=== PATIENT | male | born 1945 | race Caucasian/White ===

== ENCOUNTER 2017-12-10 09:53 | Day surgery (SDC) | payer MEDICARE, OTHER ==
[~2017-12-10 09:53] MED LIST: Metoclopramide 10 MG/2 ML SDV IV PRN; Sodium Chloride 0.9% 1,000 ML IV SCH; Sodium Chloride 0.9% 10 ML Syringe FLUSH PRN
[2017-12-10] MEDS ORDERED: Propofol 200 MG/20 ML SDV ONE (11:15)
--- NOTE | 2017-12-10 19:14 | OR ---
DATE OF OPERATION: 12/10/2017 PREOPERATIVE DIAGNOSIS: Left lower quadrant pain. POSTOPERATIVE DIAGNOSIS: Left lower quadrant pain. PROCEDURE: Colonoscopy. ANESTHESIA: MAC. ESTIMATED BLOOD LOSS: None. COMPLICATIONS: None. INDICATIONS FOR THE PROCEDURE: The patient is a 72-year-old male, who has had intermittent left lower quadrant pain now for the past several months. The patient was also due for a screening colonoscopy. Last colonoscopy was apparently at least 15 years ago. Was found to have polyps at that time. Otherwise aside from the pain, no other change in bowel habits. DESCRIPTION OF PROCEDURE: Informed consent was obtained from the patient. The patient was taken to the operating room, placed on the table in the left lateral decubitus position. Monitored anesthesia care was administered. Digital rectal exam did show some external anal skin tags. The colonoscope was then advanced through the anus and directed towards the cecum. Cecum was identified by ileocecal valve as well as appendiceal orifice. The ileocecal valve was intubated. The terminal ileum did appear to be normal. Colonoscope was then slowly withdrawn. The patient did have moderate to severe descending and sigmoid diverticulosis. No signs of any acute inflammation. The patient otherwise had no polyps, no masses, no areas of ischemia or inflammation. Retroflexion was performed in the rectum which was also unremarkable. Colonoscope was then withdrawn. FINDINGS: Moderate to severe descending and sigmoid diverticulosis. RECOMMENDATIONS: We would recommend increase water and high-fiber diet, otherwise, no further screening colonoscopies at this time. JEREMIAH/BETZY /[id number]
== END 2017-12-10 13:48 | disposition home or self-care (01) ==
LOC: LB.SDS 09:53
PROVIDERS: ATTEND Surgery
DX: K57.30 Diverticulosis of large intestine without perforation or abscess without bleeding (principal); K59.00 Constipation, unspecified; E78.00 Pure hypercholesterolemia, unspecified; I12.9 Hypertensive chronic kidney disease with stage 1 through stage 4 chronic kidney disease, or unspecified chronic kidney disease; N18.9 Chronic kidney disease, unspecified; M15.9 Polyosteoarthritis, unspecified; L20.89 Other atopic dermatitis; Z79.899 Other long term (current) drug therapy; Z88.2 Allergy status to sulfonamides; Z86.010 Personal history of colon polyps
CPT/HCPCS: J2704; J7040; J7050

== ENCOUNTER 2017-12-21 12:31 | Emergency (ER) | payer MEDICARE, OTHER ==
[~2017-12-21 12:31] MED LIST changes: -Metoclopramide 10 MG/2 ML SDV IV PRN; -Sodium Chloride 0.9% 1,000 ML IV SCH; -Sodium Chloride 0.9% 10 ML Syringe FLUSH PRN; +Sodium Chloride 0.9% 500 ML IV STA
[2017-12-21] MEDS: Sodium Chloride 0.9% 1,000 ML IV ONE (12:32)
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
[2017-12-22] MEDS ORDERED: Sodium Chloride 0.9% 10 ML Syringe FLUSH PRN (10:42)
[2017-12-22] MEDS: Sodium Chloride 0.9% 1,000 ML IV ONE (11:21)
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
== END 2017-12-21 13:34 ==
LOC: LB.ED 12:31
DX: S37.031A Laceration of right kidney, unspecified degree, initial encounter (principal); S36.113A Laceration of liver, unspecified degree, initial encounter; V49.40XA Driver injured in collision with unspecified motor vehicles in traffic accident, initial encounter
CPT/HCPCS: 36415; 36430; 51702; 71250; 74176; 80053; 85025; 86850; 86900; 86901; 86920; 86922; 96360; 99291; A0425; A0429; J7030; P9016

== ENCOUNTER 2018-10-16 09:34 | Observation (INO) | payer MEDICARE, OTHER ==
[2018-10-16] MEDS ORDERED: Ondansetron 4 MG/2 ML SDV IVPUSH ONE (09:59)
[2018-10-16] MEDS: Sodium Chloride 0.9% 1,000 ML IV SCH ×3 (10:14→15:05)
[2018-10-16] MEDS ORDERED: Ondansetron 4 MG/2 ML SDV ONE (10:15)
[2018-10-16] MEDS ORDERED: Ondansetron 4 MG/2 ML SDV IVPUSH PRN (12:20)
--- NOTE | 2018-10-16 12:56 | EDM.PDOC ---
ED HPI GENERAL MEDICAL PROBLEM - General Chief Complaint: Gastrointestinal Problem Stated Complaint: SICK Time Seen by Provider: 10/16/18 09:47 Source of Information: Reports: Patient, Family History Limitations: Reports: No Limitations - History of Present Illness INITIAL COMMENTS - FREE TEXT/NARRATIVE: This patient presents to the ED for evaluation of vomiting. He states the vomiting began during the night and he has had 10-12 episodes, continuing on arrival to the ED. Complaining of nausea but denies abdominal pain. Denies diarrhea. Completed chemo for pancreatic cancer in June 2018 but has port still in place. Has been doing well at home. Onset: Today, Sudden Onset Date: 10/16/18 Onset Time: 00:05 Duration: Getting Worse Bilateral Abdominal Pain Score (Numeric/FACES): 2 - Related Data Allergies Allergy/AdvReac Type Severity Reaction Status Date / Time No Known Allergies Allergy Verified 07/02/15 07:09 Home Meds: Home Meds Lisinopril [Prinivil] 20 mg PO DAILY 07/02/15 [History] Simvastatin [Zocor] 20 mg PO DAILY 07/02/15 [History] Enoxaparin [Lovenox] 60 mg SQ DAILY 10/16/18 [History] Past Medical History HEENT History: Reports: Cataract Cardiovascular History: Reports: High Cholesterol, Hypertension Respiratory History: Reports: Other (See Below) Other Respiratory History: 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, 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 Gastrointestinal History: Reports: Other (See Below) Other Gastrointestinal History: hx pancreatic ca Genitourinary History: Reports: Chronic Renal Insuffiency, Other (See Below) Other Genitourinary History: hx kidney stone from pet scan 1 cm, should pass Musculoskeletal History: Reports: Back Pain, Chronic Endocrine/Metabolic History: Reports: Other (See Below) Other Endocrine/Metabolic History: lynphs infected Oncologic (Cancer) History: Reports: Prostate, Other (See Below) Other Oncologic History: 2018 currently taking chemotherapy for multiple abnormalities found in abdomen, last chemo in june 2018 - Infectious Disease History Other Infectious Disease History: not sure - Past Surgical History HEENT Surgical History: Reports: Cataract Surgery GI Surgical History: Reports: Colonoscopy, Polypectomy Male Surgical History: Reports: Prostatectomy Musculoskeletal Surgical History: Reports: Hip Replacement, Shoulder Surgery Social & Family History - Family History Family Medical History: Noncontributory - Tobacco Use Smoking Status *Q: Never Smoker - Recreational Drug Use Recreational Drug Use: No ED ROS GENERAL - Review of Systems Review Of Systems: See Below Constitutional: Denies: Fever, Chills HEENT: Reports: No Symptoms Respiratory: Denies: Shortness of Breath, Wheezing, Cough Cardiovascular: Denies: Chest Pain GI/Abdominal: Reports: Nausea, Vomiting. Denies: Abdominal Pain, Diarrhea, Difficulty Swallowing Musculoskeletal: Reports: No Symptoms Skin: Reports: No Symptoms Neurological: Reports: No Symptoms ED EXAM, GI/ABD - Physical Exam Exam: See Below Exam Limited By: No Limitations General Appearance: Alert, No Apparent Distress Eyes: Bilateral: Normal Appearance Ears: Normal External Exam Nose: Normal Inspection, Normal Mucosa Throat/Mouth: Normal Inspection, Normal Oropharynx Head: Atraumatic, Normocephalic Neck: Normal Inspection, Supple, Non-Tender, Full Range of Motion Respiratory/Chest: No Respiratory Distress, Lungs Clear, Normal Breath Sounds, No Accessory Muscle Use Cardiovascular: Regular Rate, Rhythm GI/Abdominal Exam: Other (Bowel sounds hypoactive, mild abdominal distention. Tenderness with palpation of upper quadrants.) Extremities: Normal Range of Motion Neurological: Alert, Oriented Psychiatric: Normal Affect, Normal Mood Skin Exam: Warm, Dry Course - Vital Signs Last Recorded V/S: Last Vital Signs Temp 36.2 C 10/16/18 10:23 Pulse 75 10/16/18 12:10 Resp 20 10/16/18 12:10 BP 123/83 10/16/18 12:10 Pulse Ox 97 10/16/18 12:10 - Orders/Labs/Meds Orders: Active Orders 24 hr Category Date Time Status Admission Diagnosis [ADT] Urgent ADT 10/16/18 12:14 Active Patient Status [ADT] Routine ADT 10/16/18 12:19 Active Oral Fluid Challenge [RC] ASDIRECTED Care 10/16/18 12:14 Active Vital Signs [RC] PER UNIT ROUTINE Care 10/16/18 12:14 Active Abdomen Pelvis w Cont [CT] Stat Exams 10/16/18 09:58 Ordered Ondansetron [Zofran] Med 10/16/18 12:20 Active 4 mg IVPUSH Q4H PRN Sodium Chloride 0.9% [Normal Saline] 1,000 ml Med 10/16/18 10:00 Active IV ASDIRECTED Medication Orders Sodium Chloride (Normal Saline) 1,000 mls @ 1,000 mls/hr IV ASDIRECTED LAURA Last Admin: 10/16/18 12:33 Dose: 500 mls/hr Infusion: 10/16/18 11:14 Dose: 1,000 mls/hr Admin: 10/16/18 10:14 Dose: 1,000 mls/hr Ondansetron HCl (Zofran) 4 mg IVPUSH Q4H PRN PRN Reason: Nausea/Vomiting Labs: Laboratory Tests 10/16/18 Range/Units 10:15 Sodium 144 (136-145) mmol/L Potassium 4.2 (3.5-5.1) mmol/L Chloride 100 (98-107) mmol/L Carbon Dioxide 32.8 H D (21.0-32.0) mmol/L Anion Gap 15.4 H (5.0-15.0) mmol/L BUN 30 H D (8-26) mg/dL Creatinine 2.14 H D (0.70-1.30) mg/dL Est Cr Clr Drug Dosing 1.95 mL/min Estimated GFR (MDRD) 30 L (>60) MLS/MIN BUN/Creatinine Ratio 14.0 (6-25) Glucose 161 H D (74-100) mg/dL Calcium 10.1 (8.5-10.1) mg/dL Total Bilirubin 0.5 D (0.0-1.0) mg/dL AST 33 (15-37) U/L ALT 20 (12-78) U/L Alkaline Phosphatase 121 H (46-116) U/L Total Protein 9.9 H (6.4-8.2) g/dL Albumin 3.8 (3.4-5.0) g/dL Globulin 6.1 H (2.2-4.2) g/dL Albumin/Globulin Ratio 0.6 L (0.8-2.0) Meds: Medications Generic Name Dose Route Start Last Admin Trade Name Freq PRN Reason Stop Dose Admin Sodium Chloride 1,000 mls @ 1,000 mls/hr 10/16/18 10:00 10/16/18 12:33 Normal Saline IV 500 mls/hr ASDIRECTED LAURA Administration Ondansetron HCl 4 mg 10/16/18 12:20 Zofran IVPUSH Q4H PRN Nausea/Vomiting Discontinued Medications Generic Name Dose Route Start Last Admin Trade Name Olman PRN Reason Stop Dose Admin Ondansetron HCl 4 mg 10/16/18 09:59 10/16/18 10:09 Zofran IVPUSH 10/16/18 10:00 4 mg ONETIME ONE Administration Ondansetron HCl Confirm 10/16/18 10:15 10/16/18 10:18 Zofran Administered 10/16/18 10:16 Not Given Dose 4 mg .ROUTE .[facility] ONE - Re-Assessments/Exams Free Text/Narrative Re-Assessment/Exam: 10/16/18 13:00 This patient presents for evaluation of nausea and vomiting with mild abdominal pain in a nonfocal abdominal exam. I considered a broad differential diagnosis for this patient including viral gastroenteritis, bowel obstruction, intra- abdominal infection such as colitis, cholecystitis, UTI, pyelonephritis, appendicitis, etc. He did feel some better after an initial liter of normal saline but continues to have intermittent nausea with retching and vomiting small amounts liquids. After discussion with patient and , I decided to admit this patient to observation status for continuing IV fluids. Departure - Departure Time of Disposition: 12:30 Disposition: Refer to Observation Condition: Fair Clinical Impression: Vomiting - Discharge Information *PRESCRIPTION DRUG MONITORING PROGRAM REVIEWED*: Not Applicable *COPY OF PRESCRIPTION DRUG MONITORING REPORT IN PATIENT CRISTIAN: Not Applicable Referrals: PCP,None [Primary Care Provider] - - My Orders Last 24 Hours: My Active Orders 10/16/18 09:58 Abdomen Pelvis w Cont [CT] Stat 10/16/18 10:00 Sodium Chloride 0.9% [Normal Saline] 1,000 ml IV ASDIRECTED 10/16/18 12:14 Admission Diagnosis [ADT] Urgent Oral Fluid Challenge [RC] ASDIRECTED Vital Signs [RC] PER UNIT ROUTINE 10/16/18 12:19 Patient Status [ADT] Routine 10/16/18 12:20 Ondansetron [Zofran] 4 mg IVPUSH Q4H PRN - Assessment/Plan Last 24 Hours: My Active Orders 10/16/18 09:58 Abdomen Pelvis w Cont [CT] Stat 10/16/18 10:00 Sodium Chloride 0.9% [Normal Saline] 1,000 ml IV ASDIRECTED 10/16/18 12:14 Admission Diagnosis [ADT] Urgent Oral Fluid Challenge [RC] ASDIRECTED Vital Signs [RC] PER UNIT ROUTINE 10/16/18 12:19 Patient Status [ADT] Routine 10/16/18 12:20 Ondansetron [Zofran] 4 mg IVPUSH Q4H PRN
--- NOTE | 2018-10-16 16:15 | PCM.HP ---
H&P History of Present Illness - General Date of Service: 10/16/18 Admit Problem/Dx: Admission Diagnosis/Problem Admission Diagnosis/Problem Vomiting Source of Information: Patient, Family History Limitations: Reports: No Limitations - History of Present Illness Onset of Symptoms: Reports: Today Symptom Onset Date: 10/16/18 Symptom Onset Time: 00:05 Duration of Symptoms: Reports: Getting Worse Bilateral Abdominal Pain Score (Numeric/FACES): 2 - Related Data Allergies/Adverse Reactions: Allergies Allergy/AdvReac Type Severity Reaction Status Date / Time No Known Allergies Allergy Verified 07/02/15 07:09 Home Medications: Home Meds Lisinopril [Prinivil] 20 mg PO DAILY 07/02/15 [History] Simvastatin [Zocor] 20 mg PO DAILY 07/02/15 [History] Enoxaparin [Lovenox] 60 mg SQ DAILY 10/16/18 [History] Past Medical History HEENT History: Reports: Cataract Cardiovascular History: Reports: High Cholesterol, Hypertension Respiratory History: Reports: Other (See Below) Other Respiratory History: 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, 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 Gastrointestinal History: Reports: Other (See Below) Other Gastrointestinal History: hx pancreatic ca Genitourinary History: Reports: Chronic Renal Insuffiency, Other (See Below) Other Genitourinary History: hx kidney stone from pet scan 1 cm, should pass Musculoskeletal History: Reports: Back Pain, Chronic Endocrine/Metabolic History: Reports: Other (See Below) Other Endocrine/Metabolic History: lynphs infected Oncologic (Cancer) History: Reports: Prostate, Other (See Below) Other Oncologic History: 2018 currently taking chemotherapy for multiple abnormalities found in abdomen, last chemo in june 2018 - Infectious Disease History Other Infectious Disease History: not sure - Past Surgical History HEENT Surgical History: Reports: Cataract Surgery GI Surgical History: Reports: Colonoscopy, Polypectomy Male Surgical History: Reports: Prostatectomy Musculoskeletal Surgical History: Reports: Hip Replacement, Shoulder Surgery Social & Family History - Family History Family Medical History: Noncontributory - Tobacco Use Smoking Status *Q: Never Smoker Second Hand Smoke Exposure: No - Caffeine Use Caffeine Use: Reports: Coffee, Soda - Recreational Drug Use Recreational Drug Use: No H&P Review of Systems - Review of Systems: Review Of Systems: See Below General: Denies: Fever, Chills, Malaise, Weakness, Fatigue HEENT: Reports: No Symptoms Pulmonary: Reports: Shortness of Breath, Wheezing, Cough Cardiovascular: Reports: Chest Pain, Dyspnea on Exertion, Orthopnea Gastrointestinal: Reports: Distension, Nausea, Vomiting. Denies: Abdominal Pain , Constipation, Diarrhea, Difficulty Swallowing Genitourinary: Denies: Dysuria Musculoskeletal: Reports: No Symptoms Skin: Reports: No Symptoms Psychiatric: Reports: No Symptoms Neurological: Reports: No Symptoms Exam - Exam Exam: See Below - Vital Signs Vital Signs: Last Vital Signs Temp 36.2 C 10/16/18 10:23 Pulse 75 10/16/18 12:10 Resp 20 10/16/18 12:10 BP 123/83 10/16/18 12:10 Pulse Ox 97 10/16/18 12:10 Weight: 70.307 kg - Exam General: Alert, Oriented, Cooperative HEENT: PERRLA Neck: Supple Lungs: Clear to Auscultation, Normal Respiratory Effort Cardiovascular: Regular Rate, Regular Rhythm GI/Abdominal Exam: Distended, Tender, Abnormal Bowel Sounds. No: Mass Extremities: Normal Range of Motion Skin: Warm, Dry Neuro Extensive - Mental Status: Alert, Oriented x3 Psychiatric: Alert, Normal Affect, Normal Mood - Patient Data Lab Results Last 24 hrs: Laboratory Results - last 24 hr 10/16/18 Range/Units 10:15 Sodium 144 (136-145) mmol/L Potassium 4.2 (3.5-5.1) mmol/L Chloride 100 (98-107) mmol/L Carbon Dioxide 32.8 H D (21.0-32.0) mmol/L Anion Gap 15.4 H (5.0-15.0) mmol/L BUN 30 H D (8-26) mg/dL Creatinine 2.14 H D (0.70-1.30) mg/dL Est Cr Clr Drug Dosing 1.95 mL/min Estimated GFR (MDRD) 30 L (>60) MLS/MIN BUN/Creatinine Ratio 14.0 (6-25) Glucose 161 H D (74-100) mg/dL Calcium 10.1 (8.5-10.1) mg/dL Total Bilirubin 0.5 D (0.0-1.0) mg/dL AST 33 (15-37) U/L ALT 20 (12-78) U/L Alkaline Phosphatase 121 H (46-116) U/L Total Protein 9.9 H (6.4-8.2) g/dL Albumin 3.8 (3.4-5.0) g/dL Globulin 6.1 H (2.2-4.2) g/dL Albumin/Globulin Ratio 0.6 L (0.8-2.0) Result Diagrams: 10/16/18 10:15 - Problem List (1) Vomiting SNOMED Code(s): 398933836 ICD Code: R11.10 - VOMITING, UNSPECIFIED Status: Acute Current Visit: Yes Qualifiers: Vomiting type: unspecified Vomiting Intractability: non-intractable Nausea presence: with nausea Qualified Code(s): R11.2 - Nausea with vomiting, unspecified Problem List Initiated/Reviewed/Updated: Yes Orders Last 24hrs: Active Orders 24 hr Category Date Time Status Admission Diagnosis [ADT] Urgent ADT 10/16/18 12:14 Active Patient Status [ADT] Routine ADT 10/16/18 12:19 Active Oral Fluid Challenge [RC] ASDIRECTED Care 10/16/18 12:14 Active Vital Signs [RC] PER UNIT ROUTINE Care 10/16/18 12:14 Active Abdomen Pelvis w Cont [CT] Stat Exams 10/16/18 09:58 Ordered Ondansetron [Zofran] Med 10/16/18 12:20 Active 4 mg IVPUSH Q4H PRN Sodium Chloride 0.9% [Normal Saline] 1,000 ml Med 10/16/18 10:00 Active IV ASDIRECTED Medication Orders Sodium Chloride (Normal Saline) 1,000 mls @ 1,000 mls/hr IV ASDIRECTED LAURA Last Admin: 10/16/18 15:05 Dose: 500 mls/hr Infusion: 10/16/18 14:33 Dose: 500 mls/hr Admin: 10/16/18 12:33 Dose: 500 mls/hr Infusion: 10/16/18 11:14 Dose: 1,000 mls/hr Admin: 10/16/18 10:14 Dose: 1,000 mls/hr Ondansetron HCl (Zofran) 4 mg IVPUSH Q4H PRN PRN Reason: Nausea/Vomiting Last Admin: 10/16/18 12:45 Dose: 4 mg Assessment/Plan Comment:: Admit to observation status for continued IVF, Zofran as needed, and oral fluid challenge.
--- NOTE | 2018-10-16 17:08 | PCM.DCSUM1 ---
Discharge Summary - Hospital Course Free Text/Narrative:: Patient given IVF through afternoon and reports feeling much better. Has taken and retained some clear liquids as well. Denies nausea, abdominal pain, vomiting , or diarrhea. Diagnosis: Stroke: No Modified [place] Scale: No Symptoms at All Modified [place] Scale Score: 0 - Discharge Data Discharge Date: 10/16/18 Discharge Disposition: Home, Self-Care 01 Condition: Good - Discharge Diagnosis/Problem(s) (1) Vomiting SNOMED Code(s): 959424365 ICD Code: R11.10 - VOMITING, UNSPECIFIED Status: Resolved Current Visit: Yes Qualifiers: Vomiting type: unspecified Vomiting Intractability: non-intractable Nausea presence: with nausea Qualified Code(s): R11.2 - Nausea with vomiting, unspecified - Patient Instructions Diet: Usual Diet as Tolerated Activity: As Tolerated Notify Provider of: Fever, Increased Pain, Nausea and/or Vomiting - Discharge Plan *PRESCRIPTION DRUG MONITORING PROGRAM REVIEWED*: Not Applicable *COPY OF PRESCRIPTION DRUG MONITORING REPORT IN PATIENT CRISTIAN: Not Applicable Home Medications: Home Meds Lisinopril [Prinivil] 20 mg PO DAILY 07/02/15 [History] Simvastatin [Zocor] 20 mg PO DAILY 07/02/15 [History] Enoxaparin [Lovenox] 60 mg SQ DAILY 10/16/18 [History] Forms: ED Department Discharge Referrals: PCP,None [Primary Care Provider] - - Discharge Summary/Plan Comment DC Time >30 min.: No - Patient Data Vitals - Most Recent: Last Vital Signs Temp 36.5 C 10/16/18 15:45 Pulse 69 10/16/18 15:45 Resp 18 10/16/18 15:45 BP 112/79 10/16/18 15:45 Pulse Ox 95 10/16/18 15:45 Weight - Most Recent: 70.307 kg Lab Results - Last 24 hrs: Laboratory Results - last 24 hr 10/16/18 Range/Units 10:15 Sodium 144 (136-145) mmol/L Potassium 4.2 (3.5-5.1) mmol/L Chloride 100 (98-107) mmol/L Carbon Dioxide 32.8 H D (21.0-32.0) mmol/L Anion Gap 15.4 H (5.0-15.0) mmol/L BUN 30 H D (8-26) mg/dL Creatinine 2.14 H D (0.70-1.30) mg/dL Est Cr Clr Drug Dosing 1.95 mL/min Estimated GFR (MDRD) 30 L (>60) MLS/MIN BUN/Creatinine Ratio 14.0 (6-25) Glucose 161 H D (74-100) mg/dL Calcium 10.1 (8.5-10.1) mg/dL Total Bilirubin 0.5 D (0.0-1.0) mg/dL AST 33 (15-37) U/L ALT 20 (12-78) U/L Alkaline Phosphatase 121 H (46-116) U/L Total Protein 9.9 H (6.4-8.2) g/dL Albumin 3.8 (3.4-5.0) g/dL Globulin 6.1 H (2.2-4.2) g/dL Albumin/Globulin Ratio 0.6 L (0.8-2.0) Med Orders - Current: Current Medications Sodium Chloride (Normal Saline) 1,000 mls @ 1,000 mls/hr IV ASDIRECTED [facility] Last Admin: 10/16/18 15:05 Dose: 500 mls/hr Ondansetron HCl (Zofran) 4 mg IVPUSH Q4H PRN PRN Reason: Nausea/Vomiting Last Admin: 10/16/18 12:45 Dose: 4 mg Discontinued Medications Ondansetron HCl (Zofran) 4 mg IVPUSH ONETIME ONE Stop: 10/16/18 10:00 Last Admin: 10/16/18 10:09 Dose: 4 mg Ondansetron HCl (Zofran) Confirm Administered Dose 4 mg .ROUTE .[facility] ONE Stop: 10/16/18 10:16 Last Admin: 10/16/18 10:18 Dose: Not Given
--- NOTE | 2018-10-19 07:53 | CT ---
DATE OF SERVICE: 10/16/18 CLINICAL DATA: History of pancreatic cancer, now vomiting. UNENHANCED ABDOMEN AND PELVIC CT: Multislice acquisition through the abdomen and pelvis without IV or oral contrast was performed. No priors. Breathing motion artifact degrades image quality. The heart size is normal. There are atelectatic changes in both lung bases. The lung bases are otherwise clear. The unenhanced liver appears normal size with homogeneous attenuation. No focal hepatic lesions. The gallbladder appears normal. There is a small amount of fluid adjacent to the liver consistent with ascites. The spleen appears normal. The pancreas is atrophic. There are calcifications within the pancreas consistent with chronic pancreatitis. There are low density lesions in both kidneys consistent in appearance with cysts. There is a fat density mass along the posterior margin of the right kidney most likely representing an angiomyolipoma. There is also a mass-like structure located in the right renal pelvis. There is a nonobstructing renal calculus on the right. Stomach is fluid and gas-filled and moderately distended. There are multiple gas and fluid-filled loops of small bowel within the abdomen that contain air- fluid levels. Some of these are moderately dilated. These findings are consistent with a small bowel obstruction. There is diverticulosis of the descending and sigmoid colon. No evidence of diverticulitis. There is a small amount of ascites. There is soft tissue thickening of the omentum. There are also multiple loops of small bowel with apparent thickened bowel wall. No free air. No adenopathy. No other significant findings. [id number] [facility]
== END 2018-10-16 17:24 | disposition home or self-care (01) ==
LOC: LB.ED 09:34 → LB.MS 12:19
PROVIDERS: ADMIT Nurse Practitioner; ATTEND Nurse Practitioner
DX: R11.2 Nausea with vomiting, unspecified (principal); I12.9 Hypertensive chronic kidney disease with stage 1 through stage 4 chronic kidney disease, or unspecified chronic kidney disease; N18.9 Chronic kidney disease, unspecified; E78.00 Pure hypercholesterolemia, unspecified; Z79.899 Other long term (current) drug therapy
CPT/HCPCS: 36415; 74176; 80053; J2405; J7030; 30901; 99234

== ENCOUNTER 2018-10-25 11:22 | Emergency (ER) | payer MEDICARE, OTHER ==
--- NOTE | 2018-10-25 12:14 | EDM.PDOC ---
ED HPI GENERAL MEDICAL PROBLEM - General Chief Complaint: Gastrointestinal Problem Stated Complaint: STOMACH PAINS Time Seen by Provider: 10/25/18 11:55 Source of Information: Reports: Patient, Family, RN History Limitations: Reports: No Limitations - History of Present Illness INITIAL COMMENTS - FREE TEXT/NARRATIVE: 72 yr male presents with abdominal pain and right low back pain. States history of pancreatic cancer and no chemotherapy since last year. States loose BM yesterday, but no normal BM for a few days. He hasn't taken any laxatives at home. He doesn't remember the last normal BM. States hx of kidney stone, gallblader stone and back pain. Has an appointment Thursday with cardiothoracic surgery for another test. Chemotherapy is on hold until the appointment this Thursday and results of tissue sample. States the pancreatic cancer has returned. 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, 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 Gastrointestinal History: Reports: Other (See Below) Other Gastrointestinal History: hx pancreatic ca Genitourinary History: Reports: Chronic Renal Insuffiency, Other (See Below) Other Genitourinary History: hx kidney stone from pet scan 1 cm, should pass Musculoskeletal History: Reports: Back Pain, Chronic Endocrine/Metabolic History: Reports: Other (See Below) Other Endocrine/Metabolic History: lymphs infected Oncologic (Cancer) History: Reports: Prostate, Other (See Below) Other Oncologic History: 2018 currently taking chemotherapy for multiple abnormalities found in abdomen, last chemo in june 2018 - Infectious Disease History Other Infectious Disease History: not sure - Past Surgical History HEENT Surgical History: Reports: Cataract Surgery GI Surgical History: Reports: Colonoscopy, Polypectomy Male Surgical History: Reports: Prostatectomy Musculoskeletal Surgical History: Reports: Hip Replacement, Shoulder Surgery Social & Family History - Family History Family Medical History: Noncontributory - Caffeine Use Caffeine Use: Reports: Coffee, Soda ED ROS GENERAL - Review of Systems Review Of Systems: See Below Constitutional: Reports: Weakness. Denies: Fever, Chills HEENT: Denies: Sinus Problem, Throat Pain Respiratory: Denies: Shortness of Breath, Cough Cardiovascular: Denies: Chest Pain, Edema GI/Abdominal: Reports: Abdominal Pain, Diarrhea, Distension : Denies: Dysuria Musculoskeletal: Reports: Back Pain (low right back pain) Skin: Reports: No Symptoms Neurological: Reports: No Symptoms Psychiatric: Reports: No Symptoms Hematologic/Lymphatic: Reports: No Symptoms Immunologic: Reports: No Symptoms ED EXAM, GI/ABD - Physical Exam Exam: See Below Exam Limited By: No Limitations General Appearance: Alert Eyes: Bilateral: Normal Appearance Ears: Hearing Grossly Normal Nose: Normal Inspection Throat/Mouth: Normal Inspection, Normal Voice, No Airway Compromise Head: Atraumatic, Normocephalic Neck: Normal Inspection, Supple, Non-Tender Respiratory/Chest: No Respiratory Distress Cardiovascular: Regular Rate, Rhythm GI/Abdominal Exam: Tender, Other (slightly firm abdomen and bowel sounds noted to upper abdomen and decrease to lower abdomen) Back Exam: Other (right lower back pain with palpation) Extremities: Normal Inspection, Non-Tender, No Pedal Edema Neurological: Alert, Oriented, Normal Cognition Skin Exam: Warm, Dry Course - Orders/Labs/Meds Orders: Active Orders 24 hr Category Date Time Status Chest Abdomen Pelvis wo Cont [CT] Stat Exams 10/25/18 12:06 Taken Labs: Laboratory Tests 10/25/18 10/25/18 Range/Units 12:00 12:00 WBC 7.0 D (4.0-11.0) K/uL RBC 5.01 (4.50-6.50) M/uL Hgb 15.5 D (13.0-18.0) g/dL Hct 48.5 D (40.0-54.0) % MCV 97 H (76-96) fL MCH 30.9 (27.0-32.0) pg MCHC 32.0 (31.0-35.0) g/dL RDW 15.0 (11.0-16.0) % Plt Count 297 D (150-400) K/uL MPV 9.3 (6.0-10.0) fL Neut % (Auto) 78.3 H (45.0-70.0) % Lymph % (Auto) 11.0 L (20.0-40.0) % [place] % (Auto) 8.6 (3.0-10.0) % Eos % (Auto) 2.0 (1.0-5.0) % Baso % (Auto) 0.1 (0.0-0.5) % Neut # (Auto) 5.48 (2.00-7.50) K/uL Lymph # (Auto) 0.77 L (1.50-4.00) K/uL [place] # (Auto) 0.60 (0.20-0.80) K/uL Eos # (Auto) 0.14 (0.04-0.40) K/uL Baso # (Auto) 0.01 L (0.02-0.10) K/uL Sodium 141 (136-145) mmol/L Potassium 4.5 (3.5-5.1) mmol/L Chloride 100 (98-107) mmol/L Carbon Dioxide 26.7 (21.0-32.0) mmol/L Anion Gap 18.8 H (5.0-15.0) mmol/L BUN 24 (8-26) mg/dL Creatinine 1.56 H D (0.70-1.30) mg/dL Est Cr Clr Drug Dosing TNP Estimated GFR (MDRD) 44 L (>60) MLS/MIN BUN/Creatinine Ratio 15.4 (6-25) Glucose 113 H (74-100) mg/dL Calcium 10.5 H (8.5-10.1) mg/dL Total Bilirubin 0.4 (0.0-1.0) mg/dL AST 25 (15-37) U/L ALT 18 (12-78) U/L Alkaline Phosphatase 92 (46-116) U/L Total Protein 9.3 H (6.4-8.2) g/dL Albumin 3.7 (3.4-5.0) g/dL Globulin 5.6 H (2.2-4.2) g/dL Albumin/Globulin Ratio 0.7 L (0.8-2.0) Meds: Medications Discontinued Medications Generic Name Dose Route Start Last Admin Trade Name Freq PRN Reason Stop Dose Admin Morphine Sulfate Confirm 10/25/18 14:07 10/25/18 14:08 Morphine Administered 10/25/18 14:08 1 mg Dose Administration 2 mg .ROUTE .STK-MED ONE Ondansetron HCl Confirm 10/25/18 14:08 10/25/18 14:08 Zofran Odt Administered 10/25/18 14:09 4 mg Dose Administration 4 mg .ROUTE .STK-MED ONE - Re-Assessments/Exams Free Text/Narrative Re-Assessment/Exam: 10/25/18 14:[address] of chest, abdomen and pelvis reviewed with pt. Labs with no significant findings. Electrolytes normal reference range and kidney function is stable. Pt has been to bathroom X 2 to vomit. Pt feeling light headed at times and sweaty. No leukocytosis noted. CT with multiple findings. Pt does have follow-up with thoracic/cardiac surgeon on Thursday of this week. Departure - Departure Time of Disposition: 15:00 Disposition: Home, Self-Care 01 Condition: Fair (related to metastatic pancreatic cancer) Clinical Impression: Gastroenteritis - Discharge Information *PRESCRIPTION DRUG MONITORING PROGRAM REVIEWED*: Not Applicable *COPY OF PRESCRIPTION DRUG MONITORING REPORT IN PATIENT CRISTIAN: Not Applicable Prescriptions: Ondansetron [Zofran ODT] 4 mg PO Q6H PRN #10 tab.dis PRN Reason: Nausea Referrals: PCP,None [Primary Care Provider] - Forms: ED Department Discharge - My Orders Last 24 Hours: My Active Orders 10/25/18 12:06 Chest Abdomen Pelvis wo Cont [CT] Stat - Assessment/Plan Last 24 Hours: My Active Orders 10/25/18 12:06 Chest Abdomen Pelvis wo Cont [CT] Stat Plan: CT of abdomen today with continued metastatic disease with ascites noted. Will try the gas x for this. Pt is having loose stools, so probable enteritis with this. Electrolytes and kidney function stable. Pt did have a large meal last night and probable enteritis with this. Recommend liquids as tolerated. Juice, gatorade, broth, water as tolerated to prevent dehydration. Rx for Zofran and Hydrocodone today. Recommend Miralax daily to improve daily BM. RTC or ER if symptoms worsen or no improvement. F/U with thoracic/cardiac surgeon as scheduled.
[2018-10-25] MEDS ORDERED: Morphine 2 MG/ML Syringe ONE (14:07)
[2018-10-25] MEDS ORDERED: Ondansetron 4 MG Tab.DIS ONE (14:08)
--- NOTE | 2018-10-26 11:33 | CT ---
Date of Service: 10/25/18 Clinical Data: UNENHANCED CHEST CT: Multislice acquisition through the chest without IV contrast was performed. Comparison is made ao a prior exam dated 12/21/17. There are linear densities in both lung bases consistent with linear atelectasis or fibrosis. The lungs are otherwise clear. No pleural effusion. No pneumothorax. The heart size is normal. There are coronary artery calcifications. No pericardial effusion There are calcified lymph nodes noted within the mediastinum and in both sudha consistent with prior granulomatous disease. There is a right-sided Port-A-Cath in place. Its distal tip is in the superior vena cava. There is degenerative disk disease throughout the thoracic spine. No other significant findings. Date of Service: 10/25/18 Clinical Data: UNENHANCED ABDOMEN AND PELVIC CT: Multislice axial acquisition through the abdomen and pelvis without IV or oral contrast was performed. Comparison is made to prior exams date 10/16/18 and 12/21/17. The liver is normal size with homogeneous attenuation. No focal hepatic lesions. The gallbladder is mildly distended. No calcified gallstones. No pericholecystic fluid. The spleen appears normal. The pancreas appears atrophic, but otherwise unremarkable. The right and left adrenals appear normal. There is a stable nonobstructing renal calculi on the right. There is persistent atrophy of the right renal cortex with multiple fluid density lesions within the right upper pole consistent with cysts . There is a heterogeneous mass-like structure within the right renal pelvis which does not appear significantly changed from the prior exam. There is a stable predominantly fat density mass posterior to the right kidney most likely representing an angiomyolipoma. There are fluid density lesions within the upper and lower poles of the left kidney consistent with renal cysts. They are unchanged from the prior study. The patient is status post bilateral total hip arthroplasty. This does produce significant beam hardening and streak artifact obscuring adjacent structures. The bladder is not adequately seen. I cannot exclude bladder pathology. Stomach is fluid and gas filled and significantly distended. There are multiple fluid and gas filled loops of small bowel within the mid and lower abdomen and pelvis. Some of these are dilated. They contain scattered air- fluid levels. There is also mural thickening involving multiple loops of small bowel. An ileus or obstruction should be considered. Enteritis should also be considered. There is diverticulosis of the descending and sigmoid colon. No definite evidence for diverticulitis. There is mild mural thickening involving the sigmoid colon. This is probably due to chronic diverticular disease. Colitis should be considered. There is fluid adjacent to the liver consistent with ascites. There is also a small amount of free fluid noted within the pelvis and adjacent to the small bowel. This has increased from the prior study. No free air. No adenopathy. No aortic aneurysm. No lytic or blastic bone lesions. [id number] [facility]
== END 2018-10-25 15:00 | disposition home or self-care (01) ==
LOC: LB.ED 11:22
DX: K52.9 Noninfective gastroenteritis and colitis, unspecified (principal); I12.9 Hypertensive chronic kidney disease with stage 1 through stage 4 chronic kidney disease, or unspecified chronic kidney disease; N18.9 Chronic kidney disease, unspecified; E78.00 Pure hypercholesterolemia, unspecified; Z79.899 Other long term (current) drug therapy
CPT/HCPCS: 36415; 71250; 74176; 80053; 85025; 99284; A9270; J2270

== ENCOUNTER 2018-10-26 12:22 | Observation (INO) | payer MEDICARE, OTHER ==
--- NOTE | 2018-10-26 12:48 | EDM.PDOC ---
ED HPI GENERAL MEDICAL PROBLEM - General Stated Complaint: SICK Time Seen by Provider: 10/26/18 12:30 Source of Information: Reports: Patient History Limitations: Reports: No Limitations - History of Present Illness INITIAL COMMENTS - FREE TEXT/NARRATIVE: Pt claims that since today 911 emergency dispatcher has had 4 episodes of vomiting not able to keep anything down. No bile in the vomitus. Has not been wretching or in any discomfort in the emergency room. Has been feeling distended in the abdomen. No abdominal pain. Pt was seen yesterday in the emergency room for abdominal pain and vomiting. Workup was negative of dehydration or bowel obstruction. Pt was discharge home on Zofran and Gas-X, felt better all day and started having vomiting episodes 911 emergency dispatcher today. Pt has pancreatic cancer and has had chemotherapy, presently on hold until has cardiac workup. No fever or chills. No cough , wheezing or shortness of breath. Onset: Today Onset Date: 10/26/18 Onset Time: 01:00 Severity: Mild Improves with: Reports: None Worsens with: Reports: None Associated Symptoms: Reports: Nausea/Vomiting. Denies: Confusion, Chest Pain, Cough, Diaphoresis, Fever/Chills, Headaches, Loss of Appetite, Malaise, Rash, Seizure, Shortness of Breath, Syncope, Weakness - Related Data Allergies Allergy/AdvReac Type Severity Reaction Status Date / Time No Known Allergies Allergy Verified 10/25/18 13:19 Home Meds: Home Meds Lisinopril [Prinivil] 20 mg PO DAILY 07/02/15 [History] Simvastatin [Zocor] 20 mg PO DAILY 07/02/15 [History] Enoxaparin [Lovenox] 60 mg SQ DAILY 10/16/18 [History] Ondansetron [Zofran ODT] 4 mg PO Q6H PRN #10 tab.dis 10/25/18 [Rx] Simethicone [Gas-X] 125 mg PO ASDIRECTED 10/26/18 [History] Past Medical History HEENT History: Reports: Cataract Cardiovascular History: Reports: High Cholesterol, Hypertension Respiratory History: Reports: Other (See Below) Other Respiratory History: 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, 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 Gastrointestinal History: Reports: Other (See Below) Other Gastrointestinal History: hx pancreatic ca Genitourinary History: Reports: Chronic Renal Insuffiency, Other (See Below) Other Genitourinary History: hx kidney stone from pet scan 1 cm, should pass Musculoskeletal History: Reports: Back Pain, Chronic Endocrine/Metabolic History: Reports: Other (See Below) Other Endocrine/Metabolic History: lymphs infected Oncologic (Cancer) History: Reports: Prostate, Other (See Below) Other Oncologic History: 2018 currently taking chemotherapy for multiple abnormalities found in abdomen, last chemo in june 2018 - Infectious Disease History Other Infectious Disease History: not sure - Past Surgical History HEENT Surgical History: Reports: Cataract Surgery GI Surgical History: Reports: Colonoscopy, Polypectomy Male Surgical History: Reports: Prostatectomy Musculoskeletal Surgical History: Reports: Hip Replacement, Shoulder Surgery Social & Family History - Family History Family Medical History: Noncontributory - Caffeine Use Caffeine Use: Reports: Coffee, Soda ED ROS GENERAL - Review of Systems Review Of Systems: See Below Constitutional: Reports: Weakness. Denies: Fever, Chills, Night Sweats, Diaphoresis HEENT: Denies: Ear Discharge, Rhinitis, Throat Pain, Throat Swelling Respiratory: Denies: Shortness of Breath, Pleuritic Chest Pain, Cough, Sputum Cardiovascular: Denies: Chest Pain, Lightheadedness GI/Abdominal: Reports: Distension, Nausea, Vomiting. Denies: Abdominal Pain, Constipation, Diarrhea, Flatus Musculoskeletal: Denies: Joint Pain, Joint Swelling Skin: Denies: Bruising, Pruritis, Rash ED EXAM, GENERAL - Physical Exam Exam: See Below Exam Limited By: No Limitations General Appearance: Alert, WD/WN, No Apparent Distress, Other (appears very comfortable. Tongue is pink and moist. Hydration appears appropriate.) Eye Exam: Bilateral Eye: EOMI, PERRL Ears: Normal External Exam, Normal Canal, Hearing Grossly Normal, Normal TMs Ear Exam: Bilateral Ear: Auricle Normal, Canal Normal, TM normal Nose: Normal Inspection, Normal Mucosa, No Blood Throat/Mouth: Normal Inspection, Normal Lips, Normal Teeth, Normal Gums, Normal Oropharynx, Normal Voice, No Airway Compromise Head: Atraumatic, Normocephalic Neck: Normal Inspection, Supple, Non-Tender, Full Range of Motion Respiratory/Chest: No Respiratory Distress, Lungs Clear, Normal Breath Sounds, No Accessory Muscle Use, Chest Non-Tender Cardiovascular: Normal Peripheral Pulses, Regular Rate, Rhythm, No Edema, No Gallop, No JVD, No Murmur, No Rub GI/Abdominal: Soft, Non-Tender, No Organomegaly, No Abnormal Bruit, No Mass, Distended, Abnormal Bowel Sounds (slightly hyperactive bowel sounds). No: Guarding, Rigid, Rebound, Tender Extremities: Normal Inspection, Normal Range of Motion, Non-Tender, Normal Capillary Refill, No Pedal Edema Neurological: Alert, Oriented Course - Vital Signs Text/Narrative:: Pt's initial vitals are stable. On clinical exam his abdomen is distended and slightly hyperactive bowel sounds, but non tender. He is not wretching or vomiting here in the emergency room. CBC shows normal White count. His BMP shows normal electrolytes but his creat is up from 1.56 yesterday to 3.0 today.His BUN is up form 24 to 41 today.Also his Abdominal X-ray upright shows multiple air-fluid levels. Pt appears to have bowel obstruction with dehydration. Results discussed with patient and his spouse. Will admit patient to observation , for IV hydration and conservative management of bowel obstruction. I have started him on IV normal saline at 150cc/hr. Will keep him NPO, Zofran 4mg IV TID for vomiting. Will repeat BMP with Abdominal X-ray upright in Am. - Orders/Labs/Meds Orders: Active Orders 24 hr Category Date Time Status Abdomen 1V Upright [CR] Stat Exams 10/26/18 12:42 Taken Sodium Chloride 0.9% [Normal Saline] 1,000 ml Med 10/26/18 13:00 Active IV ASDIRECTED Medication Orders Sodium Chloride (Normal Saline) 1,000 mls @ 150 mls/hr IV ASDIRECTED LAURA Labs: Laboratory Tests 10/26/18 10/26/18 Range/Units 12:53 12:53 WBC 8.6 D (4.0-11.0) K/uL RBC 5.28 (4.50-6.50) M/uL Hgb 16.3 (13.0-18.0) g/dL Hct 50.6 (40.0-54.0) % MCV 96 (76-96) fL MCH 30.9 (27.0-32.0) pg MCHC 32.2 (31.0-35.0) g/dL RDW 15.0 (11.0-16.0) % Plt Count 345 (150-400) K/uL MPV 9.6 (6.0-10.0) fL Neut % (Auto) 78.5 H (45.0-70.0) % Lymph % (Auto) 10.1 L (20.0-40.0) % [place] % (Auto) 10.0 (3.0-10.0) % Eos % (Auto) 0.9 L (1.0-5.0) % Baso % (Auto) 0.5 (0.0-0.5) % Neut # (Auto) 6.74 (2.00-7.50) K/uL Lymph # (Auto) 0.87 L (1.50-4.00) K/uL [place] # (Auto) 0.86 H (0.20-0.80) K/uL Eos # (Auto) 0.08 (0.04-0.40) K/uL Baso # (Auto) 0.04 (0.02-0.10) K/uL POC Sodium 140 (136-145) mmol/L POC Potassium 4.2 (3.5-5.1) mmol/L POC Chloride 98 (98-109) mmol/L POC Total CO2 29.0 (23.0-30.0) mmol/L POC Anion Gap 19.0 H (5.0-15.0) mmol/L POC BUN 41 H (8-26) mg/dL POC Creatinine 3.0 H (0.5-1.2) mg/dL POC Glucose 128 H (74-100) mg/dL POC WB Ioniz Calcium 5.1 (4.5-5.3) mg/dL Meds: Medications Generic Name Dose Route Start Last Admin Trade Name Freq PRN Reason Stop Dose Admin Sodium Chloride 1,000 mls @ 150 mls/hr 10/26/18 13:00 Normal Saline IV ASDIRECTED LAURA Departure - Departure Time of Disposition: 13:15 Disposition: Refer to Observation Condition: Fair Clinical Impression: Bowel obstruction - Discharge Information *PRESCRIPTION DRUG MONITORING PROGRAM REVIEWED*: Not Applicable *COPY OF PRESCRIPTION DRUG MONITORING REPORT IN PATIENT CRISTIAN: Not Applicable Referrals: PCP,None [Primary Care Provider] - - Problem List & Annotations (1) Bowel obstruction SNOMED Code(s): 63115538 Code(s): K56.609 - UNSP INTESTNL OBST, UNSP TO PARTIAL VERSUS COMPLETE OBST Status: Acute Current Visit: Yes - Problem List Review Problem List Initiated/Reviewed/Updated: Yes - My Orders Last 24 Hours: My Active Orders 10/26/18 12:42 Abdomen 1V Upright [CR] Stat 10/26/18 13:00 Sodium Chloride 0.9% [Normal Saline] 1,000 ml IV ASDIRECTED - Assessment/Plan Admission H&P: Please use this note as an admission H&P Last 24 Hours: My Active Orders 10/26/18 12:42 Abdomen 1V Upright [CR] Stat 10/26/18 13:00 Sodium Chloride 0.9% [Normal Saline] 1,000 ml IV ASDIRECTED Assessment:: Bowel obstruction Plan: Pt's initial vitals are stable. On clinical exam his abdomen is distended and slightly hyperactive bowel sounds, but non tender. He is not wretching or vomiting here in the emergency room. CBC shows normal White count. His BMP shows normal electrolytes but his creat is up from 1.56 yesterday to 3.0 today.His BUN is up form 24 to 41 today.Also his Abdominal X-ray upright shows multiple air-fluid levels. Pt appears to have bowel obstruction with dehydration. Results discussed with patient and his spouse. Will admit patient to observation , for IV hydration and conservative management of bowel obstruction. I have started him on IV normal saline at 150cc/hr. Will keep him NPO, Zofran 4mg IV TID for vomiting. Will repeat BMP with Abdominal X-ray upright in Am.
[2018-10-26] MEDS: Sodium Chloride 0.9% 1,000 ML IV SCH ×2 (13:00→19:17)
[2018-10-26] MEDS ORDERED: Sodium Chloride 0.9% 10 ML Syringe FLUSH PRN (13:20)
[2018-10-26] MEDS ORDERED: Ondansetron 4 MG/2 ML SDV IV PRN (13:20)
[2018-10-26] MEDS ORDERED: Pantoprazole 40 MG Vial IV ONE (13:20)
--- NOTE | 2018-10-26 16:21 | CR ---
DATE OF SERVICE: 10/26/18 CLINICAL DATA: Nausea , vomiting, abdominal distension. UPRIGHT ABDOMEN: No free air. There are scattered air-fluid levels in the small bowel and colon. No clearly distended loops of bowel. Enterocolitis should be considered. I cannot exclude an ileus or distal obstruction. No other significant findings. [id number] [facility]
[2018-10-26] MEDS: Enoxaparin 60 MG/0.6 ML Syringe SUBCUT SCH (19:54)
[2018-10-27] MEDS: Sodium Chloride 0.9% 1,000 ML IV SCH (01:39)
[2018-10-27] MEDS: Enoxaparin 60 MG/0.6 ML Syringe SUBCUT SCH (07:46)
[2018-10-27] MEDS ORDERED: Enoxaparin 60 MG/0.6 ML Syringe SUBCUT SCH (08:00)
--- NOTE | 2018-10-27 08:19 | CR ---
DATE OF SERVICE: 10/27/18 CLINICAL DATA: SBO. UPRIGHT ABDOMEN: No free air. There are scattered air-fluid levels in the small bowel and colon. There has been significant improvement when compared to the prior exam with decreased number of air-fluid levels and decreased gas within the small bowel and colon. No dilated loops of bowel. No new abnormalities. [id number] [facility]
--- NOTE | 2018-10-27 08:58 | PCM.DCSUM1 ---
Discharge Summary - Hospital Course Free Text/Narrative:: Pt was admitted to hospital with diagnosis of early small bowel obstruction with dehydration, yesterday. Pt was placed on conservative management with IV fluids and NPO. HE was started on Normal saline IV. Pt has had uneventful night. He has been passing flatus since financial reporting specialist. He did have a good bowel movement around 7:30 am today. Pt's Abdominal X-ray upright today shows resolved air fluids level. Pt claims his nausea and vomiting have resolved. His abdominal distension has resolved. Clinical exam today appears normal. His electrolytes are stable, his creat is down form 3 yesterday to 2.29 today. Pt was started on clear liquid diet. Pt has been tolerating it well. Pt has been discharge. Advised to followup with his primary care provider next week. Brief History: Presented with abdominal distension, nausea , vomting. Pt's workup in the emergency room showed mutiple air fluid levels with elevated creat and BUN. Admitted for conservative management of bowel obstruction. Kindly see H&P for details. Diagnosis: Stroke: No - Discharge Data Discharge Date: 10/27/18 Discharge Disposition: Home, Self-Care 01 Condition: Good - Discharge Diagnosis/Problem(s) (1) Bowel obstruction SNOMED Code(s): 56523074 ICD Code: K56.609 - UNSP INTESTNL OBST, UNSP TO PARTIAL VERSUS COMPLETE OBST Status: Acute Current Visit: Yes - Patient Instructions Diet: Mechanical Soft Fluid Restriction: 1500 mL Activity: As Tolerated Showering/Bathing: May Shower - Discharge Plan *PRESCRIPTION DRUG MONITORING PROGRAM REVIEWED*: Not Applicable *COPY OF PRESCRIPTION DRUG MONITORING REPORT IN PATIENT CRISTIAN: Not Applicable Home Medications: Home Meds Lisinopril [Prinivil] 20 mg PO DAILY 07/02/15 [History] Simvastatin [Zocor] 20 mg PO DAILY 07/02/15 [History] Enoxaparin [Lovenox] 60 mg SQ BID 10/16/18 [History] Ondansetron [Zofran ODT] 4 mg PO Q6H PRN #10 tab.dis 10/25/18 [Rx] Simethicone [Gas-X] 125 mg PO ASDIRECTED 10/26/18 [History] Referrals: PCP,None [Primary Care Provider] - - Discharge Summary/Plan Comment DC Time >30 min.: Yes - General Info Date of Service: 10/27/18 Subjective Update: Pt claims he feels better today. More energetic. Has been passing flatus. Also has had good BM at 7:30 am. No fever, no nausea or vomiting.No complaints. Functional Status: Reports: Pain Controlled, Tolerating Diet, Ambulating, Urinating - Review of Systems General: Denies: Fever, Weakness, Fatigue HEENT: Denies: Headaches, Sinus Congestion, Sore Throat Pulmonary: Denies: Shortness of Breath, Pleuritic Chest Pain, Sputum, Hemoptysis Cardiovascular: Denies: Chest Pain, Lightheadedness Gastrointestinal: Reports: Flatus. Denies: Abdominal Pain, Constipation, Diarrhea, Nausea, Vomiting Genitourinary: Denies: Dysuria, Frequency Musculoskeletal: Denies: Joint Pain, Joint Swelling Skin: Denies: Bruising, Pruritis, Rash Neurological: Denies: Confusion, Dizziness, Headache, Numbness, Tingling - Patient Data Vitals - Most Recent: Last Vital Signs Temp 98.4 F 10/27/18 05:00 Pulse 70 10/27/18 05:00 Resp 18 10/27/18 05:00 BP 124/80 10/27/18 05:00 Pulse Ox 99 10/27/18 05:00 Weight - Most Recent: 68.765 kg I&O - Last 24 hours: Intake & Output 10/26/18 10/27/18 10/27/18 22:59 06:59 14:59 Intake Total 950 1800 Balance 950 1800 Lab Results - Last 24 hrs: Laboratory Results - last 24 hr 10/26/18 10/26/18 10/27/18 Range/Units 12:53 12:53 07:15 WBC 8.6 D (4.0-11.0) K/uL RBC 5.28 (4.50-6.50) M/uL Hgb 16.3 (13.0-18.0) g/dL Hct 50.6 (40.0-54.0) % MCV 96 (76-96) fL MCH 30.9 (27.0-32.0) pg MCHC 32.2 (31.0-35.0) g/dL RDW 15.0 (11.0-16.0) % Plt Count 345 (150-400) K/uL MPV 9.6 (6.0-10.0) fL Neut % (Auto) 78.5 H (45.0-70.0) % Lymph % (Auto) 10.1 L (20.0-40.0) % [place] % (Auto) 10.0 (3.0-10.0) % Eos % (Auto) 0.9 L (1.0-5.0) % Baso % (Auto) 0.5 (0.0-0.5) % Neut # (Auto) 6.74 (2.00-7.50) K/uL Lymph # (Auto) 0.87 L (1.50-4.00) K/uL [place] # (Auto) 0.86 H (0.20-0.80) K/uL Eos # (Auto) 0.08 (0.04-0.40) K/uL Baso # (Auto) 0.04 (0.02-0.10) K/uL POC Sodium 140 (136-145) mmol/L Sodium 143 (136-145) mmol/L POC Potassium 4.2 (3.5-5.1) mmol/L Potassium 4.6 (3.5-5.1) mmol/L POC Chloride 98 (98-109) mmol/L Chloride 107 (98-107) mmol/L Carbon Dioxide 26.3 (21.0-32.0) mmol/L POC Total CO2 29.0 (23.0-30.0) mmol/L Anion Gap 14.3 (5.0-15.0) mmol/L POC Anion Gap 19.0 H (5.0-15.0) mmol/L POC BUN 41 H (8-26) mg/dL BUN 46 H D (8-26) mg/dL Creatinine 2.29 H D (0.70-1.30) mg/dL POC Creatinine 3.0 H (0.5-1.2) mg/dL Est Cr Clr Drug Dosing 25.93 mL/min Estimated GFR (MDRD) 28 L (>60) MLS/MIN BUN/Creatinine Ratio 20.1 (6-25) Glucose 79 D (74-100) mg/dL POC Glucose 128 H (74-100) mg/dL Calcium 8.1 L D (8.5-10.1) mg/dL POC WB Ioniz Calcium 5.1 (4.5-5.3) mg/dL Med Orders - Current: Current Medications Enoxaparin Sodium (Lovenox) 60 mg SUBCUT BID [facility] Last Admin: 10/27/18 07:46 Dose: 60 mg Sodium Chloride (Normal Saline) 1,000 mls @ 150 mls/hr IV ASDIRECTED [facility] Last Admin: 10/27/18 01:39 Dose: 150 mls/hr Ondansetron HCl (Zofran) 4 mg IV Q6H PRN PRN Reason: Nausea/Vomiting Last Admin: 10/26/18 14:21 Dose: 4 mg Sodium Chloride (Saline Flush) 10 ml FLUSH ASDIRECTED PRN PRN Reason: Keep Vein Open Last Admin: 10/26/18 14:21 Dose: 10 ml Discontinued Medications Enoxaparin Sodium (Lovenox) 60 mg SUBCUT DAILY [facility] [place] Pantoprazole Sodium (Protonix Iv) 40 mg IV ONETIME ONE Stop: 10/26/18 13:21 Last Admin: 10/26/18 14:21 Dose: 40 mg - Exam General: Reports: Alert, Oriented, Cooperative HEENT: Reports: Pupils Equal, Pupils Reactive, EOMI, Mucous Membr. Moist/[place] Neck: Reports: Supple Lungs: Reports: Clear to Auscultation, Normal Respiratory Effort Cardiovascular: Reports: Regular Rate, Regular Rhythm GI/Abdominal Exam: Normal Bowel Sounds, Soft, Non-Tender, No Organomegaly, No Distention, No Abnormal Bruit, No Mass, Pelvis Stable Extremities: Normal Inspection, Normal Range of Motion, Non-Tender, No Pedal Edema, Normal Capillary Refill Skin: Reports: Warm, Intact
== END 2018-10-27 09:52 | disposition home or self-care (01) ==
LOC: LB.ED 12:22 → LB.MS 13:11 → UNDOADMOB 13:11 → LB.MS 13:20
PROVIDERS: ADMIT Family Medicine; ATTEND Family Medicine
DX: K56.609 Unspecified intestinal obstruction, unspecified as to partial versus complete obstruction (principal); I12.9 Hypertensive chronic kidney disease with stage 1 through stage 4 chronic kidney disease, or unspecified chronic kidney disease; N18.9 Chronic kidney disease, unspecified; E78.00 Pure hypercholesterolemia, unspecified; Z79.899 Other long term (current) drug therapy
CPT/HCPCS: 36415; 74018; 80047; 80048; 85025; 96372; C9113; J1650; J2405; J7030; 96361; 96374; 96375; G0378

== ENCOUNTER 2018-10-30 12:40 | Observation (INO) | payer MEDICARE, OTHER ==
[2018-10-30] MEDS: Sodium Chloride 0.9% 1,000 ML IV SCH ×2 (13:45→20:38)
[2018-10-30] MEDS ORDERED: Sodium Chloride 0.9% 10 ML Syringe FLUSH PRN (13:48)
--- NOTE | 2018-10-30 14:01 | EDM.PDOC ---
ED HPI GENERAL MEDICAL PROBLEM - General Chief Complaint: Gastrointestinal Problem Stated Complaint: ABD PAIN, BLOATING Time Seen by Provider: 10/30/18 13:00 Source of Information: Reports: Patient History Limitations: Reports: No Limitations - History of Present Illness INITIAL COMMENTS - FREE TEXT/NARRATIVE: Pt is 72 year old male, who has metastatic pancreatic cancer. Who presents today with c/o abdominal distension and not able to pass any flatus since morning. Claims his stomach feels tight. No nausea or vomiting. No fever or chills. He did have 2 small liquid stools yesterday. Pt was seen here on 10/26/18 with similar symptoms and was admitted for resolving his bowel obstruction. Pt was discharged on 10/27/18. Onset: Today, Gradual Quality: Reports: Ache Severity: Moderate Improves with: Reports: None Worsens with: Reports: None Associated Symptoms: Denies: Confusion, Chest Pain, Cough, Diaphoresis, Fever/ Chills, Headaches, Loss of Appetite, Nausea/Vomiting, Rash, Seizure, Shortness of Breath, Syncope, Weakness - Related Data Allergies Allergy/AdvReac Type Severity Reaction Status Date / Time No Known Allergies Allergy Verified 10/30/18 12:56 Home Meds: Home Meds Simvastatin [Zocor] 20 mg PO DAILY 07/02/15 [History] Enoxaparin [Lovenox] 60 mg SQ BID 10/16/18 [History] Ondansetron [Zofran ODT] 4 mg PO Q6H PRN #10 tab.dis 10/25/18 [Rx] Simethicone [Gas-X] 125 mg PO ASDIRECTED 10/26/18 [History] Past Medical History HEENT History: Reports: Cataract Cardiovascular History: Reports: High Cholesterol, Hypertension Respiratory History: Reports: Other (See Below) Other Respiratory History: 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, 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 Gastrointestinal History: Reports: Other (See Below) Other Gastrointestinal History: hx pancreatic ca, bowel obstructions, has been in ER x 3 this week Genitourinary History: Reports: Chronic Renal Insuffiency, Other (See Below) Other Genitourinary History: hx kidney stone from pet scan 1 cm, should pass Musculoskeletal History: Reports: Back Pain, Chronic Psychiatric History: Reports: None Endocrine/Metabolic History: Reports: Other (See Below) Other Endocrine/Metabolic History: lymphs infected Oncologic (Cancer) History: Reports: Pancreatic, Prostate, Other (See Below) Other Oncologic History: 2018 currently taking chemotherapy for multiple abnormalities found in abdomen, last chemo in june 2018, pancreatic cancer - Infectious Disease History Other Infectious Disease History: not sure - Past Surgical History HEENT Surgical History: Reports: Cataract Surgery GI Surgical History: Reports: Colonoscopy, Polypectomy Male Surgical History: Reports: Prostatectomy Musculoskeletal Surgical History: Reports: Hip Replacement, Shoulder Surgery Social & Family History - Family History Family Medical History: Noncontributory - Caffeine Use Caffeine Use: Reports: Coffee, Soda ED ROS GENERAL - Review of Systems Review Of Systems: See Below Constitutional: Reports: Weakness. Denies: Fever, Chills, Malaise HEENT: Denies: Rhinitis, Throat Pain, Throat Swelling Respiratory: Denies: Shortness of Breath, Pleuritic Chest Pain, Cough, Sputum Cardiovascular: Denies: Chest Pain, Lightheadedness GI/Abdominal: Reports: Abdominal Pain, Distension. Denies: Constipation, Diarrhea, Flatus, Nausea, Vomiting : Denies: Dysuria, Flank Pain, Hematuria Musculoskeletal: Denies: Joint Pain, Joint Swelling ED EXAM, GENERAL - Physical Exam Exam: See Below Exam Limited By: No Limitations General Appearance: Alert, WD/WN, No Apparent Distress Eye Exam: Bilateral Eye: EOMI, Foreign Body Ears: Normal External Exam, Normal Canal, Hearing Grossly Normal, Normal TMs Ear Exam: Bilateral Ear: Auricle Normal, Canal Normal, TM normal Nose: Normal Inspection, Normal Mucosa, No Blood Throat/Mouth: Normal Inspection, Normal Lips, Normal Teeth, Normal Gums, Normal Oropharynx, Normal Voice, No Airway Compromise Head: Atraumatic, Normocephalic Neck: Normal Inspection, Supple, Non-Tender, Full Range of Motion Respiratory/Chest: No Respiratory Distress, Lungs Clear, Normal Breath Sounds, No Accessory Muscle Use, Chest Non-Tender Cardiovascular: Normal Peripheral Pulses, Regular Rate, Rhythm, No Edema, No Gallop, No JVD, No Murmur, No Rub GI/Abdominal: Distended, Tender. No: Guarding, Rigid, Rebound, Abnormal Bowel Sounds (slightly hypoactive bowel sounds) Extremities: Normal Inspection, Normal Range of Motion, Non-Tender, Normal Capillary Refill, No Pedal Edema Skin Exam: Warm, Intact Course - Vital Signs Text/Narrative:: Pt has small bowel ileus. His BMP is normal His creat is down from 2.29 on to 1.25 today. His electrolytes are stable. On clinical exam he does have abdominal distension with slightly hypoactive bowel sounds and his AXR does shows air fluid level in small bowels. He does not have acute abdominal spasm.Will start IV fluids and keep him NPO. NS at 125cc/hr. Will hold all oral meds until ileus clears.Will repeat BMP and Upright abdominal X-ray in am. I did go through patient's previous visits to the emergency room.Pt does not appear to have small bowel obstruction as he does not get acute abdominal pain when this happens. And also there are no dilated bowel loops noted on Xrays or CTs. Apprently he has had 2 CT abdomen and multiple AXR in the past 15 days, and all have similar findings. This appears like recurrent small bowel ileus, which resolve with overnight IV hydration. His potassium has been normal every visit he has been to this hospital, so this is not hypokalemic ileus. Neither is there any finding of surgical obstruction . It is always central abdominal ileus. He might need further workup to look into the cause of recurrent ileus. Last Recorded V/S: Last Vital Signs Temp 97 F 10/30/18 12:40 Pulse 56 L 10/30/18 12:40 Resp 20 10/30/18 12:40 BP 144/96 H 10/30/18 12:40 Pulse Ox 99 10/30/18 12:40 - Orders/Labs/Meds Orders: Active Orders 24 hr Category Date Time Status Patient Status [ADT] Routine ADT 10/30/18 13:48 Active Bedrest Bathroom Privileges [RC] ASDIRECTED Care 10/30/18 13:48 Active Height and Weight [RC] UPON Care 10/30/18 13:48 Active Intake and Output [RC] QSHIFT Care 10/30/18 13:50 Active Oxygen Therapy [RC] PRN Care 10/30/18 13:48 Active VTE/DVT Education [RC] Per Unit Routine Care 10/30/18 13:48 Active Vital Signs [RC] Q4H Care 10/30/18 13:48 Active Nothing per Oral Now Diet [DIET] Diet 10/30/18 Dinner Ordered Abdomen 1V Upright [CR] Stat Exams 10/30/18 13:52 Stop Req Abdomen 2V AP Flat Upright [CR] Routine Exams 10/31/18 08:00 Ordered Abdomen 2V AP Flat Upright [CR] Stat Exams 10/30/18 12:57 Taken BASIC METABOLIC PANEL,BMP [CHEM] Routine Lab 10/31/18 08:00 Ordered BASIC METABOLIC PANEL,BMP [CHEM] Stat Lab 10/30/18 12:55 Ordered CULTURE MRSA SURVEY [RM] Stat Lab 10/30/18 12:53 Ordered Sodium Chloride 0.9% [Normal Saline] 1,000 ml Med 10/30/18 14:00 Active IV ASDIRECTED Sodium Chloride 0.9% [Saline Flush] Med 10/30/18 13:48 Active 10 ml FLUSH ASDIRECTED PRN Peripheral IV Insertion Adult [OM.PC] Routine Oth 10/30/18 13:48 Ordered Resuscitation Status Routine Resus Stat 10/30/18 13:48 Ordered Medication Orders Sodium Chloride (Normal Saline) 1,000 mls @ 125 mls/hr IV ASDIRECTED LAURA Sodium Chloride (Saline Flush) 10 ml FLUSH ASDIRECTED PRN PRN Reason: Keep Vein Open Labs: Laboratory Tests 10/30/18 Range/Units 12:10 Sodium 139 (136-145) mmol/L Potassium 3.9 (3.5-5.1) mmol/L Chloride 102 (98-107) mmol/L Carbon Dioxide 26.7 (21.0-32.0) mmol/L Anion Gap 14.2 (5.0-15.0) mmol/L BUN 12 D (8-26) mg/dL Creatinine 1.25 D (0.70-1.30) mg/dL Est Cr Clr Drug Dosing TNP Estimated GFR (MDRD) 57 L (>60) MLS/MIN BUN/Creatinine Ratio 9.6 (6-25) Glucose 105 H D (74-100) mg/dL Calcium 8.8 (8.5-10.1) mg/dL Meds: Medications Generic Name Dose Route Start Last Admin Trade Name Freq PRN Reason Stop Dose Admin Sodium Chloride 1,000 mls @ 125 mls/hr 10/30/18 14:00 Normal Saline IV ASDIRECTED LAURA Sodium Chloride 10 ml 10/30/18 13:48 Saline Flush FLUSH ASDIRECTED PRN Keep Vein Open Departure - Departure Time of Disposition: 11:40 Disposition: Refer to Observation Condition: Fair Clinical Impression: Ileus - Discharge Information *PRESCRIPTION DRUG MONITORING PROGRAM REVIEWED*: Not Applicable *COPY OF PRESCRIPTION DRUG MONITORING REPORT IN PATIENT CRISTIAN: Not Applicable - Problem List & Annotations (1) Ileus SNOMED Code(s): 065924213 Code(s): K56.7 - ILEUS, UNSPECIFIED Status: Acute - Problem List Review Problem List Initiated/Reviewed/Updated: Yes - My Orders Last 24 Hours: My Active Orders 10/30/18 12:53 CULTURE MRSA SURVEY [RM] Stat 10/30/18 12:55 BASIC METABOLIC PANEL,BMP [CHEM] Stat 10/30/18 12:57 Abdomen 2V AP Flat Upright [CR] Stat 10/30/18 13:48 Patient Status [ADT] Routine Bedrest Bathroom Privileges [RC] ASDIRECTED Height and Weight [RC] UPON Oxygen Therapy [RC] PRN VTE/DVT Education [RC] Per Unit Routine Vital Signs [RC] Q4H Sodium Chloride 0.9% [Saline Flush] 10 ml FLUSH ASDIRECTED PRN Peripheral IV Insertion Adult [OM.PC] Routine Resuscitation Status Routine 10/30/18 13:50 Intake and Output [RC] QSHIFT 10/30/18 13:52 Abdomen 1V Upright [CR] Stat 10/30/18 14:00 Sodium Chloride 0.9% [Normal Saline] 1,000 ml IV ASDIRECTED 10/30/18 Dinner Nothing per Oral Now Diet [DIET] 10/31/18 08:00 Abdomen 2V AP Flat Upright [CR] Routine BASIC METABOLIC PANEL,BMP [CHEM] Routine - Assessment/Plan Last 24 Hours: My Active Orders 10/30/18 12:53 CULTURE MRSA SURVEY [RM] Stat 10/30/18 12:55 BASIC METABOLIC PANEL,BMP [CHEM] Stat 10/30/18 12:57 Abdomen 2V AP Flat Upright [CR] Stat 10/30/18 13:48 Patient Status [ADT] Routine Bedrest Bathroom Privileges [RC] ASDIRECTED Height and Weight [RC] UPON Oxygen Therapy [RC] PRN VTE/DVT Education [RC] Per Unit Routine Vital Signs [RC] Q4H Sodium Chloride 0.9% [Saline Flush] 10 ml FLUSH ASDIRECTED PRN Peripheral IV Insertion Adult [OM.PC] Routine Resuscitation Status Routine 10/30/18 13:50 Intake and Output [RC] QSHIFT 10/30/18 13:52 Abdomen 1V Upright [CR] Stat 10/30/18 14:00 Sodium Chloride 0.9% [Normal Saline] 1,000 ml IV ASDIRECTED 10/30/18 Dinner Nothing per Oral Now Diet [DIET] 10/31/18 08:00 Abdomen 2V AP Flat Upright [CR] Routine BASIC METABOLIC PANEL,BMP [CHEM] Routine Assessment:: Small bowel ileus Plan: Pt has small bowel ileus. His BMP is normal His creat is down from 2.29 on to 1.25 today. His electrolytes are stable. On clinical exam he does have abdominal distension with slightly hypoactive bowel sounds and his AXR does shows air fluid level in small bowels. He does not have acute abdominal spasm.Will start IV fluids and keep him NPO. NS at 125cc/hr. Will hold all oral meds until ileus clears.Will repeat BMP and Upright abdominal X-ray in am.
[2018-10-30] MEDS: Enoxaparin 60 MG/0.6 ML Syringe SUBCUT SCH (19:39)
[2018-10-30] MEDS ORDERED: LORazepam 2 MG/ML SDV IVPUSH ONE (20:20)
[2018-10-31] MEDS: Sodium Chloride 0.9% 1,000 ML IV SCH (04:45)
[2018-10-31] MEDS: Enoxaparin 60 MG/0.6 ML Syringe SUBCUT SCH ×2 (08:29→19:45)
[2018-10-31] MEDS ORDERED: Simethicone 80 MG Tab.Chew ONE (10:56)
[2018-10-31] MEDS ORDERED: Simethicone 80 MG Tab.Chew PO ONE (10:57)
--- NOTE | 2018-10-31 14:45 | CR ---
Date of Service: 10/30/18 Clinical Data: SUPINE AND UPRIGHT ABDOMEN: Comparison is made to a prior dated 10/27/18. There is a moderate amount of gas and stool present throughout the colon. There are multiple gas-filled loops of small bowel within the mid and lower abdomen that contain air-fluid levels on the upright film. They are not distended. Enteritis should be considered. I cannot completely exclude a partial or early obstruction or localized ileus. Followup imaging is recommended if clinically indicated. No free air. The exam is otherwise unchanged from the prior. [id number] [facility]
--- NOTE | 2018-10-31 14:57 | CR ---
Date of Service: 10/31/18 Clinical Data: SUPINE AND UPRIGHT ABDOMEN: Comparison is made to a prior exam 10/30. There are scattered air-fluid levels throughout the colon and small bowel on the upright view. No distended loops of bowel. Again, enterocolitis should be considered. I cannot completely exclude a mild ileus or distal obstruction. Followup images are recommended if clinically indicated. No free air. [id number] [facility]
--- NOTE | 2018-10-31 16:59 | PCM.PN ---
- General Info Date of Service: 10/31/18 Subjective Update: Pt has had 2 small soft stools last night, and also has had one episode stool incontinence today morning. Pt claims he still feels distended in his abdomen. Has been NPO and on IV fluids. No nausea or vomiting. No fever or chills. Functional Status: Reports: Pain Controlled, Ambulating, Urinating - Review of Systems General: Denies: Fever, Weakness, Fatigue, Malaise HEENT: Denies: Ear Pain, Headaches, Sinus Congestion, Sore Throat Pulmonary: Denies: Shortness of Breath, Cough, Sputum Cardiovascular: Denies: Chest Pain, Palpitations Gastrointestinal: Reports: Diarrhea. Denies: Abdominal Pain, Flatus, Nausea, Vomiting Genitourinary: Denies: Dysuria, Frequency Musculoskeletal: Denies: Joint Pain, Joint Swelling Skin: Denies: Bruising, Pruritis, Rash Neurological: Denies: Confusion, Dizziness, Headache, Numbness, Tingling - Patient Data Vitals - Most Recent: Last Vital Signs Temp 97.8 F 10/31/18 11:00 Pulse 58 L 10/31/18 11:00 Resp 16 10/31/18 11:00 BP 145/95 H 10/31/18 11:00 Pulse Ox 98 10/31/18 11:00 Weight - Most Recent: 68.492 kg I&O - Last 24 Hours: Intake & Output 10/31/18 10/31/18 10/31/18 06:59 14:59 22:59 Intake Total 1500 Output Total 600 Balance 900 Lab Results Last 24 Hours: Laboratory Results - last 24 hr 10/31/18 Range/Units 08:50 Sodium 139 (136-145) mmol/L Potassium 4.1 (3.5-5.1) mmol/L Chloride 105 (98-107) mmol/L Carbon Dioxide 24.8 (21.0-32.0) mmol/L Anion Gap 13.3 (5.0-15.0) mmol/L BUN 12 (8-26) mg/dL Creatinine 1.17 (0.70-1.30) mg/dL Est Cr Clr Drug Dosing 50.74 mL/min Estimated GFR (MDRD) > 60 (>60) MLS/MIN BUN/Creatinine Ratio 10.3 (6-25) Glucose 73 L D (74-100) mg/dL Calcium 8.1 L (8.5-10.1) mg/dL [place] Results Last 24 Hours: Microbiology 10/30/18 13:00 MRSA Surveillance Culture - Final Nasal, Unspecified NO MRSA ISOLATED 10/30/18 16:37 Clostridioides difficile (PCR) - Final Stool / Feces NEGATIVE CDIFF TOXIN Med Orders - Current: Current Medications Enoxaparin Sodium (Lovenox) 60 mg SUBCUT BID [facility] Last Admin: 10/31/18 08:29 Dose: 60 mg Heparin Sodium (Porcine) (Heparin Lock Flush 100 Units/Ml) 500 units FLUSH ASDIRECTED PRN PRN Reason: IV Use Last Admin: 10/30/18 12:40 Dose: 500 units Sodium Chloride (Normal Saline) 1,000 mls @ 125 mls/hr IV ASDIRECTED LAURA Last Admin: 10/31/18 04:45 Dose: 125 mls/hr Sodium Chloride (Saline Flush) 10 ml FLUSH ASDIRECTED PRN PRN Reason: Keep Vein Open Last Admin: 10/30/18 12:40 Dose: 10 ml Discontinued Medications Lorazepam (Ativan) 1 mg IVPUSH ONETIME ONE Stop: 10/30/18 20:21 Last Admin: 10/30/18 20:38 Dose: 1 mg Simethicone (Simethicone) 160 mg PO ONETIME ONE Stop: 10/31/18 10:58 Last Admin: 10/31/18 11:11 Dose: 160 mg Simethicone (Simethicone) Confirm Administered Dose 160 mg .ROUTE .STK-MED ONE Stop: 10/31/18 10:57 Last Admin: 10/31/18 11:10 Dose: Not Given - Exam General: Alert, Oriented, Cooperative HEENT: Pupils Equal, Pupils Reactive, EOMI, Mucous Membr. Moist/[place] Neck: Supple Lungs: Clear to Auscultation, Normal Respiratory Effort Cardiovascular: Regular Rate, Regular Rhythm GI/Abdominal Exam: Soft, Non-Tender, No Organomegaly, No Abnormal Bruit, No Mass , Pelvis Stable, Distended, Abnormal Bowel Sounds (HAs good Bowel sounds in the all four quadrants, there is hypoactive tinkling note in the periumbilical regionabdomen.) Extremities: Normal Inspection, Normal Range of Motion, Non-Tender, No Pedal Edema, Normal Capillary Refill Skin: Warm, Intact Neurological: No New Focal Deficit - Problem List & Annotations (1) Ileus SNOMED Code(s): 990117142 Code(s): K56.7 - ILEUS, UNSPECIFIED Status: Acute Current Visit: No - Problem List Review Problem List Initiated/Reviewed/Updated: Yes - My Orders Last 24 Hours: My Active Orders 10/30/18 20:00 Enoxaparin [Lovenox] 60 mg SUBCUT BID 10/30/18 Dinner Nothing per Oral Now Diet [DIET] 10/31/18 Dinner Clear Liquid Diet [DIET] - Assessment Assessment:: SB Ileus improving - Plan Plan:: Pt's Xray today shows decreased air fluid levels in the mid abdomen. Also he has had small 23 bowel movements. He still appears distended, but does have normal bowel sounds in all 4 quadrants. His BMP is normal. Plan is to discontinue IV fluids. Encourage oral clear liquid diet. also have given him simethicone to help absorb some of the bowel gas. Apparently patient has had 4 episodes of partial SB ileus over the past 2 wks. His electrolyte are normal. Symptoms are very distorted. any where from simple absent passing flatus to full fledged vomiting and abdominal distension. I did contact Dr. Noriega , general surgeon at [facility]. He thinks there might be related to carcinomatosis of the mesentry causing this partial ileus symptoms. Plan it to encourage oral fluid today. Repeat AXR in am. IF patient tolerating oral fluid well. Will discharge in Am.
[2018-10-31] MEDS ORDERED: cloNIDine 0.1 MG Tab PO ONE (20:00)
[2018-10-31] MEDS ORDERED: amLODIPine 10 MG Tab ONE (20:24)
[2018-11-01] MEDS: Enoxaparin 60 MG/0.6 ML Syringe SUBCUT SCH (08:36)
--- NOTE | 2018-11-01 10:09 | CR ---
DATE OF SERVICE: 11/01/18 CLINICAL DATA: ileus followup UPRIGHT ABDOMEN: Comparison is made to a prior exam dated 10/31/18. There is increased gas throughout the small bowel and colon. Again noted are the scattered air-fluid levels which are more numerous than the prior exam. Again gastroenteritis should be considered. Ileus or distal obstruction cannot be excluded. No free air. [id number] [facility]
--- NOTE | 2018-11-01 12:12 | PCM.DCSUM1 ---
Discharge Summary - Hospital Course Free Text/Narrative:: Pt was admitted with recurrent small bowel ileus on 10/30/18. He was placed on IV normal saline and NPO. His BMP was stable and his creat was normal at 1.25 compared to his last visit when it was 2.29. On the night of 10/30/18, patient did have 2 small semiformed stools. As he has had recurrent loose stools, and frequently in and out of hospital, did check for C-diff, which was negative. On 10/31/18, pt was feeling better, his abdominal distension was slightly better. His repeat AXR showed resolution of the central abdominal air fluid levels. Pt was tolerating clear liquid and had bowel movement. At this point, IV fluids were discontinued. Advised to walk around to help move the bowels. on 11/01/18, pt has been tolerating oral liquids well. He has not had any nausea or vomiting. Also had a bowel movement last night,has been urinating. His repeat abdominal X-ray does show multiple air fluids level. No severe distension noted. He does have typanic bowel sounds in all four quadrants. Pt has been having recurrent Ileus. Hence I had discussed patient condition with Dr. 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 Today, I did contact patient's Oncologist , at [facility] and discuss with him in details of his presentation over the past 2 wks. 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 Presently patient is on clear liquids and has bowel movements. His electrolytes as of yesterday were stable ad normal creat of 1.17. Pt reassured that he has recurrent subacute ileus, As far as he can tolerated oral fluids and has small bowel movements, he should be okay to be discharge on his home meds. Return to emergency room, if she develops abdominal bloating with severe vomiting episodes which might be related to acute ileus or obstruction. I have advised patient to followup with his oncologist. Also he has appointment for his mediastinal biopsy on 11/03/18 at [facility], which I have advised him to keep. Brief History: Presented to emergency room with abdominal bloating and unable to pass stool on 10/30/18, with small bowel ileus. Kindly see H&P for details. Diagnosis: Stroke: No - Discharge Data Discharge Date: 11/01/18 Discharge Disposition: Home, Self-Care 01 Condition: Good - Discharge Diagnosis/Problem(s) (1) Ileus SNOMED Code(s): 995989329 ICD Code: K56.7 - ILEUS, UNSPECIFIED Status: Acute Current Visit: No - Patient Instructions Diet: Clear Liquid Diet Fluid Restriction: 1500 mL Activity: As Tolerated Driving: May Drive Today Showering/Bathing: May Shower - Discharge Plan *PRESCRIPTION DRUG MONITORING PROGRAM REVIEWED*: Not Applicable *COPY OF PRESCRIPTION DRUG MONITORING REPORT IN PATIENT CRISTIAN: Not Applicable Home Medications: Home Meds Simvastatin [Zocor] 20 mg PO DAILY 07/02/15 [History] Enoxaparin [Lovenox] 60 mg SQ BID 10/16/18 [History] Ondansetron [Zofran ODT] 4 mg PO Q6H PRN #10 tab.dis 10/25/18 [Rx] Simethicone [Gas-X] 125 mg PO ASDIRECTED 10/26/18 [History] Forms: ED Department Discharge - Discharge Summary/Plan Comment DC Time >30 min.: Yes - General Info Date of Service: 11/01/18 Functional Status: Reports: Pain Controlled, Tolerating Diet, Ambulating, Urinating - Review of Systems General: Denies: Fever, Weakness, Malaise HEENT: Denies: Sinus Congestion, Rhinitis Pulmonary: Denies: Shortness of Breath, Cough, Sputum, Hemoptysis Cardiovascular: Denies: Chest Pain, Palpitations Gastrointestinal: Denies: Abdominal Pain, Constipation, Diarrhea, Nausea, Vomiting Genitourinary: Denies: Dysuria, Frequency Musculoskeletal: Denies: Joint Pain, Joint Swelling Skin: Denies: Bruising, Pruritis, Rash - Patient Data Vitals - Most Recent: Last Vital Signs Temp 97.9 F 11/01/18 07:00 Pulse 70 11/01/18 07:00 Resp 18 11/01/18 07:00 BP 129/88 11/01/18 07:00 Pulse Ox 98 11/01/18 07:00 Weight - Most Recent: 69.4 kg I&O - Last 24 hours: Intake & Output 10/31/18 11/01/18 11/01/18 22:59 06:59 14:59 Intake Total 1125 150 Output Total 1460 500 Balance -335 -350 KACEY Results - Last 24 hrs: Microbiology 10/30/18 13:00 MRSA Surveillance Culture - Final Nasal, Unspecified NO MRSA ISOLATED Med Orders - Current: Current Medications Enoxaparin Sodium (Lovenox) 60 mg SUBCUT BID [facility] Last Admin: 11/01/18 08:36 Dose: 60 mg Heparin Sodium (Porcine) (Heparin Lock Flush 100 Units/Ml) 500 units FLUSH ASDIRECTED PRN PRN Reason: IV Use Last Admin: 10/30/18 12:40 Dose: 500 units Sodium Chloride (Normal Saline) 1,000 mls @ 125 mls/hr IV ASDIRECTED LAURA Last Admin: 10/31/18 04:45 Dose: 125 mls/hr Sodium Chloride (Saline Flush) 10 ml FLUSH ASDIRECTED PRN PRN Reason: Keep Vein Open Last Admin: 10/30/18 12:40 Dose: 10 ml Discontinued Medications Amlodipine Besylate (Norvasc) 10 mg PO BEDTIME [facility] Last Admin: 10/31/18 20:31 Dose: 10 mg Amlodipine Besylate (Norvasc) Confirm Administered Dose 10 mg .ROUTE .STK-MED ONE Stop: 10/31/18 20:25 Last Admin: 11/01/18 01:18 Dose: Not Given Clonidine HCl (Catapres) 0.1 mg PO ONETIME ONE Stop: 10/31/18 20:01 Last Admin: 10/31/18 20:30 Dose: 0.1 mg Lorazepam (Ativan) 1 mg IVPUSH ONETIME ONE Stop: 10/30/18 20:21 Last Admin: 10/30/18 20:38 Dose: 1 mg Simethicone (Simethicone) 160 mg PO ONETIME ONE Stop: 10/31/18 10:58 Last Admin: 10/31/18 11:11 Dose: 160 mg Simethicone (Simethicone) Confirm Administered Dose 160 mg .ROUTE .STK-MED ONE Stop: 10/31/18 10:57 Last Admin: 10/31/18 11:10 Dose: Not Given - Exam General: Reports: Alert, Oriented, Cooperative HEENT: Reports: Pupils Equal Neck: Reports: Supple Lungs: Reports: Clear to Auscultation Cardiovascular: Reports: Regular Rate, Regular Rhythm GI/Abdominal Exam: Normal Bowel Sounds, Non-Tender, Distended (but has tymphanic notes in all 4 quadants slightly hypoactive) Extremities: Normal Inspection, Normal Range of Motion, Non-Tender, No Pedal Edema, Normal Capillary Refill Skin: Reports: Warm, Intact
[2018-11-01] MEDS ORDERED: amLODIPine 10 MG Tab PO SCH (20:00)
== END 2018-11-01 13:10 | disposition home or self-care (01) ==
LOC: LB.ED 12:40 → LB.MS 13:48 → UNDOADMOB 15:11
PROVIDERS: ADMIT Family Medicine; ATTEND Family Medicine
DX: K56.7 Ileus, unspecified (principal); I12.9 Hypertensive chronic kidney disease with stage 1 through stage 4 chronic kidney disease, or unspecified chronic kidney disease; N18.9 Chronic kidney disease, unspecified; C25.9 Malignant neoplasm of pancreas, unspecified; C79.9 Secondary malignant neoplasm of unspecified site; E78.00 Pure hypercholesterolemia, unspecified; Z79.899 Other long term (current) drug therapy
CPT/HCPCS: 36415; 74018; 74019; 80048; 87493; 96361; 96372; 96374; A9270-GY; G0378; J1642; J1650; J2060; J7030

== ENCOUNTER 2018-12-07 14:40 | Emergency (ER) | payer MEDICARE, OTHER ==
[2018-12-07] MEDS ORDERED: Lidocaine/Prilocaine 2.5-2.5% Crm 5 GM Tube ONE (15:22)
[2018-12-07] MEDS ORDERED: Lidocaine/Prilocaine 2.5-2.5% Crm 5 GM Kit TOP ONE (15:27)
[2018-12-07] MEDS ORDERED: D5 1/2 NS w/ 20 mEq/L KCl 1,000 ML IV SCH (16:45)
--- NOTE | 2018-12-13 12:37 | EDM.PDOC ---
ED HPI GENERAL MEDICAL PROBLEM - General Chief Complaint: General Stated Complaint: URINE COLOR? Time Seen by Provider: 12/07/18 16:00 Source of Information: Reports: Patient, Family History Limitations: Reports: No Limitations - History of Present Illness INITIAL COMMENTS - FREE TEXT/NARRATIVE: This is a 73yo M with metastatic carcinoma of the pancreas. He states he has no appetite, he feels pressure of the abdomen and notes the color of his skin. He feels nauseated and appears very stoic and refuses pain meds. Onset: Gradual Duration: Chronic, Getting Worse Location: Reports: Generalized Quality: Reports: Ache Severity: Severe (Jaudice and abdominal swelling) Improves with: Reports: None Worsens with: Reports: None Associated Symptoms: Reports: Loss of Appetite, Malaise, Nausea/Vomiting, Weakness Back Pain Score (Numeric/FACES): 5 - Related Data Allergies Allergy/AdvReac Type Severity Reaction Status Date / Time No Known Allergies Allergy Verified 12/07/18 16:03 Home Meds: Home Meds Simvastatin [Zocor] 20 mg PO DAILY 07/02/15 [History] Enoxaparin [Lovenox] 60 mg SQ BID 10/16/18 [History] Ondansetron [Zofran ODT] 4 mg PO Q6H PRN #10 tab.dis 10/25/18 [Rx] Simethicone [Gas-X] 125 mg PO ASDIRECTED 10/26/18 [History] Past Medical History HEENT History: Reports: Cataract Cardiovascular History: Reports: High Cholesterol, Hypertension Respiratory History: Reports: Other (See Below) Other Respiratory History: 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, 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 Gastrointestinal History: Reports: Other (See Below) Other Gastrointestinal History: hx pancreatic ca, bowel obstructions, has been in ER x 3 this week Genitourinary History: Reports: Chronic Renal Insuffiency, Other (See Below) Other Genitourinary History: hx kidney stone from pet scan 1 cm, should pass Musculoskeletal History: Reports: Back Pain, Chronic Psychiatric History: Reports: None Endocrine/Metabolic History: Reports: Other (See Below) Other Endocrine/Metabolic History: lymphs infected Oncologic (Cancer) History: Reports: Pancreatic, Prostate, Other (See Below) Other Oncologic History: 2018 currently taking chemotherapy for multiple abnormalities found in abdomen, last chemo in june 2018, pancreatic cancer - Infectious Disease History Other Infectious Disease History: not sure - Past Surgical History HEENT Surgical History: Reports: Cataract Surgery Male Surgical History: Reports: Prostatectomy Musculoskeletal Surgical History: Reports: Hip Replacement, Shoulder Surgery Social & Family History - Family History Family Medical History: Noncontributory - Tobacco Use Smoking Status *Q: Never Smoker Second Hand Smoke Exposure: No - Caffeine Use Caffeine Use: Reports: None - Recreational Drug Use Recreational Drug Use: No ED ROS GENERAL - Review of Systems Review Of Systems: ROS reveals no pertinent complaints other than HPI. ED EXAM, GENERAL - Physical Exam Exam: See Below Exam Limited By: No Limitations General Appearance: Alert, WD/WN, Mild Distress Eye Exam: Bilateral Eye: EOMI, PERRL, Other (jaudice) Ears: Normal External Exam Nose: Normal Inspection Throat/Mouth: Normal Inspection Head: Atraumatic, Normocephalic Neck: Normal Inspection Respiratory/Chest: No Respiratory Distress, Lungs Clear, Normal Breath Sounds Cardiovascular: Normal Peripheral Pulses, Regular Rate, Rhythm GI/Abdominal: Distended, Other (firm) Extremities: Normal Inspection Neurological: Alert, Oriented, CN II-XII Intact Psychiatric: Flat Affect Skin Exam: Jaundice Course - Vital Signs Last Recorded V/S: Last Vital Signs Temp 36.5 C 12/07/18 15:09 Pulse 94 12/07/18 15:09 Resp 18 12/07/18 15:09 BP 119/84 12/07/18 15:09 Pulse Ox 97 12/07/18 15:09 - Orders/Labs/Meds Labs: Laboratory Tests 12/07/18 12/07/18 12/07/18 Range/Units 15:12 15:20 15:20 WBC 5.3 D (4.0-11.0) K/uL RBC 4.43 L (4.50-6.50) M/uL Hgb 13.4 (13.0-18.0) g/dL Hct 38.8 L D (40.0-54.0) % MCV 88 (76-96) fL MCH 30.2 (27.0-32.0) pg MCHC 34.5 (31.0-35.0) g/dL RDW 19.5 H (11.0-16.0) % Plt Count 314 (150-400) K/uL MPV 10.2 H (6.0-10.0) fL Neut % (Auto) 82.2 H (45.0-70.0) % Lymph % (Auto) 8.2 L (20.0-40.0) % [place] % (Auto) 7.9 (3.0-10.0) % Eos % (Auto) 1.5 (1.0-5.0) % Baso % (Auto) 0.2 (0.0-0.5) % Neut # (Auto) 4.39 (2.00-7.50) K/uL Lymph # (Auto) 0.44 L (1.50-4.00) K/uL [place] # (Auto) 0.42 (0.20-0.80) K/uL Eos # (Auto) 0.08 (0.04-0.40) K/uL Baso # (Auto) 0.01 L (0.02-0.10) K/uL Sodium 136 (136-145) mmol/L Potassium 3.4 L (3.5-5.1) mmol/L Chloride 100 (98-107) mmol/L Carbon Dioxide 23.8 (21.0-32.0) mmol/L Anion Gap 15.6 H (5.0-15.0) mmol/L BUN 13 (8-26) mg/dL Creatinine 1.21 (0.70-1.30) mg/dL Est Cr Clr Drug Dosing 48.33 mL/min Estimated GFR (MDRD) 59 L (>60) MLS/MIN BUN/Creatinine Ratio 10.7 (6-25) Glucose 143 H D (74-100) mg/dL Calcium 8.5 (8.5-10.1) mg/dL Total Bilirubin 14.4 H D (0.0-1.0) mg/dL AST 110 H (15-37) U/L ALT 57 (12-78) U/L Alkaline Phosphatase 510 H (46-116) U/L Total Protein 7.0 (6.4-8.2) g/dL Albumin 2.5 L (3.4-5.0) g/dL Globulin 4.5 H (2.2-4.2) g/dL Albumin/Globulin Ratio 0.6 L (0.8-2.0) Urine Color Brown Urine Appearance Slightly cloudy (CLEAR) Urine pH 5.0 (5.0-8.0) Ur Specific [place] 1.020 (1.003-1.030) Urine Protein Unable to report (NEGATIVE) mg/dL Urine Glucose (UA) Unable to report (NEGATIVE) mg/dL Urine Ketones Unable to report (NEGATIVE) mg/dL Urine Occult Blood Negative (NEGATIVE) Urine Nitrite Negative (NEGATIVE) Urine Bilirubin Unable to report (NEGATIVE) Urine Urobilinogen Unable to report (0.2-1.0) E.U./dL Ur Leukocyte Esterase Unable to report (NEGATIVE) Urine RBC 0-5 H /HPF Urine WBC 5-10 H /HPF Ur Squamous Epith Cells Moderate /HPF Urine Bacteria Moderate H /HPF Meds: Medications Discontinued Medications Generic Name Dose Route Start Last Admin Trade Name Freq PRN Reason Stop Dose Admin Heparin Sodium (Porcine) 500 units 12/07/18 16:00 Heparin Lock Flush 100 Units/Ml .ROUTE 12/07/18 16:01 .STK-MED ONE Potassium Chloride/Dextrose/Sod Cl 1,000 mls @ 150 mls/hr 12/07/18 16:45 17:05 D5 1/2 Ns W/ 20 Meq/L Kcl IV 150 mls/hr ASDIRECTED LAURA Administration Lidocaine/Prilocaine Confirm 12/07/18 15:22 12/07/18 16:29 Emla Crm Administered 12/07/18 15:23 Not Given Dose 5 gm .ROUTE .STK-MED ONE Lidocaine/Prilocaine 1 gm 12/07/18 15:27 12/07/18 15:25 Emla Crm TOP 12/07/18 15:28 1 gm ONETIME ONE Administration Departure - Departure Time of Disposition: 17:00 Disposition: Home, Self-Care 01 Condition: Poor Clinical Impression: Pancreatic cancer metastasized to liver, Nausea, Appetite loss - Discharge Information Referrals: PCP,None [Primary Care Provider] - Forms: ED Department Discharge Additional Instructions: Followup on Thursday in the clinic with Dr. Romero. If the clinic has not called you by Thursday with an appt, call [facility] and find out what time is available for you. IF you have further questions or concerns, do not hesitate to contact us. - Problem List & Annotations (1) Ileus SNOMED Code(s): 093869090 Code(s): K56.7 - ILEUS, UNSPECIFIED Status: Chronic (2) Appetite loss SNOMED Code(s): 94271350 Code(s): R63.0 - ANOREXIA Status: Chronic (3) Nausea SNOMED Code(s): 568325284 Code(s): R11.0 - NAUSEA Status: Chronic (4) Pancreatic cancer metastasized to liver SNOMED Code(s): 441226993, 803094514 Code(s): C25.9 - MALIGNANT NEOPLASM OF PANCREAS, UNSPECIFIED; C78.7 - SECONDARY MALIG NEOPLASM OF LIVER AND INTRAHEPATIC BILE DUCT Status: Chronic Priority: High - Problem List Review Problem List Initiated/Reviewed/Updated: Yes - Assessment/Plan Plan: Patient is palliative. He is very stoic and refuses pain meds. Counseled on pain management. Patient counseled on supportive management of Jaudice. Discussed close f/u in clinic and in ER for management of pain. Discussed limited capabilities for Jaundice management due to metastasis.
== END 2018-12-07 19:35 | disposition home or self-care (01) ==
LOC: LB.ED 14:40
DX: C25.9 Malignant neoplasm of pancreas, unspecified (principal); C78.7 Secondary malignant neoplasm of liver and intrahepatic bile duct; R63.0 Anorexia; I10 Essential (primary) hypertension; E78.00 Pure hypercholesterolemia, unspecified; Z79.899 Other long term (current) drug therapy
CPT/HCPCS: 36415; 80053; 81001; 85025; 87086; 87088; 87186; 96365; 96366; 99284; J1642; J3480

== ENCOUNTER 2018-12-21 10:59 | Observation (INO) | payer MEDICARE, OTHER ==
[2018-12-21] MEDS ORDERED: Lidocaine/Prilocaine 2.5-2.5% Crm 5 GM Kit TOP ONE (11:49)
[2018-12-21] MEDS ORDERED: Docusate Sodium 100 MG Cap PO PRN ×2 (11:51→17:57)
[2018-12-21] MEDS ORDERED: fentaNYL 50 MCG/HR Transdermal Patch TRDERM SCH (12:00)
[2018-12-21] MEDS: Nystatin Susp 100,000 Unit/ML 5 ML UD Cup PO SCH ×3 (13:02→21:09)
[2018-12-21] MEDS ORDERED: Ondansetron 4 MG/2 ML SDV ONE ×2 (13:14→19:49)
[2018-12-21] MEDS ORDERED: MVI, Adult with Vitamin K 10 ML, Thiamine 200 MG, Chromium/Copper/Mang/Selen/Zn 1 ML in... IV SCH ×4 (13:15)
--- NOTE | 2018-12-21 13:16 | EDM.PDOC ---
ED HPI GENERAL MEDICAL PROBLEM - General Chief Complaint: General Stated Complaint: ILL Time Seen by Provider: 12/21/18 11:40 Source of Information: Reports: Patient, Family, Old Records - History of Present Illness INITIAL COMMENTS - FREE TEXT/NARRATIVE: This is a 73yo M here for decreased appetite, fatigue and weakness. He has a history of metastatic carcinoma of the pancreas which appears to have progressed to his liver and he has worsening jaundice the past month. He has a distended abdomen and recent history of ileus. He is stoic and does appear to be in pain. He has some white spots of the tongue and oral area. Duration: Constant Location: Reports: Generalized Severity: Moderate Improves with: Reports: None Worsens with: Reports: Movement Associated Symptoms: Reports: Loss of Appetite, Malaise, Nausea/Vomiting, Weakness Back Pain Score (Numeric/FACES): 10 - Related Data Allergies Allergy/AdvReac Type Severity Reaction Status Date / Time No Known Allergies Allergy Verified 12/21/18 11:40 Home Meds: Home Meds Simvastatin [Zocor] 20 mg PO DAILY 07/02/15 [History] Enoxaparin [Lovenox] 60 mg SQ BID 10/16/18 [History] Ondansetron [Zofran ODT] 4 mg PO Q6H PRN #10 tab.dis 10/25/18 [Rx] Simethicone [Gas-X] 125 mg PO ASDIRECTED 10/26/18 [History] Past Medical History HEENT History: Reports: Cataract Cardiovascular History: Reports: High Cholesterol, Hypertension Respiratory History: Reports: Other (See Below) Other Respiratory History: 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, 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 Gastrointestinal History: Reports: Other (See Below) Other Gastrointestinal History: hx pancreatic ca, bowel obstructions, has been in ER x 3 this week Genitourinary History: Reports: Chronic Renal Insuffiency, Other (See Below) Other Genitourinary History: hx kidney stone from pet scan 1 cm, should pass Musculoskeletal History: Reports: Back Pain, Chronic Psychiatric History: Reports: None Endocrine/Metabolic History: Reports: Other (See Below) Other Endocrine/Metabolic History: lymphs infected Hematologic History: Reports: None Oncologic (Cancer) History: Reports: Pancreatic, Prostate, Other (See Below) Other Oncologic History: 2018 currently taking chemotherapy for multiple abnormalities found in abdomen, last chemo in june 2018, pancreatic cancer - Infectious Disease History Other Infectious Disease History: not sure - Past Surgical History HEENT Surgical History: Reports: Cataract Surgery Male Surgical History: Reports: Prostatectomy Musculoskeletal Surgical History: Reports: Hip Replacement, Shoulder Surgery Social & Family History - Family History Family Medical History: Noncontributory - Tobacco Use Smoking Status *Q: Never Smoker Second Hand Smoke Exposure: No - Caffeine Use Caffeine Use: Reports: None - Recreational Drug Use Recreational Drug Use: No ED ROS GENERAL - Review of Systems Review Of Systems: ROS reveals no pertinent complaints other than HPI. ED EXAM, GENERAL - Physical Exam Exam: See Below Exam Limited By: No Limitations General Appearance: Alert, Mild Distress, Thin, Other (jaundiced) Eye Exam: Bilateral Eye: EOMI Nose: Normal Inspection Throat/Mouth: Other (candidiasis of the tongue and oral mucosa) Head: Atraumatic, Normocephalic Neck: Normal Inspection Respiratory/Chest: No Respiratory Distress, Lungs Clear, Normal Breath Sounds Cardiovascular: Normal Peripheral Pulses, Regular Rate, Rhythm GI/Abdominal: Abnormal Bowel Sounds (decreased) Back Exam: Normal Inspection Extremities: Normal Inspection Neurological: Alert, Oriented, CN II-XII Intact Psychiatric: Flat Affect Course - Vital Signs Last Recorded V/S: Last Vital Signs Temp 36.6 C 12/21/18 11:27 Pulse 77 12/21/18 12:46 Resp 21 H 12/21/18 12:46 BP 114/82 12/21/18 12:46 Pulse Ox 98 12/21/18 12:46 - Orders/Labs/Meds Orders: Medication Orders Docusate Sodium (Colace) 200 mg PO DAILY PRN PRN Reason: Constipation Last Admin: 12/21/18 13:02 Dose: 200 mg Fentanyl (Duragesic) 50 mcg TRDERM Q72H [facility] Last Admin: 12/21/18 13:18 Dose: 50 mcg Multivitamins/Minerals 10 ml/Thiamine HCl 200 mg/ Dextrose/Lactated Ringer's 1, 012 mls @ 150 mls/hr IV ASDIRECTED [facility] Stop: 12/22/18 20:45 Last Admin: 12/21/18 14:31 Dose: 150 mls/hr Nystatin (Mycostatin) 5 ml PO QID [facility] Last Admin: 12/21/18 13:02 Dose: 5 ml Ondansetron HCl (Zofran) 4 mg IVPUSH Q4H [facility] Last Admin: 12/21/18 13:28 Dose: 4 mg Meds: Medications Generic Name Dose Route Start Last Admin Trade Name Mauricioq PRN Reason Stop Dose Admin Docusate Sodium 200 mg 12/21/18 11:51 12/21/18 13:02 Colace PO 200 mg DAILY PRN Administration Constipation Fentanyl 50 mcg 12/21/18 12:00 12/21/18 13:18 Duragesic TRDERM 50 mcg Q72H LAURA Administration Multivitamins/Minerals 10 ml/ 1,012 mls @ 150 mls/hr 12/21/18 14:00 12/21/18 14:31 Thiamine HCl 200 mg/ Dextrose/ IV 12/22/18 20:45 150 mls/hr Lactated Ringer's ASDIRECTED LAURA Administration Nystatin 5 ml 12/21/18 12:00 12/21/18 13:02 Mycostatin PO 5 ml QID LAURA Administration Ondansetron HCl 4 mg 12/21/18 13:15 12/21/18 13:28 Zofran IVPUSH 4 mg Q4H LAURA Administration Discontinued Medications Generic Name Dose Route Start Last Admin Trade Name Freq PRN Reason Stop Dose Admin Multivitamins/Minerals 10 ml/ 1,013 mls @ 150 mls/hr 12/21/18 13:15 Thiamine HCl 200 mg/ Chromium/ IV Copper/Manganese/Seleni/Zn 1 ASDIRECTED LAURA ml/ Dextrose/Lactated Ringer's Lidocaine/Prilocaine 2 gm 12/21/18 11:49 12/21/18 11:45 Emla Crm TOP 12/21/18 11:50 2 gm ONETIME ONE Administration Ondansetron HCl Confirm 12/21/18 13:14 12/21/18 13:28 Zofran Administered 12/21/18 13:15 Not Given Dose 4 mg .ROUTE .STK-MED ONE Departure - Departure Time of Disposition: 12:30 Disposition: Refer to Observation Condition: Poor Clinical Impression: Metastatic adenocarcinoma, Jaundice, Elevated liver enzymes, Dehydration, Candidiasis of mouth, Weakness, Palliative care patient Fatigue Qualifiers: Fatigue type: due to neoplasm Qualified Code(s): R53.0 - Neoplastic (malignant ) related fatigue - Discharge Information - Problem List & Annotations (1) Pancreatic cancer metastasized to liver SNOMED Code(s): 488947830, 279709140 Code(s): C25.9 - MALIGNANT NEOPLASM OF PANCREAS, UNSPECIFIED; C78.7 - SECONDARY MALIG NEOPLASM OF LIVER AND INTRAHEPATIC BILE DUCT Status: Chronic Priority: High Current Visit: Yes (2) Nausea SNOMED Code(s): 796282407 Code(s): R11.0 - NAUSEA Status: Chronic Priority: High Current Visit: Yes (3) Appetite loss SNOMED Code(s): 69961131 Code(s): R63.0 - ANOREXIA Status: Chronic Priority: High Current Visit : Yes (4) Candidiasis of mouth SNOMED Code(s): 32166092 Code(s): B37.0 - CANDIDAL STOMATITIS Status: Acute Priority: High Current Visit: Yes (5) Dehydration SNOMED Code(s): 14011235 Code(s): E86.0 - DEHYDRATION Status: Acute Priority: High Current Visit : Yes (6) Elevated liver enzymes SNOMED Code(s): 018856828 Code(s): R74.8 - ABNORMAL LEVELS OF OTHER SERUM ENZYMES Status: Acute Priority: High Current Visit: Yes (7) Fatigue SNOMED Code(s): 38801882 Code(s): R53.83 - OTHER FATIGUE Status: Acute Priority: High Current Visit: Yes Qualifiers: Fatigue type: due to neoplasm Qualified Code(s): R53.0 - Neoplastic ( malignant) related fatigue (8) Jaundice SNOMED Code(s): 45708986 Code(s): R17 - UNSPECIFIED JAUNDICE Status: Acute Priority: High Current Visit: Yes (9) Metastatic adenocarcinoma SNOMED Code(s): 347824311, 125589583, 551469735 Code(s): C79.9 - SECONDARY MALIGNANT NEOPLASM OF UNSPECIFIED SITE Status: Acute Priority: High Current Visit: Yes (10) Palliative care patient SNOMED Code(s): 844196647 Code(s): Z51.5 - ENCOUNTER FOR PALLIATIVE CARE Status: Chronic Priority: High Current Visit: Yes (11) Weakness SNOMED Code(s): 93846272 Code(s): R53.1 - WEAKNESS Status: Acute Priority: High Current Visit: Yes - Problem List Review Problem List Initiated/Reviewed/Updated: Yes - Assessment/Plan Plan: Patient placed in observation for hydration. We will monitor and repeat labs in AM for f/u. Changed Fentanyl to 50mcg TD patch. Zofran as needed.
[2018-12-21] MEDS: Ondansetron 4 MG/2 ML SDV IVPUSH SCH ×3 (13:28→21:11)
[2018-12-21] MEDS: MVI, Adult with Vitamin K 10 ML, Thiamine 200 MG in Dextrose 5%-Lactated Ringers 1,000 ML IV SCH ×6 (14:31→21:06)
[2018-12-21] MEDS ORDERED: Fluconazole 150 MG Tab PO ONE (17:58)
[2018-12-21] MEDS ORDERED: Morphine 2 MG/ML Syringe IVPUSH PRN (18:00)
[2018-12-21] MEDS ORDERED: Promethazine 25 MG/ML SDV ONE (18:14)
[2018-12-21] MEDS: Promethazine 12.5 MG in Sodium Chloride 0.9% 50 ML IV PRN ×2 (18:30→23:24)
[2018-12-21] MEDS ORDERED: Ondansetron 4 MG/2 ML SDV IVPUSH ONE (20:00)
[2018-12-22] MEDS: Ondansetron 4 MG/2 ML SDV IVPUSH SCH ×6 (00:28→21:15)
[2018-12-22] MEDS: Nystatin Susp 100,000 Unit/ML 5 ML UD Cup PO SCH ×4 (09:27→19:30)
[2018-12-22] MEDS ORDERED: cefTRIAXone 2 GM in Sodium Chloride 0.9% 100 ML IV SCH (10:15)
--- NOTE | 2018-12-22 10:34 | PCM.PN ---
- General Info Date of Service: 12/22/18 Subjective Update: Patient has some improvement with pain. He did have a small BM this am and does feel improved. He remains jaundiced and weak. He winces in pain with movement. - Review of Systems General: Reports: Weakness HEENT: Reports: Other (improved throat concerns and discomfort) Pulmonary: Reports: No Symptoms Cardiovascular: Reports: No Symptoms Gastrointestinal: Reports: Abdominal Pain, Decreased Appetite, Nausea (improved) Genitourinary: Reports: No Symptoms Musculoskeletal: Reports: No Symptoms Skin: Reports: Jaundice Neurological: Reports: Weakness - Patient Data Vitals - Most Recent: Last Vital Signs Temp 36.9 C 12/22/18 08:13 Pulse 90 12/22/18 08:13 Resp 16 12/22/18 08:13 BP 125/81 12/22/18 08:13 Pulse Ox 93 L 12/22/18 08:13 Weight - Most Recent: 60.146 kg Lab Results Last 24 Hours: Laboratory Results - last 24 hr 12/21/18 12/21/18 12/22/18 Range/Units 12:15 12:15 07:30 WBC 15.0 H D 26.8 H* D (4.0-11.0) K/uL RBC 4.21 L 4.05 L (4.50-6.50) M/uL Hgb 12.9 L 12.5 L (13.0-18.0) g/dL Hct 37.5 L 36.6 L (40.0-54.0) % MCV 89 90 (76-96) fL MCH 30.6 30.9 (27.0-32.0) pg MCHC 34.4 34.2 (31.0-35.0) g/dL RDW 22.4 H 22.9 H (11.0-16.0) % Plt Count 368 369 (150-400) K/uL MPV 10.2 H 10.3 H (6.0-10.0) fL Neut % (Auto) 94.0 H 97.7 H (45.0-70.0) % Lymph % (Auto) 2.3 L 0.9 L (20.0-40.0) % [place] % (Auto) 3.5 1.4 L (3.0-10.0) % Eos % (Auto) 0.1 L 0.0 L (1.0-5.0) % Baso % (Auto) 0.1 0.0 (0.0-0.5) % Neut # (Auto) 14.07 H 26.16 H (2.00-7.50) K/uL Lymph # (Auto) 0.34 L 0.25 L (1.50-4.00) K/uL [place] # (Auto) 0.53 0.38 (0.20-0.80) K/uL Eos # (Auto) 0.02 L 0.01 L (0.04-0.40) K/uL Baso # (Auto) 0.01 L 0.00 L (0.02-0.10) K/uL Sodium 136 (136-145) mmol/L Potassium 3.7 (3.5-5.1) mmol/L Chloride 101 (98-107) mmol/L Carbon Dioxide 24.0 (21.0-32.0) mmol/L Anion Gap 14.7 (5.0-15.0) mmol/L BUN 31 H D (8-26) mg/dL Creatinine 1.23 (0.70-1.30) mg/dL Est Cr Clr Drug Dosing 44.82 mL/min Estimated GFR (MDRD) 58 L (>60) MLS/MIN BUN/Creatinine Ratio 25.2 H (6-25) Glucose 112 H (74-100) mg/dL Calcium 8.8 (8.5-10.1) mg/dL Total Bilirubin 20.3 H D (0.0-1.0) mg/dL AST 194 H (15-37) U/L ALT 97 H (12-78) U/L Alkaline Phosphatase 857 H (46-116) U/L Total Protein 6.9 (6.4-8.2) g/dL Albumin 2.2 L (3.4-5.0) g/dL Globulin 4.7 H (2.2-4.2) g/dL Albumin/Globulin Ratio 0.5 L (0.8-2.0) 12/22/18 Range/Units 07:30 WBC (4.0-11.0) K/uL RBC (4.50-6.50) M/uL Hgb (13.0-18.0) g/dL Hct (40.0-54.0) % MCV (76-96) fL MCH (27.0-32.0) pg MCHC (31.0-35.0) g/dL RDW (11.0-16.0) % Plt Count (150-400) K/uL MPV (6.0-10.0) fL Neut % (Auto) (45.0-70.0) % Lymph % (Auto) (20.0-40.0) % [place] % (Auto) (3.0-10.0) % Eos % (Auto) (1.0-5.0) % Baso % (Auto) (0.0-0.5) % Neut # (Auto) (2.00-7.50) K/uL Lymph # (Auto) (1.50-4.00) K/uL [place] # (Auto) (0.20-0.80) K/uL Eos # (Auto) (0.04-0.40) K/uL Baso # (Auto) (0.02-0.10) K/uL Sodium 140 (136-145) mmol/L Potassium 3.7 (3.5-5.1) mmol/L Chloride 104 (98-107) mmol/L Carbon Dioxide 25.3 (21.0-32.0) mmol/L Anion Gap 14.4 (5.0-15.0) mmol/L BUN 39 H D (8-26) mg/dL Creatinine 1.34 H (0.70-1.30) mg/dL Est Cr Clr Drug Dosing 41.14 mL/min Estimated GFR (MDRD) 52 L (>60) MLS/MIN BUN/Creatinine Ratio 29.1 H (6-25) Glucose 114 H (74-100) mg/dL Calcium 8.6 (8.5-10.1) mg/dL Total Bilirubin 22.1 H (0.0-1.0) mg/dL AST 164 H (15-37) U/L ALT 88 H (12-78) U/L Alkaline Phosphatase 738 H (46-116) U/L Total Protein 6.3 L (6.4-8.2) g/dL Albumin 1.9 L (3.4-5.0) g/dL Globulin 4.4 H (2.2-4.2) g/dL Albumin/Globulin Ratio 0.4 L (0.8-2.0) Med Orders - Current: Current Medications Docusate Sodium (Colace) 200 mg PO BID PRN PRN Reason: Constipation Fentanyl (Duragesic) 50 mcg TRDERM Q72H [facility] Last Admin: 12/21/18 13:18 Dose: 50 mcg Multivitamins/Minerals 10 ml/Thiamine HCl 200 mg/ Dextrose/Lactated Ringer's 1, 012 mls @ 150 mls/hr IV ASDIRECTED [facility] Stop: 12/22/18 20:45 Last Admin: 12/21/18 21:06 Dose: 150 mls/hr Promethazine HCl 12.5 mg/ (Sodium Chloride) 50.5 mls @ 200 mls/hr IV Q6H PRN PRN Reason: Nausea/Vomiting Last Admin: 12/21/18 23:24 Dose: 200 mls/hr Ceftriaxone Sodium 2 gm/ (Sodium Chloride) 100 mls @ 100 mls/hr IV ONETIME [facility] Last Admin: 12/22/18 09:49 Dose: 100 mls/hr Morphine Sulfate (Morphine) 2 mg IVPUSH Q1H PRN PRN Reason: Breakthrough Pain Nystatin (Mycostatin) 5 ml PO QID [facility] Last Admin: 12/22/18 09:27 Dose: 5 ml Ondansetron HCl (Zofran) 4 mg IVPUSH Q4H [facility] Last Admin: 12/22/18 09:27 Dose: 4 mg Discontinued Medications Docusate Sodium (Colace) 200 mg PO DAILY PRN PRN Reason: Constipation Last Admin: 12/21/18 13:02 Dose: 200 mg Fluconazole (Diflucan) 150 mg PO ONETIME ONE Stop: 12/21/18 17:59 Last Admin: 12/21/18 21:09 Dose: Not Given Multivitamins/Minerals 10 ml/Thiamine HCl 200 mg/ Chromium/Copper/Manganese/ Seleni/Zn 1 ml/ Dextrose/Lactated Ringer's 1,013 mls @ 150 [facility]id[facility]/Prilocaine (Emla Crm) 2 gm TOP ONETIME ONE Stop: 12/21/18 11:50 Last Admin: 12/21/18 11:45 Dose: 2 gm Ondansetron HCl (Zofran) Confirm Administered Dose 4 mg .ROUTE .STK-MED ONE Stop: 12/21/18 13:15 Last Admin: 12/21/18 13:28 Dose: Not Given Ondansetron HCl (Zofran) Confirm Administered Dose 4 mg .ROUTE .STK-MED ONE Stop: 12/21/18 19:50 Last Admin: 12/21/18 20:20 Dose: Not Given Ondansetron HCl (Zofran) 4 mg IVPUSH ONETIME ONE Stop: 12/21/18 20:01 Last Admin: 12/21/18 20:00 Dose: 4 mg Promethazine HCl (Phenergan) Confirm Administered Dose 25 mg .ROUTE .STK-MED ONE Stop: 12/21/18 18:15 Last Admin: 12/21/18 19:04 Dose: Not Given - Exam General: Alert, Oriented HEENT: Pupils Equal, Pupils Reactive, EOMI, Other (jaundiced) Neck: Supple Lungs: Clear to Auscultation, Normal Respiratory Effort Cardiovascular: Regular Rate, Regular Rhythm GI/Abdominal Exam: Tender, Abnormal Bowel Sounds (some normal, some decrease mid abdomen, some hyperactive left upper) Extremities: Normal Inspection Peripheral Pulses: 2+: Dorsalis Pedis (L), Dorsalis Pedis (R) Skin: Warm, Dry, Intact. No: Other (jaundiced) Neurological: No New Focal Deficit - Problem List & Annotations (1) Pancreatic cancer metastasized to liver SNOMED Code(s): 497455606, 885477475 Code(s): C25.9 - MALIGNANT NEOPLASM OF PANCREAS, UNSPECIFIED; C78.7 - SECONDARY MALIG NEOPLASM OF LIVER AND INTRAHEPATIC BILE DUCT Status: Chronic Priority: High Current Visit: Yes (2) Nausea SNOMED Code(s): 259836796 Code(s): R11.0 - NAUSEA Status: Chronic Priority: High Current Visit: Yes (3) Appetite loss SNOMED Code(s): 34717171 Code(s): R63.0 - ANOREXIA Status: Chronic Priority: High Current Visit : Yes (4) Candidiasis of mouth SNOMED Code(s): 31425149 Code(s): B37.0 - CANDIDAL STOMATITIS Status: Acute Priority: High Current Visit: Yes (5) Dehydration SNOMED Code(s): 30852833 Code(s): E86.0 - DEHYDRATION Status: Acute Priority: High Current Visit : Yes (6) Elevated liver enzymes SNOMED Code(s): 403447813 Code(s): R74.8 - ABNORMAL LEVELS OF OTHER SERUM ENZYMES Status: Acute Priority: High Current Visit: Yes (7) Fatigue SNOMED Code(s): 55296838 Code(s): R53.83 - OTHER FATIGUE Status: Acute Priority: High Current Visit: Yes Qualifiers: Fatigue type: due to neoplasm Qualified Code(s): R53.0 - Neoplastic ( malignant) related fatigue (8) Jaundice SNOMED Code(s): 54443023 Code(s): R17 - UNSPECIFIED JAUNDICE Status: Acute Priority: High Current Visit: Yes (9) Metastatic adenocarcinoma SNOMED Code(s): 466553423, 536192663, 071190968 Code(s): C79.9 - SECONDARY MALIGNANT NEOPLASM OF UNSPECIFIED SITE Status: Acute Priority: High Current Visit: Yes (10) Palliative care patient SNOMED Code(s): 976491794 Code(s): Z51.5 - ENCOUNTER FOR PALLIATIVE CARE Status: Chronic Priority: High Current Visit: Yes (11) Weakness SNOMED Code(s): 66169279 Code(s): R53.1 - WEAKNESS Status: Acute Priority: High Current Visit: Yes (12) Ileus, unspecified SNOMED Code(s): 12216617 Code(s): K56.7 - ILEUS, UNSPECIFIED Status: Suspected Priority: High Current Visit: Yes - Problem List Review Problem List Initiated/Reviewed/Updated: Yes - My Orders Last 24 Hours: My Active Orders 12/21/18 11:51 Patient Status [ADT] Routine 12/21/18 12:00 Nystatin [Mycostatin] 5 ml PO QID fentaNYL [Duragesic] 50 mcg TRDERM Q72H 12/21/18 13:15 Ondansetron [Zofran] 4 mg IVPUSH Q4H 12/21/18 14:00 MVI, Adult with Vitamin K [Infuvite Adult] 10 ml Thiamine [Vitamin B-1] 200 mg Dextrose 5%-Lactated Ringers 1,000 ml IV ASDIRECTED 12/21/18 15:55 CULTURE MRSA SURVEY [RM] Routine 12/21/18 17:57 Docusate Sodium [Colace] 200 mg PO BID PRN 12/21/18 17:58 Promethazine [Phenergan] 12.5 mg Sodium Chloride 0.9% [Normal Saline] 50 ml IV Q6H 12/21/18 18:00 Morphine 2 mg IVPUSH Q1H PRN 12/21/18 20:00 NG [Nasogastric Orogastric Tube Insertion] [OM.PC] Routine 12/21/18 Lunch Full Liquid Diet [DIET] 12/22/18 10:15 cefTRIAXone [Rocephin] 2 gm Sodium Chloride 0.9% [Normal Saline] 100 ml IV ONETIME - Plan Plan:: Patient will be monitored and continue hydration at this time. Monitor ileus - liquids as tolerated only. Patient refuses NG tube. Continue nausea management. Pain management for abdominal pain as needed. No further changes to fentanyl patch.
[2018-12-22] MEDS ORDERED: VITAMIN K IV SCH ×2 (10:45)
[2018-12-22] MEDS ORDERED: MVI IV SCH ×2 (10:45)
[2018-12-22] MEDS ORDERED: NACL IV SCH ×2 (10:45)
[2018-12-22] MEDS ORDERED: DEXTROSE IV SCH ×2 (10:45)
[2018-12-22] MEDS ORDERED: SIMVASTATIN 20 MG PO SCH (20:00)
[2018-12-22] MEDS ORDERED: Dextrose 5%-Lactated Ringers 1,000 ML IV SCH (20:00)
[2018-12-22] MEDS ORDERED: Docusate Sodium/Sennosides 50-8.6 MG Tab **OWN MED PO ONE (20:30)
[2018-12-23] MEDS: Ondansetron 4 MG/2 ML SDV IVPUSH SCH ×4 (02:00→12:37)
[2018-12-23] MEDS ORDERED: cefTRIAXone 1 GM in Sodium Chloride 0.9% 50 ML IV ONE (09:14)
[2018-12-23] MEDS: Nystatin Susp 100,000 Unit/ML 5 ML UD Cup PO SCH ×2 (09:17→11:34)
[2018-12-23] MEDS ORDERED: cefTRIAXone 1 GM Vial ONE (11:20)
--- NOTE | 2018-12-23 12:00 | PCM.DCSUM1 ---
Discharge Summary - Discharge Data Discharge Date: 12/23/18 Discharge Disposition: Home, Self-Care 01 Condition: Fair - Discharge Diagnosis/Problem(s) (1) Pancreatic cancer metastasized to liver SNOMED Code(s): 554033184, 418009420 ICD Code: C25.9 - MALIGNANT NEOPLASM OF PANCREAS, UNSPECIFIED; C78.7 - SECONDARY MALIG NEOPLASM OF LIVER AND INTRAHEPATIC BILE DUCT Status: Chronic Priority: High (2) Nausea SNOMED Code(s): 432901630 ICD Code: R11.0 - NAUSEA Status: Chronic Priority: High (3) Appetite loss SNOMED Code(s): 35025619 ICD Code: R63.0 - ANOREXIA Status: Chronic Priority: High (4) Candidiasis of mouth SNOMED Code(s): 99698639 ICD Code: B37.0 - CANDIDAL STOMATITIS Status: Resolved Priority: High (5) Dehydration SNOMED Code(s): 61947829 ICD Code: E86.0 - DEHYDRATION Status: Resolved Priority: High (6) Elevated liver enzymes SNOMED Code(s): 198259797 ICD Code: R74.8 - ABNORMAL LEVELS OF OTHER SERUM ENZYMES Status: Acute Priority: High Problem Details: Resolving (7) Fatigue SNOMED Code(s): 54889461 ICD Code: R53.83 - OTHER FATIGUE Status: Acute Priority: High Qualifiers: Fatigue type: due to neoplasm Qualified Code(s): R53.0 - Neoplastic ( malignant) related fatigue (8) Jaundice SNOMED Code(s): 71130687 ICD Code: R17 - UNSPECIFIED JAUNDICE Status: Acute Priority: High (9) Metastatic adenocarcinoma SNOMED Code(s): 239116418, 324502609, 870321963 ICD Code: C79.9 - SECONDARY MALIGNANT NEOPLASM OF UNSPECIFIED SITE Status: Acute Priority: High (10) Palliative care patient SNOMED Code(s): 565011833 ICD Code: Z51.5 - ENCOUNTER FOR PALLIATIVE CARE Status: Chronic Priority : High (11) Weakness SNOMED Code(s): 65798623 ICD Code: R53.1 - WEAKNESS Status: Acute Priority: High (12) Ileus, unspecified SNOMED Code(s): 98127631 ICD Code: K56.7 - ILEUS, UNSPECIFIED Status: Suspected Priority: High - Discharge Plan Home Medications: Home Meds Simvastatin [Zocor] 20 mg PO DAILY 07/02/15 [History] Enoxaparin [Lovenox] 60 mg SQ BID 10/16/18 [History] Ondansetron [Zofran ODT] 4 mg PO Q6H PRN #10 tab.dis 10/25/18 [Rx] Simethicone [Gas-X] 125 mg PO ASDIRECTED 10/26/18 [History] Patient Handouts: Oral Thrush, Adult, Constipation, Adult, [id number], Dehydration, Adult, [id number], Oral Thrush, Adult, [id number] - Discharge Summary/Plan Comment DC Time >30 min.: Yes Discharge Summary/Plan Comment: Counseled on close monitoring and f/u. Discussed in length treatment for hyperbilirubinemia and pancreatic cancer chemotherapy protocol and risks vs benefits. Patient agreeable to trial of treatment with chemotherapy. We will start arrangements and weekly infusion as per protocol when approved by insurance. Counseled on supportive and conservative care and rtc as directed. - General Info Date of Service: 12/23/18 Subjective Update: Patient has some abdominal fullness but has had 2 more BM's today. He does feel better but continues to feel weak and appear jaundiced. He is more alert and pain is under control. Functional Status: Reports: Pain Controlled - Review of Systems General: Reports: Weakness HEENT: Reports: No Symptoms Pulmonary: Reports: No Symptoms Cardiovascular: Reports: No Symptoms Gastrointestinal: Reports: Abdominal Pain, Decreased Appetite Genitourinary: Reports: No Symptoms Musculoskeletal: Reports: No Symptoms Skin: Reports: Jaundice Neurological: Reports: Weakness - Patient Data Vitals - Most Recent: Last Vital Signs Temp 37.1 C 12/23/18 07:34 Pulse 75 12/23/18 07:34 Resp 16 12/23/18 07:34 BP 131/84 12/23/18 07:34 Pulse Ox 100 12/23/18 07:34 Weight - Most Recent: 60.146 kg I&O - Last 24 hours: Intake & Output 12/22/18 12/23/18 12/23/18 22:59 06:59 14:59 Intake Total 400 Balance 400 Lab Results - Last 24 hrs: Laboratory Results - last 24 hr 12/23/18 12/23/18 Range/Units 07:25 07:25 WBC 14.3 H D (4.0-11.0) K/uL RBC 3.60 L (4.50-6.50) M/uL Hgb 11.1 L (13.0-18.0) g/dL Hct 32.7 L (40.0-54.0) % MCV 91 (76-96) fL MCH 30.8 (27.0-32.0) pg MCHC 33.9 (31.0-35.0) g/dL RDW 23.2 H (11.0-16.0) % Plt Count 321 (150-400) K/uL MPV 10.6 H (6.0-10.0) fL Neut % (Auto) 94.4 H (45.0-70.0) % Lymph % (Auto) 2.6 L (20.0-40.0) % [place] % (Auto) 2.6 L (3.0-10.0) % Eos % (Auto) 0.4 L (1.0-5.0) % Baso % (Auto) 0.0 (0.0-0.5) % Neut # (Auto) 13.54 H (2.00-7.50) K/uL Lymph # (Auto) 0.37 L (1.50-4.00) K/uL [place] # (Auto) 0.37 (0.20-0.80) K/uL Eos # (Auto) 0.06 (0.04-0.40) K/uL Baso # (Auto) 0.00 L (0.02-0.10) K/uL Sodium 139 (136-145) mmol/L Potassium 3.7 (3.5-5.1) mmol/L Chloride 106 (98-107) mmol/L Carbon Dioxide 24.7 (21.0-32.0) mmol/L Anion Gap 12.0 (5.0-15.0) mmol/L BUN 31 H D (8-26) mg/dL Creatinine 0.98 D (0.70-1.30) mg/dL Est Cr Clr Drug Dosing 56.26 mL/min Estimated GFR (MDRD) > 60 (>60) MLS/MIN BUN/Creatinine Ratio 31.6 H (6-25) Glucose 90 (74-100) mg/dL Calcium 8.1 L (8.5-10.1) mg/dL Total Bilirubin 20.9 H (0.0-1.0) mg/dL AST 136 H (15-37) U/L ALT 71 (12-78) U/L Alkaline Phosphatase 603 H (46-116) U/L Total Protein 5.5 L (6.4-8.2) g/dL Albumin 1.6 L (3.4-5.0) g/dL Globulin 3.9 (2.2-4.2) g/dL Albumin/Globulin Ratio 0.4 L (0.8-2.0) Lipase 78 (73-393) U/L KACEY Results - Last 24 hrs: Microbiology 12/21/18 15:55 MRSA Surveillance Culture - Final Nares, Left NO MRSA ISOLATED Med Orders - Current: Current Medications Docusate Sodium (Colace) 200 mg PO BID PRN PRN Reason: Constipation Fentanyl (Duragesic) 50 mcg TRDERM Q72H [facility] Last Admin: 12/21/18 13:18 Dose: 50 mcg Promethazine HCl 12.5 mg/ (Sodium Chloride) 50.5 mls @ 200 mls/hr IV Q6H PRN PRN Reason: Nausea/Vomiting Last Admin: 12/21/18 23:24 Dose: 200 mls/hr Ceftriaxone Sodium 2 gm/ (Sodium Chloride) 100 mls @ 100 mls/hr IV ONETIME [facility] Last Admin: 12/22/18 09:49 Dose: 100 mls/hr Dextrose/Lactated Ringer's (Dextrose 5%-Lactated Ringers) 1,000 mls @ 150 mls/ hr IV ASDIRECTED [facility] Last Admin: 12/22/18 20:08 Dose: 150 mls/hr Morphine Sulfate (Morphine) 2 mg IVPUSH Q1H PRN PRN Reason: Breakthrough Pain Nystatin (Mycostatin) 5 ml PO QID [facility] Last Admin: 12/23/18 11:34 Dose: 5 ml Ondansetron HCl (Zofran) 4 mg IVPUSH Q4H [facility] Last Admin: 12/23/18 09:08 Dose: 4 mg Simvastatin (Zocor) 20 mg PO BEDTIME [facility] Last Admin: 12/22/18 20:22 Dose: 20 mg Discontinued Medications Ceftriaxone Sodium (Rocephin) Confirm Administered Dose 1 gm .ROUTE .STK-MED ONE Stop: 12/23/18 11:21 Last Admin: 12/23/18 11:40 Dose: Not Given Docusate Sodium (Colace) 200 mg PO DAILY PRN PRN Reason: Constipation Last Admin: 12/21/18 13:02 Dose: 200 mg Fluconazole (Diflucan) 150 mg PO ONETIME ONE Stop: 12/21/18 17:59 Last Admin: 12/21/18 21:09 Dose: Not Given Multivitamins/Minerals 10 ml/Thiamine HCl 200 mg/ Chromium/Copper/Manganese/ Seleni/Zn 1 ml/ Dextrose/Lactated Ringer's 1,013 mls @ 150 mls/hr IV ASDIRECTED [facility] Multivitamins/Minerals 10 ml/Thiamine HCl 200 mg/ Dextrose/Lactated Ringer's 1, 012 mls @ 150 mls/hr IV ASDIRECTED [facility] Stop: 12/22/18 20:45 Last Admin: 12/21/18 21:06 Dose: 150 mls/hr Multivitamins/Minerals 10 ml/ (Dextrose/Sodium Chloride) 1,010 mls @ 150 mls/ hr IV ASDIRECTED [facility] Last Admin: 12/22/18 13:19 Dose: 150 mls/hr Ceftriaxone Sodium 1 gm/ (Sodium Chloride) 50 mls @ 100 mls/hr IV ONETIME ONE Stop: 12/23/18 09:43 Last Admin: 12/23/18 11:34 Dose: 100 mls/hr Lidocaine/Prilocaine (Emla Crm) 2 gm TOP ONETIME ONE Stop: 12/21/18 11:50 Last Admin: 12/21/18 11:45 Dose: 2 gm Ondansetron HCl (Zofran) Confirm Administered Dose 4 mg .ROUTE .STK-MED ONE Stop: 12/21/18 13:15 Last Admin: 12/21/18 13:28 Dose: Not Given Ondansetron HCl (Zofran) Confirm Administered Dose 4 mg .ROUTE .STK-MED ONE Stop: 12/21/18 19:50 Last Admin: 12/21/18 20:20 Dose: Not Given Ondansetron HCl (Zofran) 4 mg IVPUSH ONETIME ONE Stop: 12/21/18 20:01 Last Admin: 12/21/18 20:00 Dose: 4 mg Promethazine HCl (Phenergan) Confirm Administered Dose 25 mg .ROUTE .STK-MED ONE Stop: 12/21/18 18:15 Last Admin: 12/21/18 19:04 Dose: Not Given Senna/Docusate Sodium (Senna Plus) 2 tab PO ONETIME ONE Stop: 12/22/18 20:31 Last Admin: 12/22/18 20:22 Dose: 2 tab - Exam General: Reports: Alert, Oriented, Cooperative HEENT: Reports: Pupils Equal, Pupils Reactive, EOMI Neck: Reports: Supple Lungs: Reports: Clear to Auscultation, Normal Respiratory Effort Cardiovascular: Reports: Regular Rate, Regular Rhythm GI/Abdominal Exam: Normal Bowel Sounds, Distended, Tender Back Exam: Reports: Normal Inspection Extremities: Normal Inspection Skin: Reports: Other (jaundiced) Neurological: Reports: No New Focal Deficit
== END 2018-12-23 13:20 | disposition home or self-care (01) ==
LOC: LB.ED 10:59 → UNDOADMOB 11:40 → LB.MS 11:40
PROVIDERS: ADMIT Family Medicine; ATTEND Family Medicine
DX: C25.9 Malignant neoplasm of pancreas, unspecified (principal); C78.7 Secondary malignant neoplasm of liver and intrahepatic bile duct; E86.0 Dehydration; B37.0 Candidal stomatitis; K56.7 Ileus, unspecified; R53.1 Weakness; R63.0 Anorexia; I12.9 Hypertensive chronic kidney disease with stage 1 through stage 4 chronic kidney disease, or unspecified chronic kidney disease; N18.9 Chronic kidney disease, unspecified; E78.00 Pure hypercholesterolemia, unspecified; Z51.5 Encounter for palliative care; Z79.899 Other long term (current) drug therapy
CPT/HCPCS: 36415; 80053; 83690; 85025; 96361; 96365; 96366; 96367; 96368; 96375; 96376; 99285; A9270-GY; G0378; J0696; J2405; J2550; J3411; J7030; J7042; J7050

== ENCOUNTER 2018-12-29 05:58 | Inpatient (IN) | payer MEDICARE, OTHER ==
--- NOTE | 2018-12-29 07:06 | EDM.PDOC ---
<Yoanna Arechiga Orquidea - Last Filed: 12/29/18 07:01> ED HPI GENERAL MEDICAL PROBLEM - General Chief Complaint: General Stated Complaint: DEHYDRATION Time Seen by Provider: 12/29/18 06:50 Source of Information: Reports: Patient, Family, RN History Limitations: Reports: No Limitations - History of Present Illness INITIAL COMMENTS - FREE TEXT/NARRATIVE: 73 yr male presents with weakness, end stage cancer. He has been taking some fluids and eating little. Having some BM and no diarrhea. He did get outside for awhile yesterday, but difficult to get back into the house. He does have a port in place and did get IV fluids last week and antibiotic. He would like to get more fluids today. Skin and conjunctiva are jaundiced. States no pain, has been having some nausea at home. is with him today - Related Data Allergies Allergy/AdvReac Type Severity Reaction Status Date / Time No Known Allergies Allergy Verified 12/29/18 07:06 Home Meds: Home Meds Simvastatin [Zocor] 20 mg PO DAILY 07/02/15 [History] Enoxaparin [Lovenox] 60 mg SQ BID 10/16/18 [History] Ondansetron [Zofran ODT] 4 mg PO Q6H PRN #10 tab.dis 10/25/18 [Rx] Simethicone [Gas-X] 125 mg PO ASDIRECTED 10/26/18 [History] Past Medical History HEENT History: Reports: Cataract Cardiovascular History: Reports: High Cholesterol, Hypertension Respiratory History: Reports: Other (See Below) Other Respiratory History: 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, 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 Gastrointestinal History: Reports: Other (See Below) Other Gastrointestinal History: hx pancreatic ca, bowel obstructions, has been in ER x 3 this week Genitourinary History: Reports: Chronic Renal Insuffiency, Other (See Below) Other Genitourinary History: hx kidney stone from pet scan 1 cm, should pass Musculoskeletal History: Reports: Back Pain, Chronic Psychiatric History: Reports: None Endocrine/Metabolic History: Reports: Other (See Below) Other Endocrine/Metabolic History: lymphs infected Hematologic History: Reports: None Oncologic (Cancer) History: Reports: Pancreatic, Prostate, Other (See Below) Other Oncologic History: 2018 currently taking chemotherapy for multiple abnormalities found in abdomen, last chemo in june 2018, pancreatic cancer - Infectious Disease History Other Infectious Disease History: not sure - Past Surgical History HEENT Surgical History: Reports: Cataract Surgery Male Surgical History: Reports: Prostatectomy Musculoskeletal Surgical History: Reports: Hip Replacement, Shoulder Surgery Social & Family History - Family History Family Medical History: Noncontributory - Caffeine Use Caffeine Use: Reports: None ED ROS GENERAL - Review of Systems Review Of Systems: See Below Constitutional: Reports: Weakness HEENT: Reports: No Symptoms Respiratory: Reports: No Symptoms Cardiovascular: Reports: No Symptoms GI/Abdominal: Reports: Constipation, Decreased Appetite, Distension, Nausea. Denies: Vomiting Musculoskeletal: Reports: Other (weakness) Skin: Reports: Jaundice ED EXAM, GENERAL - Physical Exam Exam: See Below Exam Limited By: No Limitations General Appearance: Alert, No Apparent Distress, Other (weakness) Eye Exam: Bilateral Eye: Other (jaundice) Ears: Hearing Grossly Normal Throat/Mouth: No Airway Compromise, Other (voice is weak) Respiratory/Chest: No Respiratory Distress, Lungs Clear, Normal Breath Sounds Cardiovascular: Regular Rate, Rhythm, No Edema GI/Abdominal: Normal Bowel Sounds, Distended. No: Tender Extremities: Other (moving lower extremities with assist) Neurological: Alert, Oriented, Normal Cognition Skin Exam: Warm, Dry, Jaundice Course - Vital Signs Last Recorded V/S: Last Vital Signs Temp 36.7 C 12/30/18 12:00 Pulse 65 12/30/18 00:00 Resp 20 12/30/18 12:00 BP 101/67 12/30/18 12:00 Pulse Ox 92 L 12/30/18 12:00 - Orders/Labs/Meds Orders: Medication Orders Fentanyl (Duragesic) 50 mcg TRDERM Q[facility]H [facility] Last Admin: 12/30/18 12:03 Dose: 50 mcg Sodium Chloride (Normal Saline) 1,000 mls @ 500 mls/hr IV ASDIRECTED [facility] Last Admin: 12/29/18 07:30 Dose: 250 mls/hr Multivitamins/Minerals 10 ml/Thiamine HCl 200 mg/ Magnesium Sulfate 3 gm/ Dextrose/Lactated Ringer's 1,018 mls @ 125.619 mls/hr IV ASDIRECTED [facility] Last Admin: 12/30/18 14:54 Dose: 125 mls/hr Infusion: 12/30/18 02:02 Dose: 125 mls/hr Admin: 12/29/18 17:53 Dose: 125 mls/hr Infusion: 12/29/18 17:53 Dose: 125 mls/hr Admin: 12/29/18 10:00 Dose: 125 mls/hr Dextrose/Water (Dextrose 10% In Water) 1,000 mls @ 125 mls/hr IV Q8H [facility] Last Admin: 12/30/18 16:07 Dose: 125 mls/hr Metoclopramide HCl (Reglan) 10 mg IV TID [facility] Last Admin: 12/30/18 14:59 Dose: Admin: 12/30/18 11:56 Dose: 10 mg Morphine Sulfate (Morphine) 2 mg IVPUSH Q2H PRN PRN Reason: Pain Last Admin: 12/29/18 22:33 Dose: 2 mg Ondansetron HCl (Zofran Odt) 4 mg PO Q6H PRN PRN Reason: Nausea Ondansetron HCl (Zofran) 4 mg IVPUSH ONETIME PRN PRN Reason: Nausea Last Admin: 12/29/18 22:36 Dose: 4 mg Admin: 12/29/18 17:55 Dose: 4 mg Senna/Docusate Sodium (Senna Plus) 2 tab PO BID PRN PRN Reason: Constipation Last Admin: 12/30/18 02:36 Dose: 2 tab Admin: 12/30/18 00:17 Dose: 2 tab Sodium Chloride (Saline Flush) 10 ml IV ASDIRECTED PRN PRN Reason: FLUSH Last Admin: 12/30/18 11:56 Dose: 10 ml Labs: Laboratory Tests 12/29/18 12/29/18 Range/Units 07:00 07:00 WBC 8.0 D (4.0-11.0) K/uL RBC 3.92 L (4.50-6.50) M/uL Hgb 12.3 L (13.0-18.0) g/dL Hct 36.3 L (40.0-54.0) % MCV 93 (76-96) fL MCH 31.4 (27.0-32.0) pg MCHC 33.9 (31.0-35.0) g/dL RDW 23.6 H (11.0-16.0) % Plt Count 336 (150-400) K/uL MPV 10.4 H (6.0-10.0) fL Neut % (Auto) 91.4 H (45.0-70.0) % Lymph % (Auto) 3.8 L (20.0-40.0) % [place] % (Auto) 3.9 (3.0-10.0) % Eos % (Auto) 0.8 L (1.0-5.0) % Baso % (Auto) 0.1 (0.0-0.5) % Neut # (Auto) 7.27 (2.00-7.50) K/uL Lymph # (Auto) 0.30 L (1.50-4.00) K/uL [place] # (Auto) 0.31 (0.20-0.80) K/uL Eos # (Auto) 0.06 (0.04-0.40) K/uL Baso # (Auto) 0.01 L (0.02-0.10) K/uL Sodium 138 (136-145) mmol/L Potassium 4.0 (3.5-5.1) mmol/L Chloride 103 (98-107) mmol/L Carbon Dioxide 25.5 (21.0-32.0) mmol/L Anion Gap 13.5 (5.0-15.0) mmol/L BUN 36 H (8-26) mg/dL Creatinine 1.13 (0.70-1.30) mg/dL Est Cr Clr Drug Dosing TNP Estimated GFR (MDRD) > 60 (>60) MLS/MIN BUN/Creatinine Ratio 31.9 H (6-25) Glucose 85 (74-100) mg/dL Calcium 8.4 L (8.5-10.1) mg/dL Total Bilirubin 23.0 H (0.0-1.0) mg/dL AST 279 H (15-37) U/L ALT 111 H (12-78) U/L Alkaline Phosphatase 1006 H (46-116) U/L Total Protein 6.1 L (6.4-8.2) g/dL Albumin 1.7 L (3.4-5.0) g/dL Globulin 4.4 H (2.2-4.2) g/dL Albumin/Globulin Ratio 0.4 L (0.8-2.0) Meds: Medications Generic Name Dose Route Start Last Admin Trade Name Freq PRN Reason Stop Dose Admin Fentanyl 50 mcg 12/30/18 12:00 12/30/18 12:03 Duragesic TRDERM 50 mcg Q72H [facility]A Administration Sodium Chloride 1,000 mls @ 500 mls/hr 12/29/18 07:15 12/29/18 07:30 Normal Saline IV 250 mls/hr ASDIRECTED [facility]A Administration Multivitamins/Minerals 10 ml/ 1,018 mls @ 125.619 mls/hr 12/29/18 08:15 12/30 14:54 Thiamine HCl 200 mg/ Magnesium IV 125 mls/hr Sulfate 3 gm/ Dextrose/ ASDIRECTED [facility]A Administration Lactated Ringer's Dextrose/Water 1,000 mls @ 125 mls/hr 12/30/18 16:00 12/30/18 16:07 Dextrose 10% In Water IV 125 mls/hr Q8H [facility]A Administration Metoclopramide HCl 10 mg 12/30/18 14:00 12/30/18 14:59 Reglan IV Not Given TID LAURA Morphine Sulfate 2 mg 12/29/18 07:17 12/29/18 22:33 Morphine IVPUSH 2 mg Q2H PRN Administration Pain Ondansetron HCl 4 mg 12/29/18 07:30 Zofran Odt PO Q6H PRN Nausea Ondansetron HCl 4 mg 12/29/18 08:12 12/29/18 22:36 Zofran IVPUSH 4 mg ONETIME PRN Administration Nausea Senna/Docusate Sodium 2 tab 12/29/18 07:18 12/30/18 02:36 Senna Plus PO 2 tab BID PRN Administration Constipation Sodium Chloride 10 ml 12/30/18 11:38 12/30/18 11:56 Saline Flush IV 10 ml ASDIRECTED PRN Administration FLUSH Discontinued Medications Generic Name Dose Route Start Last Admin Trade Name Olman PRN Reason Stop Dose Admin Docusate Sodium Confirm 12/29/18 23:59 12/30/18 00:17 Colace Administered 12/30/18 00:00 Not Given Dose 100 mg .ROUTE .STK-MED ONE Fentanyl 50 mcg 12/30/18 08:00 Duragesic TRDERM Q72H [facility] Metoclopramide HCl Confirm 12/30/18 11:51 12/30/18 12:03 Reglan Administered 12/30/18 11:52 Not Given Dose 10 mg .ROUTE .STK-MED ONE Pneumococcal Polyvalent Vaccine 0.5 ml 12/29/18 08:31 12/29/18 10:34 Pneumovax 23 IM 12/29/18 08:32 Not Given .ONCE ONE Departure - Departure Time of Disposition: 07:11 Disposition: Refer to Observation Condition: Poor Clinical Impression: Weakness, Dehydration, Jaundice, Pancreatic cancer metastasized to liver - Discharge Information *PRESCRIPTION DRUG MONITORING PROGRAM REVIEWED*: Not Applicable *COPY OF PRESCRIPTION DRUG MONITORING REPORT IN PATIENT CRISTIAN: Not Applicable - Assessment/Plan Plan: Place on observation status for weakness and dehydration, pancreatic cancer with liver metastasis. Labs: CBC, CMP IV Nacl @ 125cc/hr. <Quo,Markus - Last Filed: 12/30/18 17:41> - Problem List & Annotations (1) Dehydration SNOMED Code(s): 42244846 Code(s): E86.0 - DEHYDRATION Status: Acute Priority: High Current Visit : Yes (2) Jaundice SNOMED Code(s): 18204149 Code(s): R17 - UNSPECIFIED JAUNDICE Status: Acute Priority: High Current Visit: Yes (3) Weakness SNOMED Code(s): 56162164 Code(s): R53.1 - WEAKNESS Status: Acute Priority: High Current Visit: Yes (4) Pancreatic cancer metastasized to liver SNOMED Code(s): 665870682, 349538773 Code(s): C25.9 - MALIGNANT NEOPLASM OF PANCREAS, UNSPECIFIED; C78.7 - SECONDARY MALIG NEOPLASM OF LIVER AND INTRAHEPATIC BILE DUCT Status: Chronic Priority: High Current Visit: Yes (5) Elevated liver enzymes SNOMED Code(s): 780894158 Code(s): R74.8 - ABNORMAL LEVELS OF OTHER SERUM ENZYMES Status: Acute Priority: High Current Visit: Yes Annotation/Comment:: Resolving (6) Fatigue SNOMED Code(s): 87504874 Code(s): R53.83 - OTHER FATIGUE Status: Acute Priority: High Current Visit: Yes Qualifiers: Fatigue type: due to neoplasm Qualified Code(s): R53.0 - Neoplastic ( malignant) related fatigue (7) Vomiting SNOMED Code(s): 083834891 Code(s): R11.10 - VOMITING, UNSPECIFIED Status: Acute Priority: High Current Visit: Yes (8) Palliative care patient SNOMED Code(s): 699916711 Code(s): Z51.5 - ENCOUNTER FOR PALLIATIVE CARE Status: Chronic Priority: High Current Visit: Yes
[2018-12-29] MEDS ORDERED: Sodium Chloride 0.9% 1,000 ML IV SCH (07:15)
[2018-12-29] MEDS ORDERED: Morphine 2 MG/ML Syringe IVPUSH PRN (07:17)
[2018-12-29] MEDS ORDERED: Ondansetron 4 MG Tab.DIS PO PRN (07:30)
[2018-12-29] MEDS ORDERED: Pneumococcal Polyvalent-23 Vaccine 0.5 ML SDV IM ONE (08:31)
[2018-12-29] MEDS: [UNRECOGNIZED DRUG - OTHER] IV SCH ×8 (10:00→17:53)
[2018-12-29] MEDS: MAGNESIUM SULFATE IV SCH ×8 (10:00→17:53)
[2018-12-29] MEDS: VITAMIN K IV SCH ×8 (10:00→17:53)
[2018-12-29] MEDS: MVI IV SCH ×8 (10:00→17:53)
[2018-12-29] MEDS: THIAMINE IV SCH ×8 (10:00→17:53)
[2018-12-29] MEDS: Ondansetron 4 MG/2 ML SDV IVPUSH PRN ×2 (17:55→22:36)
[2018-12-29] MEDS ORDERED: Docusate Sodium 100 MG Cap ONE (23:59)
[2018-12-30] MEDS ORDERED: fentaNYL 50 MCG/HR Transdermal Patch TRDERM SCH (08:00)
[2018-12-30] MEDS ORDERED: Sodium Chloride 0.9% 10 ML Syringe IV PRN (11:38)
[2018-12-30] MEDS ORDERED: Metoclopramide 10 MG/2 ML SDV ONE (11:51)
[2018-12-30] MEDS: Metoclopramide 10 MG/2 ML SDV IV SCH ×3 (11:56→20:00)
[2018-12-30] MEDS: fentaNYL 50 MCG/HR Transdermal Patch TRDERM SCH (12:03)
[2018-12-30] MEDS: MAGNESIUM SULFATE IV SCH ×8 (14:54→23:09)
[2018-12-30] MEDS: VITAMIN K IV SCH ×8 (14:54→23:09)
[2018-12-30] MEDS: [UNRECOGNIZED DRUG - OTHER] IV SCH ×8 (14:54→23:09)
[2018-12-30] MEDS: MVI IV SCH ×8 (14:54→23:09)
[2018-12-30] MEDS: THIAMINE IV SCH ×8 (14:54→23:09)
[2018-12-30] MEDS: Dextrose 10% in Water 1,000 ML IV SCH ×2 (16:07→23:10)
--- NOTE | 2018-12-30 17:27 | PCM.PN ---
- General Info Date of Service: 12/30/18 Subjective Update: Patient states he feels very weak with increasing nausea and vomiting. He vomited multiple times last night. He does have increasing pain of the abdomen and swelling. He denies fever or chills. He denies shortness of breath or chest pain. His main concerns are pain, fatigue, jaundice and weakness. Functional Status: Denies: Tolerating Diet - Review of Systems General: Reports: Weakness, Fatigue, Malaise HEENT: Reports: No Symptoms Pulmonary: Reports: No Symptoms Cardiovascular: Reports: No Symptoms Gastrointestinal: Reports: Abdominal Pain, Decreased Appetite, Nausea, Vomiting Genitourinary: Reports: No Symptoms Musculoskeletal: Reports: Back Pain Skin: Reports: Jaundice Neurological: Reports: Weakness Psychiatric: Reports: No Symptoms - Patient Data Vitals - Most Recent: Last Vital Signs Temp 36.7 C 12/30/18 12:00 Pulse 65 12/30/18 00:00 Resp 20 12/30/18 12:00 BP 101/67 12/30/18 12:00 Pulse Ox 92 L 12/30/18 12:00 Weight - Most Recent: 58.786 kg Med Orders - Current: Current Medications Fentanyl (Duragesic) 50 mcg TRDERM Q72H [facility] Last Admin: 12/30/18 12:03 Dose: 50 mcg Sodium Chloride (Normal Saline) 1,000 mls @ 500 mls/hr IV ASDIRECTED [facility] Last Admin: 12/29/18 07:30 Dose: 250 mls/hr Multivitamins/Minerals 10 ml/Thiamine HCl 200 mg/ Magnesium Sulfate 3 gm/ Dextrose/Lactated Ringer's 1,018 mls @ 125.619 mls/hr IV ASDIRECTED [facility] Last Admin: 12/30/18 14:54 Dose: 125 mls/hr Dextrose/Water (Dextrose 10% In Water) 1,000 mls @ 125 mls/hr IV Q8H [facility] Last Admin: 12/30/18 16:07 Dose: 125 mls/hr Metoclopramide HCl (Reglan) 10 mg IV TID [facility] Last Admin: 12/30/18 14:59 Dose: Not Given Morphine Sulfate (Morphine) 2 mg IVPUSH Q2H PRN PRN Reason: Pain Last Admin: 12/29/18 22:33 Dose: 2 mg Ondansetron HCl (Zofran Odt) 4 mg PO Q6H PRN PRN Reason: Nausea Ondansetron HCl (Zofran) 4 mg IVPUSH ONETIME PRN PRN Reason: Nausea Last Admin: 12/29/18 22:36 Dose: 4 mg Senna/Docusate Sodium (Senna Plus) 2 tab PO BID PRN PRN Reason: Constipation Last Admin: 12/30/18 02:36 Dose: 2 tab Sodium Chloride (Saline Flush) 10 ml IV ASDIRECTED PRN PRN Reason: FLUSH Last Admin: 12/30/18 11:56 Dose: 10 ml Discontinued Medications Docusate Sodium (Colace) Confirm Administered Dose 100 mg .ROUTE .STK-MED ONE Stop: 12/30/18 00:00 Last Admin: 12/30/18 00:17 Dose: Not Given Fentanyl (Duragesic) 50 mcg TRDERM Q72H [facility] Metoclopramide HCl (Reglan) Confirm Administered Dose 10 mg .ROUTE .STK-MED ONE Stop: 12/30/18 11:52 Last Admin: 12/30/18 12:03 Dose: Not Given Pneumococcal Polyvalent Vaccine (Pneumovax 23) 0.5 ml IM .ONCE ONE Stop: 12/29/18 08:32 Last Admin: 12/29/18 10:34 Dose: Not Given - Exam General: Alert, Oriented, Cooperative HEENT: Pupils Equal, Pupils Reactive, EOMI Neck: Supple Lungs: Clear to Auscultation, Normal Respiratory Effort Cardiovascular: Regular Rate, Regular Rhythm GI/Abdominal Exam: Distended, Tender, Abnormal Bowel Sounds (decreased with areas of hyperactivity) Extremities: Normal Inspection - Problem List & Annotations (1) Dehydration SNOMED Code(s): 38808633 Code(s): E86.0 - DEHYDRATION Status: Acute Priority: High Current Visit : Yes (2) Jaundice SNOMED Code(s): 32312953 Code(s): R17 - UNSPECIFIED JAUNDICE Status: Acute Priority: High Current Visit: Yes (3) Weakness SNOMED Code(s): 74635233 Code(s): R53.1 - WEAKNESS Status: Acute Priority: High Current Visit: Yes (4) Pancreatic cancer metastasized to liver SNOMED Code(s): 415211620, 605133992 Code(s): C25.9 - MALIGNANT NEOPLASM OF PANCREAS, UNSPECIFIED; C78.7 - SECONDARY MALIG NEOPLASM OF LIVER AND INTRAHEPATIC BILE DUCT Status: Chronic Priority: High Current Visit: Yes (5) Elevated liver enzymes SNOMED Code(s): 237675043 Code(s): R74.8 - ABNORMAL LEVELS OF OTHER SERUM ENZYMES Status: Acute Priority: High Current Visit: Yes Annotation/Comment:: Resolving (6) Fatigue SNOMED Code(s): 75066295 Code(s): R53.83 - OTHER FATIGUE Status: Acute Priority: High Current Visit: Yes Qualifiers: Fatigue type: due to neoplasm Qualified Code(s): R53.0 - Neoplastic ( malignant) related fatigue (7) Vomiting SNOMED Code(s): 180686472 Code(s): R11.10 - VOMITING, UNSPECIFIED Status: Acute Priority: High Current Visit: Yes - Problem List Review Problem List Initiated/Reviewed/Updated: Yes - My Orders Last 24 Hours: My Active Orders 12/30/18 14:00 Metoclopramide [Reglan] 10 mg IV TID - Plan Plan:: Counseled on trial of metoclopramide. Discussed NPO and IVF hydration with D5/ 10 and vitamins. We will monitor for possible ileus vs obstruction. Recheck labs in am. PT/OT for weakness and deconditioning.
[2018-12-31] MEDS: Dextrose 10% in Water 1,000 ML IV SCH ×3 (01:07→14:41)
[2018-12-31] MEDS: Metoclopramide 10 MG/2 ML SDV IV SCH ×3 (08:13→21:00)
--- NOTE | 2018-12-31 09:08 | PCM.PN ---
- General Info Date of Service: 12/31/18 Subjective Update: Patient has some improvement but continues to have no BM. His tenderness of the abdomen has improved slightly. He remains distended and NPO. He has no appetite. He denies fever, no chills, no chest pain or shortness of breath. He does feel very weak and per has been unable to transfer himself and the has noticeably been unable to transfer patient herself since yesterday. Functional Status: Reports: Pain Controlled - Review of Systems General: Reports: Weakness HEENT: Reports: No Symptoms Pulmonary: Reports: No Symptoms Cardiovascular: Reports: No Symptoms Gastrointestinal: Reports: Abdominal Pain, Decreased Appetite, Vomiting Genitourinary: Reports: No Symptoms Musculoskeletal: Reports: No Symptoms Skin: Reports: No Symptoms Neurological: Reports: Weakness Psychiatric: Reports: No Symptoms - Patient Data Vitals - Most Recent: Last Vital Signs Temp 36.5 C 12/30/18 20:00 Pulse 64 12/30/18 20:00 Resp 18 12/30/18 20:00 BP 114/72 12/30/18 20:00 Pulse Ox 100 12/30/18 20:00 Weight - Most Recent: 58.786 kg I&O - Last 24 Hours: Intake & Output 12/30/18 12/31/18 12/31/18 22:59 06:59 14:59 Intake Total 829 2740 Balance 829 2740 Med Orders - Current: Current Medications Fentanyl (Duragesic) 50 mcg TRDERM Q72H ON LICENSE OF [facility] Last Admin: 12/30/18 12:03 Dose: 50 mcg Multivitamins/Minerals 10 ml/Thiamine HCl 200 mg/ Magnesium Sulfate 3 gm/ Dextrose/Lactated Ringer's 1,018 mls @ 125.619 mls/hr IV ASDIRECTED ON LICENSE OF [facility] Last Admin: 12/30/18 23:09 Dose: 125 mls/hr Dextrose/Water (Dextrose 10% In Water) 1,000 mls @ 125 mls/hr IV Q8H ON [facility] OF [facility] Stop: 12/31/18 15:59 Last Admin: 12/31/18 01:07 Dose: Not Given Metoclopramide HCl (Reglan) 10 mg IV TID ON [facility] OF [facility] Last Admin: 12/31/18 08:13 Dose: 10 mg Morphine Sulfate (Morphine) 2 mg IVPUSH Q2H PRN PRN Reason: Pain Last Admin: 12/29/18 22:33 Dose: 2 mg Ondansetron HCl (Zofran Odt) 4 mg PO Q6H PRN PRN Reason: Nausea Ondansetron HCl (Zofran) 4 mg IVPUSH ONETIME PRN PRN Reason: Nausea Last Admin: 12/29/18 22:36 Dose: 4 mg Senna/Docusate Sodium (Senna Plus) 2 tab PO BID PRN PRN Reason: Constipation Last Admin: 12/30/18 02:36 Dose: 2 tab Sodium Chloride (Saline Flush) 10 ml IV ASDIRECTED PRN PRN Reason: FLUSH Last Admin: 12/30/18 11:56 Dose: 10 ml Discontinued Medications Docusate Sodium (Colace) Confirm Administered Dose 100 mg .ROUTE .STK-MED ONE Stop: 12/30/18 00:00 Last Admin: 12/30/18 00:17 Dose: Not Given Fentanyl (Duragesic) 50 mcg TRDERM Q72H ON LICENSE OF [facility] Last Admin: 12/30/18 19:54 Dose: Not Given Sodium Chloride (Normal Saline) 1,000 mls @ 500 mls/hr IV ASDIRECTED ON LICENSE OF [facility] Last Admin: 12/29/18 07:30 Dose: 250 mls/hr Metoclopramide HCl (Reglan) Confirm Administered Dose 10 mg .ROUTE .STK-MED ONE Stop: 12/30/18 11:52 Last Admin: 12/30/18 12:03 Dose: Not Given Pneumococcal Polyvalent Vaccine (Pneumovax 23) 0.5 ml IM .ONCE ONE Stop: 12/29/18 08:32 Last Admin: 12/29/18 10:34 Dose: Not Given - Exam General: Alert, Oriented HEENT: Pupils Equal, Pupils Reactive, EOMI Neck: Supple Lungs: Clear to Auscultation, Normal Respiratory Effort Cardiovascular: Regular Rate, Regular Rhythm GI/Abdominal Exam: Distended, Rigid, Abnormal Bowel Sounds (decreased) Back Exam: Normal Inspection Extremities: Normal Inspection Peripheral Pulses: 2+: Dorsalis Pedis (L), Dorsalis Pedis (R) Skin: Warm, Dry, Intact, Other (jaundiced) Neurological: No New Focal Deficit Psy/Mental Status: Alert, Normal Affect, Normal Mood - Problem List & Annotations (1) Dehydration SNOMED Code(s): 98764415 Code(s): E86.0 - DEHYDRATION Status: Acute Priority: High Current Visit : Yes (2) Jaundice SNOMED Code(s): 98918869 Code(s): R17 - UNSPECIFIED JAUNDICE Status: Acute Priority: High Current Visit: Yes (3) Weakness SNOMED Code(s): 63969706 Code(s): R53.1 - WEAKNESS Status: Acute Priority: High Current Visit: Yes (4) Pancreatic cancer metastasized to liver SNOMED Code(s): 909034122, 412417944 Code(s): C25.9 - MALIGNANT NEOPLASM OF PANCREAS, UNSPECIFIED; C78.7 - SECONDARY MALIG NEOPLASM OF LIVER AND INTRAHEPATIC BILE DUCT Status: Chronic Priority: High Current Visit: Yes (5) Elevated liver enzymes SNOMED Code(s): 155501208 Code(s): R74.8 - ABNORMAL LEVELS OF OTHER SERUM ENZYMES Status: Acute Priority: High Current Visit: Yes Annotation/Comment:: Resolving (6) Fatigue SNOMED Code(s): 75084407 Code(s): R53.83 - OTHER FATIGUE Status: Acute Priority: High Current Visit: Yes Qualifiers: Fatigue type: due to neoplasm Qualified Code(s): R53.0 - Neoplastic ( malignant) related fatigue (7) Vomiting SNOMED Code(s): 678723682 Code(s): R11.10 - VOMITING, UNSPECIFIED Status: Acute Priority: High Current Visit: Yes (8) Palliative care patient SNOMED Code(s): 986877656 Code(s): Z51.5 - ENCOUNTER FOR PALLIATIVE CARE Status: Chronic Priority: High Current Visit: Yes (9) Bowel obstruction SNOMED Code(s): 54529812 Code(s): K56.609 - UNSP INTESTNL OBST, UNSP TO PARTIAL VERSUS COMPLETE OBST Status: Acute Priority: High Current Visit: Yes Qualifiers: Intestinal obstruction type: other intestinal obstruction (10) Ileus SNOMED Code(s): 294602623 Code(s): K56.7 - ILEUS, UNSPECIFIED Status: Acute Priority: High Current Visit: Yes - Problem List Review Problem List Initiated/Reviewed/Updated: Yes - My Orders Last 24 Hours: My Active Orders 12/30/18 14:00 Metoclopramide [Reglan] 10 mg IV TID 12/31/18 05:11 CBC WITH AUTO DIFF [HEME] AM COMPREHENSIVE METABOLIC PN,CMP [CHEM] AM 12/31/18 08:56 Patient Status [ADT] Routine Vital Signs [RC] Q4H - Plan Plan:: Counseled on trial of metoclopramide. Discussed NPO and IVF hydration with D5/ 10 and vitamins. We will monitor for possible ileus vs obstruction. Recheck labs in am. PT/OT for weakness and deconditioning. 12/31/18 Patient will be admitted for colon obstruction. He has been unable to have a BM this week with increasing abdominal distention and pain. He is currently NPO and we will continue IVF hydration at this time. Continue pain management as needed. Continue PT/OT as directed. We did discuss TPN but will try D10 as discussed with photoflash powder mixer for current caloric intake.
[2018-12-31] MEDS: Dextrose 5%-0.9% NaCl with KCl 1,000 ML IV SCH (22:05)
[2019-01-01] MEDS ORDERED: VITAMIN K IV SCH ×4 (08:00)
[2019-01-01] MEDS ORDERED: MAGNESIUM SULFATE IV SCH ×4 (08:00)
[2019-01-01] MEDS ORDERED: [UNRECOGNIZED DRUG - OTHER] IV SCH ×4 (08:00)
[2019-01-01] MEDS ORDERED: THIAMINE IV SCH ×4 (08:00)
[2019-01-01] MEDS ORDERED: MVI IV SCH ×4 (08:00)
[2019-01-01] MEDS: Metoclopramide 10 MG/2 ML SDV IV SCH ×2 (09:12→14:31)
[2019-01-01] MEDS: cefTRIAXone 1 GM in Sodium Chloride 0.9% 50 ML IV SCH (14:31)
[2019-01-01] MEDS ORDERED: Glycerin Adult 2.1 GM Supp RECTAL ONE (17:10)
--- NOTE | 2019-01-01 17:12 | PCM.PN ---
- General Info Date of Service: 01/01/19 Subjective Update: Patient has more strength today. He is able to move about and us his walker to get to the bathroom. Functional Status: Reports: Pain Controlled, Other (Patient is NPO) - Review of Systems General: Reports: Weakness, Malaise HEENT: Reports: No Symptoms Pulmonary: Reports: No Symptoms Cardiovascular: Reports: No Symptoms Gastrointestinal: Reports: Abdominal Pain, Decreased Appetite Genitourinary: Reports: No Symptoms Musculoskeletal: Reports: No Symptoms Skin: Reports: Jaundice Neurological: Reports: Weakness Psychiatric: Reports: Agitation. Denies: Hallucinations, Suicidal Ideation - Patient Data Vitals - Most Recent: Last Vital Signs Temp 36.4 C 01/01/19 12:00 Pulse 60 01/01/19 12:00 Resp 15 01/01/19 04:00 BP 115/75 01/01/19 12:00 Pulse Ox 97 01/01/19 12:00 Weight - Most Recent: 58.786 kg I&O - Last 24 Hours: Intake & Output 01/01/19 01/01/19 01/01/19 06:59 14:59 22:59 Intake Total 1000 Balance 1000 Lab Results Last 24 Hours: Laboratory Results - last 24 hr 01/01/19 01/01/19 Range/Units 09:00 09:00 WBC 11.7 H (4.0-11.0) K/uL RBC 3.16 L (4.50-6.50) M/uL Hgb 10.1 L (13.0-18.0) g/dL Hct 29.0 L (40.0-54.0) % MCV 92 (76-96) fL MCH 32.0 (27.0-32.0) pg MCHC 34.8 (31.0-35.0) g/dL RDW 22.1 H (11.0-16.0) % Plt Count 293 (150-400) K/uL MPV 11.0 H (6.0-10.0) fL Neut % (Auto) 92.3 H (45.0-70.0) % Lymph % (Auto) 3.2 L (20.0-40.0) % [place] % (Auto) 3.8 (3.0-10.0) % Eos % (Auto) 0.6 L (1.0-5.0) % Baso % (Auto) 0.1 (0.0-0.5) % Neut # (Auto) 10.84 H (2.00-7.50) K/uL Lymph # (Auto) 0.37 L (1.50-4.00) K/uL [place] # (Auto) 0.44 (0.20-0.80) K/uL Eos # (Auto) 0.07 (0.04-0.40) K/uL Baso # (Auto) 0.01 L (0.02-0.10) K/uL Sodium 130 L (136-145) mmol/L Potassium 3.6 (3.5-5.1) mmol/L Chloride 99 (98-107) mmol/L Carbon Dioxide 23.1 (21.0-32.0) mmol/L Anion Gap 11.5 (5.0-15.0) mmol/L BUN 23 (8-26) mg/dL Creatinine 1.06 (0.70-1.30) mg/dL Est Cr Clr Drug Dosing 50.84 mL/min Estimated GFR (MDRD) > 60 (>60) MLS/MIN BUN/Creatinine Ratio 21.7 (6-25) Glucose 72 L D (74-100) mg/dL Calcium 7.4 L (8.5-10.1) mg/dL AST 323 H (15-37) U/L ALT 126 H (12-78) U/L Alkaline Phosphatase 845 H (46-116) U/L Total Protein 4.9 L (6.4-8.2) g/dL Albumin 1.3 L (3.4-5.0) g/dL Globulin 3.6 (2.2-4.2) g/dL Albumin/Globulin Ratio 0.4 L (0.8-2.0) Med Orders - Current: Current Medications Fentanyl (Duragesic) 50 mcg TRDERM Q72H [facility] Last Admin: 12/30/18 12:03 Dose: 50 mcg Glycerin (Sani-Supp Adult) 1 supp RECTAL ONETIME ONE Stop: 01/01/19 17:11 Potassium Chloride/Dextrose/Sod Cl (D5 Ns With 20 Meq Kcl) 1,000 mls @ 125 mls/ hr IV ASDIRECTED [facility] Last Admin: 12/31/18 22:05 Dose: 125 mls/hr Ceftriaxone Sodium 1 gm/ (Sodium Chloride) 50 mls @ 200 mls/hr IV Q24H [facility] Last Admin: 01/01/19 14:31 Dose: 200 mls/hr Metoclopramide HCl (Reglan) 10 mg IV TID [facility] Last Admin: 01/01/19 14:31 Dose: 10 mg Morphine Sulfate (Morphine) 2 mg IVPUSH Q2H PRN PRN Reason: Pain Last Admin: 12/29/18 22:33 Dose: 2 mg Ondansetron HCl (Zofran Odt) 4 mg PO Q6H PRN PRN Reason: Nausea Ondansetron HCl (Zofran) 4 mg IVPUSH ONETIME PRN PRN Reason: Nausea Last Admin: 12/29/18 22:36 Dose: 4 mg Senna/Docusate Sodium (Senna Plus) 2 tab PO BID PRN PRN Reason: Constipation Last Admin: 12/31/18 12:16 Dose: 2 tab Sodium Chloride (Saline Flush) 10 ml IV ASDIRECTED PRN PRN Reason: FLUSH Last Admin: 12/30/18 11:56 Dose: 10 ml Discontinued Medications Docusate Sodium (Colace) Confirm Administered Dose 100 mg .ROUTE .ST-MED ONE Stop: 12/30/18 00:00 Last Admin: 12/30/18 00:17 Dose: Not Given Fentanyl (Duragesic) 50 mcg TRDERM Q72H [facility] Last Admin: 12/30/18 19:54 Dose: Not Given Sodium Chloride (Normal Saline) 1,000 mls @ 500 mls/hr IV ASDIRECTED [facility] Last Admin: 12/29/18 07:30 Dose: 250 mls/hr Multivitamins/Minerals 10 ml/Thiamine HCl 200 mg/ Magnesium Sulfate 3 gm/ Dextrose/Lactated Ringer's 1,018 mls @ 125.619 mls/hr IV ASDIRECTED [facility] Last Admin: 12/30/18 23:09 Dose: 125 mls/hr Dextrose/Water (Dextrose 10% In Water) 1,000 mls @ 125 mls/hr IV Q8H [facility] Stop: 12/31/18 15:59 Last Admin: 12/31/18 14:41 Dose: 125 mls/hr Multivitamins/Minerals 10 ml/Thiamine HCl 200 mg/ Magnesium Sulfate 3 gm/ Dextrose/Lactated Ringer's 1,018 mls @ 125.619 mls/hr IV DAILY [facility] Last Admin: 01/01/19 09:12 Dose: 125.619 mls/hr Metoclopramide HCl (Reglan) Confirm Administered Dose 10 mg .ROUTE .STK-MED ONE Stop: 12/30/18 11:52 Last Admin: 12/30/18 12:03 Dose: Not Given Pneumococcal Polyvalent Vaccine (Pneumovax 23) 0.5 ml IM .ONCE ONE Stop: 12/29/18 08:32 Last Admin: 12/29/18 10:34 Dose: Not Given - Exam General: Alert, Oriented, Cooperative HEENT: Pupils Equal, Pupils Reactive, EOMI, Mucous Membr. Moist/[place], Other ( Jaundiced) Neck: Supple Lungs: Clear to Auscultation, Normal Respiratory Effort Cardiovascular: Regular Rate, Regular Rhythm GI/Abdominal Exam: Normal Bowel Sounds, Distended, Other (Bowel sounds slower than yesterday and abdomen more distended than yesterday) Back Exam: Normal Inspection, Full Range of Motion Extremities: Normal Inspection, Normal Range of Motion, Non-Tender, No Pedal Edema, Normal Capillary Refill Peripheral Pulses: 2+: Dorsalis Pedis (L), Dorsalis Pedis (R) Skin: Other (jaundiced) Neurological: No New Focal Deficit - Problem List & Annotations (1) Dehydration SNOMED Code(s): 67590479 Code(s): E86.0 - DEHYDRATION Status: Acute Priority: High Current Visit : Yes (2) Jaundice SNOMED Code(s): 63742020 Code(s): R17 - UNSPECIFIED JAUNDICE Status: Acute Priority: High Current Visit: Yes (3) Weakness SNOMED Code(s): 24186972 Code(s): R53.1 - WEAKNESS Status: Acute Priority: High Current Visit: Yes (4) Pancreatic cancer metastasized to liver SNOMED Code(s): 415747220, 425814766 Code(s): C25.9 - MALIGNANT NEOPLASM OF PANCREAS, UNSPECIFIED; C78.7 - SECONDARY MALIG NEOPLASM OF LIVER AND INTRAHEPATIC BILE DUCT Status: Chronic Priority: High Current Visit: Yes (5) Elevated liver enzymes SNOMED Code(s): 983520025 Code(s): R74.8 - ABNORMAL LEVELS OF OTHER SERUM ENZYMES Status: Acute Priority: High Current Visit: Yes Annotation/Comment:: Resolving (6) Fatigue SNOMED Code(s): 30989668 Code(s): R53.83 - OTHER FATIGUE Status: Acute Priority: High Current Visit: Yes Qualifiers: Fatigue type: due to neoplasm Qualified Code(s): R53.0 - Neoplastic ( malignant) related fatigue (7) Vomiting SNOMED Code(s): 284196103 Code(s): R11.10 - VOMITING, UNSPECIFIED Status: Acute Priority: High Current Visit: Yes (8) Palliative care patient SNOMED Code(s): 490198046 Code(s): Z51.5 - ENCOUNTER FOR PALLIATIVE CARE Status: Chronic Priority: High Current Visit: Yes (9) Bowel obstruction SNOMED Code(s): 32577597 Code(s): K56.609 - UNSP INTESTNL OBST, UNSP TO PARTIAL VERSUS COMPLETE OBST Status: Acute Priority: High Current Visit: Yes Qualifiers: Intestinal obstruction type: other intestinal obstruction (10) Ileus SNOMED Code(s): 717334804 Code(s): K56.7 - ILEUS, UNSPECIFIED Status: Acute Priority: High Current Visit: Yes - Problem List Review Problem List Initiated/Reviewed/Updated: Yes - My Orders Last 24 Hours: My Active Orders 12/31/18 19:45 Dextrose 5%-0.9% NaCl with KCl [D5 NS with 20 mEq KCl] 1,000 ml IV ASDIRECTED 01/01/19 09:00 COMPREHENSIVE METABOLIC PN,CMP [CHEM] Routine 01/01/19 14:00 cefTRIAXone [Rocephin] 1 gm Sodium Chloride 0.9% [Normal Saline] 50 ml IV Q24H 01/01/19 17:10 Glycerin [Sani-Supp Adult] 1 supp RECTAL ONETIME ONE - Plan Plan:: Counseled on trial of metoclopramide. Discussed NPO and IVF hydration with D5/ 10 and vitamins. We will monitor for possible ileus vs obstruction. Recheck labs in am. PT/OT for weakness and deconditioning. 12/31/18 Patient will be admitted for colon obstruction. He has been unable to have a BM this week with increasing abdominal distention and pain. He is currently NPO and we will continue IVF hydration at this time. Continue pain management as needed. Continue PT/OT as directed. We did discuss TPN but will try D10 as discussed with doctor podiatric medicine for current caloric intake. 01/01/19 Patient had a small BM today but has remained stool that he feels may be back up. We will try suppository for relief and continue hydration and metoclopramide. Continue NPO. Discussed elevated liver enzymes and f/u labs in am. Continue current pain management.
[2019-01-01] MEDS: Dextrose 5%-0.9% NaCl with KCl 1,000 ML IV SCH (19:45)
[2019-01-02] MEDS: Metoclopramide 10 MG/2 ML SDV IV SCH ×4 (01:14→21:11)
[2019-01-02] MEDS: Dextrose 5%-0.9% NaCl with KCl 1,000 ML IV SCH (03:35)
[2019-01-02] MEDS: fentaNYL 50 MCG/HR Transdermal Patch TRDERM SCH (11:35)
[2019-01-02] MEDS ORDERED: MVI, Adult with Vitamin K 10 ML in Dextrose 5%-Lactated Ringers 1,000 ML IV SCH ×2 (13:30)
[2019-01-02] MEDS: cefTRIAXone 1 GM in Sodium Chloride 0.9% 50 ML IV SCH (14:13)
--- NOTE | 2019-01-02 14:13 | PCM.PN ---
- General Info Date of Service: 01/02/19 Subjective Update: Patient has improved pain management. He denies any appetite. He has been urinating. He denies fever or chills. He continues to feel very weak. He has tried to have a BM and noticed 1-2 small stools come out since the suppository. Functional Status: Reports: Pain Controlled, Urinating. Denies: Tolerating Diet - Review of Systems General: Reports: Weakness HEENT: Reports: No Symptoms Pulmonary: Reports: No Symptoms Cardiovascular: Reports: No Symptoms Gastrointestinal: Reports: Abdominal Pain, Decreased Appetite Genitourinary: Reports: No Symptoms Musculoskeletal: Reports: Back Pain - Patient Data Vitals - Most Recent: Last Vital Signs Temp 37.1 C 01/02/19 08:00 Pulse 60 01/02/19 08:00 Resp 16 01/02/19 08:00 BP 104/68 01/02/19 08:00 Pulse Ox 98 01/02/19 08:00 Weight - Most Recent: 58.786 kg I&O - Last 24 Hours: Intake & Output 01/01/19 01/02/19 01/02/19 22:59 06:59 14:59 Intake Total 950 1750 Balance 950 1750 Lab Results Last 24 Hours: Laboratory Results - last 24 hr 01/01/19 01/02/19 01/02/19 Range/Units 09:00 08:00 08:00 WBC 12.1 H (4.0-11.0) K/uL RBC 2.65 L (4.50-6.50) M/uL Hgb 8.5 L (13.0-18.0) g/dL Hct 25.1 L (40.0-54.0) % MCV 95 (76-96) fL MCH 32.1 H (27.0-32.0) pg MCHC 33.9 (31.0-35.0) g/dL RDW 22.4 H (11.0-16.0) % Plt Count 323 (150-400) K/uL MPV 11.1 H (6.0-10.0) fL Neut % (Auto) 92.8 H (45.0-70.0) % Lymph % (Auto) 2.9 L (20.0-40.0) % [place] % (Auto) 3.8 (3.0-10.0) % Eos % (Auto) 0.4 L (1.0-5.0) % Baso % (Auto) 0.1 (0.0-0.5) % Neut # (Auto) 11.20 H (2.00-7.50) K/uL Lymph # (Auto) 0.35 L (1.50-4.00) K/uL [place] # (Auto) 0.46 (0.20-0.80) K/uL Eos # (Auto) 0.05 (0.04-0.40) K/uL Baso # (Auto) 0.01 L (0.02-0.10) K/uL Sodium 134 L (136-145) mmol/L Potassium 3.9 (3.5-5.1) mmol/L Chloride 105 (98-107) mmol/L Carbon Dioxide 21.1 (21.0-32.0) mmol/L Anion Gap 11.8 (5.0-15.0) mmol/L BUN 18 D (8-26) mg/dL Creatinine 0.91 (0.70-1.30) mg/dL Est Cr Clr Drug Dosing 59.22 mL/min Estimated GFR (MDRD) > 60 (>60) MLS/MIN BUN/Creatinine Ratio 19.8 (6-25) Glucose 85 (74-100) mg/dL Calcium 7.3 L (8.5-10.1) mg/dL Total Bilirubin 22.0 H (0.0-1.0) mg/dL AST 330 H (15-37) U/L ALT 133 H (12-78) U/L Alkaline Phosphatase 858 H (46-116) U/L Total Protein 4.7 L (6.4-8.2) g/dL Albumin 1.2 L (3.4-5.0) g/dL Globulin 3.5 (2.2-4.2) g/dL Albumin/Globulin Ratio 0.3 L (0.8-2.0) Med Orders - Current: Current Medications Fentanyl (Duragesic) 50 mcg TRDERM Q72H [facility] Last Admin: 01/02/19 11:35 Dose: 50 mcg Potassium Chloride/Dextrose/Sod Cl (D5 Ns With 20 Meq Kcl) 1,000 mls @ 125 mls/ hr IV ASDIRECTED [facility] Last Admin: 01/02/19 03:35 Dose: 125 mls/hr Ceftriaxone Sodium 1 gm/ (Sodium Chloride) 50 mls @ 200 mls/hr IV Q24H [facility] Last Admin: 01/01/19 14:31 Dose: 200 mls/hr Multivitamins/Minerals 10 ml/ (Dextrose/Lactated Ringer's) 1,010 mls @ 75 mls/ hr IV ASDIRECTED [facility] Metoclopramide HCl (Reglan) 10 mg IV TID [facility] Last Admin: 01/02/19 08:58 Dose: 10 mg Morphine Sulfate (Morphine) 2 mg IVPUSH Q2H PRN PRN Reason: Pain Last Admin: 12/29/18 22:33 Dose: 2 mg Ondansetron HCl (Zofran Odt) 4 mg PO Q6H PRN PRN Reason: Nausea Ondansetron HCl (Zofran) 4 mg IVPUSH ONETIME PRN PRN Reason: Nausea Last Admin: 12/29/18 22:36 Dose: 4 mg Senna/Docusate Sodium (Senna Plus) 2 tab PO BID PRN PRN Reason: Constipation Last Admin: 12/31/18 12:16 Dose: 2 tab Sodium Chloride (Saline Flush) 10 ml IV ASDIRECTED PRN PRN Reason: FLUSH Last Admin: 12/30/18 11:56 Dose: 10 ml Discontinued Medications Docusate Sodium (Colace) Confirm Administered Dose 100 mg .ROUTE .STK-MED ONE Stop: 12/30/18 00:00 Last Admin: 12/30/18 00:17 Dose: Not Given Fentanyl (Duragesic) 50 mcg TRDERM Q72H [facility] Last Admin: 12/30/18 19:54 Dose: Not Given Glycerin (Sani-Supp Adult) 1 supp RECTAL ONETIME ONE Stop: 01/01/19 17:11 Last Admin: 01/01/19 19:22 Dose: 1 supp Sodium Chloride (Normal Saline) 1,000 mls [facility]: 12/29/18 07:30 Dose: 250 mls/hr Multivitamins/Minerals 10 ml/Thiamine HCl 200 mg/ Magnesium Sulfate 3 gm/ Dextrose/Lactated Ringer's 1,018 mls @ 125.619 [facility]ls[facility] Last Admin: 12/30/18 23:09 Dose: 125 mls/hr Dextrose/Water (Dextrose 10% In Water) 1,000 mls @ 125 mls/hr IV Q8H [facility] Stop: 12/31/18 15:59 Last Admin: 12/31/18 14:41 Dose: 125 mls/hr Multivitamins/Minerals 10 ml/Thiamine HCl 200 mg/ Magnesium Sulfate 3 gm/ Dextrose/Lactated Ringer's 1,018 mls @ 125.619 mls/hr IV DAILY [facility] Last Admin: 01/01/19 09:12 Dose: 125.619 mls/hr Metoclopramide HCl (Reglan) Confirm Administered Dose 10 mg .ROUTE .STK-MED ONE Stop: 12/30/18 11:52 Last Admin: 12/30/18 12:03 Dose: Not Given Pneumococcal Polyvalent Vaccine (Pneumovax 23) 0.5 ml IM .ONCE ONE Stop: 12/29/18 08:32 Last Admin: 12/29/18 10:34 Dose: Not Given - Exam General: Alert, Oriented, Cooperative HEENT: Pupils Equal, Pupils Reactive, EOMI Neck: Supple Lungs: Clear to Auscultation, Normal Respiratory Effort Cardiovascular: Regular Rate, Regular Rhythm GI/Abdominal Exam: Normal Bowel Sounds, Distended Back Exam: Paraspinal Tenderness Extremities: Pedal Edema Peripheral Pulses: 2+: Dorsalis Pedis (L), Dorsalis Pedis (R) Skin: Warm, Dry, Intact, Other (jaundiced) Neurological: No New Focal Deficit - Problem List & Annotations (1) Dehydration SNOMED Code(s): 28750824 Code(s): E86.0 - DEHYDRATION Status: Acute Priority: High Current Visit : Yes (2) Jaundice SNOMED Code(s): 95805606 Code(s): R17 - UNSPECIFIED JAUNDICE Status: Acute Priority: High Current Visit: Yes (3) Weakness SNOMED Code(s): 01784227 Code(s): R53.1 - WEAKNESS Status: Acute Priority: High Current Visit: Yes (4) Pancreatic cancer metastasized to liver SNOMED Code(s): 815047419, 574526104 Code(s): C25.9 - MALIGNANT NEOPLASM OF PANCREAS, UNSPECIFIED; C78.7 - SECONDARY MALIG NEOPLASM OF LIVER AND INTRAHEPATIC BILE DUCT Status: Chronic Priority: High Current Visit: Yes (5) Elevated liver enzymes SNOMED Code(s): 707319250 Code(s): R74.8 - ABNORMAL LEVELS OF OTHER SERUM ENZYMES Status: Acute Priority: High Current Visit: Yes Annotation/Comment:: Resolving (6) Fatigue SNOMED Code(s): 17334908 Code(s): R53.83 - OTHER FATIGUE Status: Acute Priority: High Current Visit: Yes Qualifiers: Fatigue type: due to neoplasm Qualified Code(s): R53.0 - Neoplastic ( malignant) related fatigue (7) Vomiting SNOMED Code(s): 272902683 Code(s): R11.10 - VOMITING, UNSPECIFIED Status: Acute Priority: High Current Visit: Yes (8) Palliative care patient SNOMED Code(s): 508086805 Code(s): Z51.5 - ENCOUNTER FOR PALLIATIVE CARE Status: Chronic Priority: High Current Visit: Yes (9) Bowel obstruction SNOMED Code(s): 34164914 Code(s): K56.609 - UNSP INTESTNL OBST, UNSP TO PARTIAL VERSUS COMPLETE OBST Status: Acute Priority: High Current Visit: Yes Qualifiers: Intestinal obstruction type: other intestinal obstruction (10) Ileus SNOMED Code(s): 093844257 Code(s): K56.7 - ILEUS, UNSPECIFIED Status: Acute Priority: High Current Visit: Yes (11) Elevated WBC count SNOMED Code(s): 079441527, 126637221 Code(s): D72.829 - ELEVATED WHITE BLOOD CELL COUNT, UNSPECIFIED Status: Acute Priority: High Current Visit: Yes Qualifiers: Leukocytosis type: unspecified Qualified Code(s): D72.829 - Elevated white blood cell count, unspecified - Problem List Review Problem List Initiated/Reviewed/Updated: Yes - My Orders Last 24 Hours: My Active Orders 01/01/19 14:00 cefTRIAXone [Rocephin] 1 gm Sodium Chloride 0.9% [Normal Saline] 50 ml IV Q24H 01/02/19 08:00 COMPREHENSIVE METABOLIC PN,CMP [CHEM] AM 01/02/19 13:30 MVI, Adult with Vitamin K [Infuvite Adult] 10 ml Dextrose 5%-Lactated Ringers 1,000 ml IV ASDIRECTED - Plan Plan:: Counseled on trial of metoclopramide. Discussed NPO and IVF hydration with D5/ 10 and vitamins. We will monitor for possible ileus vs obstruction. Recheck labs in am. PT/OT for weakness and deconditioning. 12/31/18 Patient will be admitted for colon obstruction. He has been unable to have a BM this week with increasing abdominal distention and pain. He is currently NPO and we will continue IVF hydration at this time. Continue pain management as needed. Continue PT/OT as directed. We did discuss TPN but will try D10 as discussed with oil field worker for current caloric intake. 01/01/19 Patient had a small BM today but has remained stool that he feels may be back up. We will try suppository for relief and continue hydration and metoclopramide. Continue NPO. Discussed elevated liver enzymes and f/u labs in am. Continue current pain management. 01/02/19 Patient remains distended. He does feel a slight improvement. He has developed an elevated WBC concerning due to a shift in his Neutrophils. We will start antibiotics due to the elevated WBC. The last time his WBC did resolve with antibiotics. Continue NPO status and considering further suppositories or even an enema. Recheck in am.
[2019-01-02] MEDS ORDERED: MVI, Adult with Vitamin K 10 ML, Thiamine 200 MG in Dextrose 5%-Lactated Ringers 1,000 ML IV SCH ×3 (15:19)
[2019-01-03] MEDS: Dextrose 5%-0.9% NaCl with KCl 1,000 ML IV SCH (03:58)
[2019-01-03] MEDS: Metoclopramide 10 MG/2 ML SDV IV SCH (08:17)
--- NOTE | 2019-01-03 13:57 | PCM.DCSUM1 ---
Discharge Summary - Discharge Data Discharge Date: 01/03/19 Discharge Disposition: Home, Self-Care 01 Condition: Good - Discharge Diagnosis/Problem(s) (1) Dehydration SNOMED Code(s): 30062794 ICD Code: E86.0 - DEHYDRATION Status: Acute Priority: High Current Visit: Yes (2) Jaundice SNOMED Code(s): 08851779 ICD Code: R17 - UNSPECIFIED JAUNDICE Status: Acute Priority: High Current Visit: Yes (3) Weakness SNOMED Code(s): 27106376 ICD Code: R53.1 - WEAKNESS Status: Acute Priority: High Current Visit: Yes (4) Pancreatic cancer metastasized to liver SNOMED Code(s): 535406302, 132402473 ICD Code: C25.9 - MALIGNANT NEOPLASM OF PANCREAS, UNSPECIFIED; C78.7 - SECONDARY MALIG NEOPLASM OF LIVER AND INTRAHEPATIC BILE DUCT Status: Chronic Priority: High Current Visit: Yes (5) Elevated liver enzymes SNOMED Code(s): 763202309 ICD Code: R74.8 - ABNORMAL LEVELS OF OTHER SERUM ENZYMES Status: Acute Priority: High Current Visit: Yes Problem Details: Resolving (6) Fatigue SNOMED Code(s): 55696138 ICD Code: R53.83 - OTHER FATIGUE Status: Acute Priority: High Current Visit: Yes Qualifiers: Fatigue type: due to neoplasm Qualified Code(s): R53.0 - Neoplastic ( malignant) related fatigue (7) Vomiting SNOMED Code(s): 917150096 ICD Code: R11.10 - VOMITING, UNSPECIFIED Status: Acute Priority: High Current Visit: Yes (8) Palliative care patient SNOMED Code(s): 975967349 ICD Code: Z51.5 - ENCOUNTER FOR PALLIATIVE CARE Status: Chronic Priority : High Current Visit: Yes (9) Bowel obstruction SNOMED Code(s): 11647114 ICD Code: K56.609 - UNSP INTESTNL OBST, UNSP TO PARTIAL VERSUS COMPLETE OBST Status: Acute Priority: High Current Visit: Yes Qualifiers: Intestinal obstruction type: other intestinal obstruction (10) Ileus SNOMED Code(s): 511813330 ICD Code: K56.7 - ILEUS, UNSPECIFIED Status: Acute Priority: High Current Visit: Yes (11) Elevated WBC count SNOMED Code(s): 598771763, 329276552 ICD Code: D72.829 - ELEVATED WHITE BLOOD CELL COUNT, UNSPECIFIED Status: Acute Priority: High Current Visit: Yes Qualifiers: Leukocytosis type: unspecified Qualified Code(s): D72.829 - Elevated white blood cell count, unspecified - Patient Instructions Diet: NPO Activity: As Tolerated Driving: Do Not Drive - Discharge Plan *PRESCRIPTION DRUG MONITORING PROGRAM REVIEWED*: Not Applicable *COPY OF PRESCRIPTION DRUG MONITORING REPORT IN PATIENT CRISTIAN: Not Applicable Home Medications: Home Meds Simvastatin [Zocor] 20 mg PO DAILY 07/02/15 [History] Ondansetron [Zofran ODT] 4 mg PO Q6H PRN #10 tab.dis 10/25/18 [Rx] Simethicone [Gas-X] 125 mg PO ASDIRECTED 10/26/18 [History] Lactulose 10 - 15 ml PO Q8HR PRN 12/31/18 [History] Patient Handouts: Jaundice, Adult, [id number] Forms: ED Department Discharge Referrals: PCP,None [Primary Care Provider] - - Discharge Summary/Plan Comment DC Time >30 min.: No Discharge Summary/Plan Comment: Antibiotics started due to elevation in his WBC. Due to his ileus and obstruction there is concern that the bowel bacteria may be a source of infection. Patient would like to go home. Due to his deteriorating condition his life expectancy is less than 6 months. Although it would be beneficial for him to continue as inpatient or transfer to Swing bed we would like to respect his wishes to go home for a little while and return to swing bed for further care as discussed. Patient is palliative and we are glad we can improve his quality of life at this time to be able to function and go home for a short visit as his condition ultimately progresses. - Patient Data Vitals - Most Recent: Last Vital Signs Temp 36.9 C 01/03/19 08:00 Pulse 66 01/03/19 08:00 Resp 16 01/03/19 08:00 BP 129/77 01/03/19 08:00 Pulse Ox 97 01/03/19 08:00 Weight - Most Recent: 58.786 kg I&O - Last 24 hours: Intake & Output 01/02/19 01/03/19 01/03/19 22:59 06:59 14:59 Intake Total 200 1250 Balance 200 1250 Lab Results - Last 24 hrs: Laboratory Results - last 24 hr 06/09/19 Range/Units 08:00 Total Bilirubin 22.6 H (0.0-1.0) mg/dL Med Orders - Current: Current Medications Fentanyl (Duragesic) 50 mcg TRDERM Q72H [facility] Last Admin: 01/02/19 11:35 Dose: 50 mcg Potassium Chloride/Dextrose/Sod Cl (D5 Ns With 20 Meq Kcl) 1,000 mls @ 125 mls/ hr IV ASDIRECTED [facility] Last Admin: 01/03/19 03:58 Dose: 125 mls/hr Ceftriaxone Sodium 1 gm/ (Sodium Chloride) 50 mls @ 200 mls/hr IV Q24H [facility] Last Admin: 01/02/19 14:13 Dose: 200 mls/hr Multivitamins/Minerals 10 ml/Thiamine HCl 200 mg/ Dextrose/Lactated Ringer's 1, 012 mls @ 75 mls/hr IV ASDIRECTED [facility] Last Admin: 01/02/19 15:28 Dose: 75 mls/hr Metoclopramide HCl (Reglan) 10 mg IV TID [facility] Last Admin: 01/03/19 08:17 Dose: 10 mg Morphine Sulfate (Morphine) 2 mg IVPUSH Q2H PRN PRN Reason: Pain Last Admin: 12/29/18 22:33 Dose: 2 mg Ondansetron HCl (Zofran Odt) 4 mg PO Q6H PRN PRN Reason: Nausea Ondansetron HCl (Zofran) 4 mg IVPUSH ONETIME PRN PRN Reason: Nausea Last Admin: 12/29/18 22:36 Dose: 4 mg Senna/Docusate Sodium (Senna Plus) 2 tab PO BID PRN PRN Reason: Constipation Last Admin: 12/31/18 12:16 Dose: 2 tab Sodium Chloride (Saline Flush) 10 ml IV ASDIRECTED PRN PRN Reason: FLUSH Last Admin: 12/30/18 11:56 Dose: 10 ml Discontinued Medications Docusate Sodium (Colace) Confirm Administered Dose 100 mg .ROUTE .STK-MED ONE Stop: 12/30/18 00:00 Last Admin: 12/30/18 00:17 Dose: Not Given Fentanyl (Duragesic) 50 mcg TRDERM Q72H [facility] Last Admin: 12/30/18 19:54 Dose: Not Given Glycerin (Sani-Supp Adult) 1 supp RECTAL ONETIME ONE Stop: 01/01/19 17:11 Last Admin: 01/01/19 19:22 Dose: 1 supp Sodium Chloride (Normal Saline) 1,000 mls @ 500 mls/hr IV ASDIRECTED [facility] Last Admin: 12/29/18 07:30 Dose: 250 mls/hr Multivitamins/Minerals 10 ml/Thiamine HCl 200 mg/ Magnesium Sulfate 3 gm/ Dextrose/Lactated Ringer's 1,018 mls @ 125.619 mls/hr IV ASDIRECTED [facility] Last Admin: 12/30/18 23:09 Dose: 125 mls/hr Dextrose/Water (Dextrose 10% In Water) 1,000 mls @ 125 mls/hr IV Q8H [facility] Stop: 12/31/18 15:59 Last Admin: 12/31/18 14:41 Dose: 125 mls/hr Multivitamins/Minerals 10 ml/Thiamine HCl 200 mg/ Magnesium Sulfate 3 gm/ Dextrose/Lactated Ringer's 1,018 mls @ 125.619 mls/hr IV DAILY [facility] Last Admin: 01/01/19 09:12 Dose: 125.619 mls/hr Multivitamins/Minerals 10 ml/ (Dextrose/Lactated Ringer's) 1,010 mls @ 75 mls/ hr IV ASDIRECTED [facility] Metoclopramide HCl (Reglan) Confirm Administered Dose 10 mg .ROUTE .STK-MED ONE Stop: 12/30/18 11:52 Last Admin: 12/30/18 12:03 Dose: Not Given Pneumococcal Polyvalent Vaccine (Pneumovax 23) 0.5 ml IM .ONCE ONE Stop: 12/29/18 08:32 Last Admin: 12/29/18 10:34 Dose: Not Given
== END 2019-01-03 09:50 | disposition home or self-care (01) | DRG 389 ==
LOC: LB.ED 05:58 → LB.MS 07:22 → UNDOADMOB 07:22 → LB.MS 09:03 → OBSVTOIN 12-31 08:56
PROVIDERS: ADMIT Nurse Practitioner Family; ATTEND Family Medicine
DX: K56.7 Ileus, unspecified (principal); R53.1 Weakness; R14.0 Abdominal distension (gaseous); C25.9 Malignant neoplasm of pancreas, unspecified; C78.7 Secondary malignant neoplasm of liver and intrahepatic bile duct; R17 Unspecified jaundice; Z51.5 Encounter for palliative care; K56.609 Unspecified intestinal obstruction, unspecified as to partial versus complete obstruction; R53.0 Neoplastic (malignant) related fatigue; R11.10 Vomiting, unspecified; E86.0 Dehydration; I12.9 Hypertensive chronic kidney disease with stage 1 through stage 4 chronic kidney disease, or unspecified chronic kidney disease; N18.9 Chronic kidney disease, unspecified; D72.829 Elevated white blood cell count, unspecified; Z85.46 Personal history of malignant neoplasm of prostate; E78.00 Pure hypercholesterolemia, unspecified; M54.9 Dorsalgia, unspecified; G89.29 Other chronic pain; Z87.442 Personal history of urinary calculi; Z92.21 Personal history of antineoplastic chemotherapy; Z96.649 Presence of unspecified artificial hip joint
CPT/HCPCS: 36415 ×2; 80053; 85025; 96361 ×3; 96365; 96366 ×2; 96375 ×2; 96376 ×3; 99285; A9270 ×3; G0378 ×3; J2270; J2405 ×2; J2765 ×3; J3411 ×4; J3475 ×4; J7030; J7042 ×4; J7060 ×2; 96360; J0696; J3480; J7050